=== PATIENT | female | born 1955 | race Caucasian/White ===

== ENCOUNTER 2019-06-15 04:40 | Inpatient (IN) | payer MEDICAID ==
[~2019-06-15] VITALS: Ht 157.5 cm; Wt 67.8 kg
--- NOTE | 2019-06-15 04:49 | PHYS DOC ---
Adult General Chief Complaint Chief Complaint: cough and shortness of breath HPI HPI Patient is a 63-year-old female who arrives via EMS with report of cough and shortness of breath for the last couple of weeks. Patient states that she believes that she she states that symptoms are progressively worsening since onset. She states that she has shortness of breath especially with exertion. She indicates that cough is really not been productive but she feels like she has to get mucus up. She states that she has soreness in her chest that she leaves is due to the coughing. She states that it is worsened with the coughing. She rates that pain as moderate. She is not sure whether or not she has been running a fever. She does admit some chills.[] Review of Systems Review of Systems Constitutional: Positive chills [] Respiratory: Positive cough and shortness of breath [] Cardiovascular: No additional information not addressed in HPI [] GI: Denies abdominal pain, nausea, vomiting or diarrhea [] Integument: Denies rash or skin lesions [] Neurologic: Denies headache, focal weakness or sensory changes [] All other systems were reviewed and found to be within normal limits, except as documented in this note. Current Medications Current Medications Current Medications Medications (Trade) Dose Ordered Sig/Candis Start Time Stop Time Status Last Admin Dose Admin Albuterol Sulfate (Ventolin Neb Soln) 5 mg 1X ONCE 06/15/19 05:30 06/15/19 05:31 DC 06/15/19 05:17 5 MG Azithromycin (Zithromax) 500 mg 1X ONCE 06/15/19 05:30 06/15/19 05:31 UNV Ceftriaxone Sodium (Rocephin) 1 gm 1X ONCE 06/15/19 05:30 06/15/19 05:31 UNV Ipratropium [place] (Atrovent) 0.5 mg 1X ONCE 06/15/19 05:30 06/15/19 05:31 DC 06/15/19 05:17 0.5 MG Sodium Chloride 1,000 ml @ 1,000 mls/hr 1X ONCE 06/15/19 05:30 06/15/19 06:29 UNV Allergies Allergies Allergies Coded Allergies Type Severity Reaction Last Updated Verified No Known Drug Allergies 06/15/19 No Physical Exam Physical Exam Constitutional: Well developed, well nourished, in mild respiratory distress. [] HENT: Normocephalic, atraumatic, bilateral external ears normal, oropharynx moist, no oral exudates, nose normal. [] Eyes: PERRLA, EOMI, conjunctiva normal, no discharge. [] Neck: Normal range of motion, no tenderness, supple, no stridor. [] Cardiovascular: Regular rate and rhythm[] Lungs & Thorax: Fairly good air movement is noted throughout with coarse insp iratory and expiratory wheezes and rhonchi to auscultation [] Abdomen: Bowel sounds normal, soft, no tenderness. [] Skin: Warm, dry, no erythema, no rash. [] Extremities: No tenderness, no cyanosis, no clubbing, ROM intact. [] Neurologic: Alert and oriented X 3, no focal deficits noted. [] Current Patient Data Vital Signs Vital Signs Date Time Temp Pulse Resp B/P (MAP) Pulse Ox O2 Delivery O2 Flow Rate FiO2 06/15/19 05:17 95 Room Air Lab Values Laboratory Tests Test 06/15/19 04:50 06/15/19 05:05 Influenza Type A Antigen Negative (NEGATIVE) Influenza Type B Antigen Negative (NEGATIVE) White Blood Count 17.0 x10^3/uL (4.0-11.0) H Red Blood Count 3.85 x10^6/uL (3.50-5.40) Hemoglobin 13.0 g/dL (12.0-15.5) Hematocrit 37.8 % (36.0-47.0) Mean Corpuscular Volume 98 fL (79-100) Mean Corpuscular Hemoglobin 34 pg (25-35) Mean Corpuscular Hemoglobin Concent 35 g/dL (31-37) Red Cell Distribution Width 14.4 % (11.5-14.5) Platelet Count 73 x10^3/uL (140-400) L Neutrophils (%) (Auto) 85 % (31-73) H Lymphocytes (%) (Auto) 3 % (24-48) L Monocytes (%) (Auto) 11 % (0-9) H Eosinophils (%) (Auto) 0 % (0-3) Basophils (%) (Auto) 0 % (0-3) Neutrophils # (Auto) 14.5 x10^3/uL (1.8-7.7) H Lymphocytes # (Auto) 0.6 x10^3/uL (1.0-4.8) L Monocytes # (Auto) 1.8 x10^3/uL (0.0-1.1) H Eosinophils # (Auto) 0.1 x10^3/uL (0.0-0.7) Basophils # (Auto) 0.0 x10^3/uL (0.0-0.2) Platelet Estimate Pending Sodium Level 136 mmol/L (136-145) Potassium Level 3.6 mmol/L (3.5-5.1) Chloride Level 101 mmol/L (98-107) Carbon Dioxide Level 25 mmol/L (21-32) Anion Gap 10 (6-14) Blood Urea Nitrogen 9 mg/dL (7-20) Creatinine 0.7 mg/dL (0.6-1.0) Estimated GFR (Cockcroft-Gault) 85.1 BUN/Creatinine Ratio 13 (6-20) Glucose Level 133 mg/dL (70-99) H Calcium Level 8.5 mg/dL (8.5-10.1) Total Bilirubin 2.0 mg/dL (0.2-1.0) H Aspartate Amino Transferase (AST) 79 U/L (15-37) H Alanine Aminotransferase (ALT) 63 U/L (14-59) H Alkaline Phosphatase 184 U/L (46-116) H Total Protein 8.1 g/dL (6.4-8.2) Albumin 2.6 g/dL (3.4-5.0) L Albumin/Globulin Ratio 0.5 (1.0-1.7) L Laboratory Tests 06/15/19 05:05 Laboratory Tests 06/15/19 05:05 EKG EKG [] Radiology/Procedures Radiology/Procedures [] Course & Med Decision Making Course & Med Decision Making Pertinent Labs and Imaging studies reviewed. (See chart for details) [] Dragon Disclaimer Dragon Disclaimer This electronic medical record was generated, in whole or in part, using a voice recognition dictation system. Departure Departure Impression: Primary Impression: CAP (community acquired pneumonia) Disposition: ADMITTED INPATIENT Admitting Physician: [facility] (Dr. Vences) Condition: IMPROVED Problem Qualifiers Primary Impression: CAP (community acquired pneumonia) Laterality: unspecified laterality Qualified Codes: J18.9 - Pneumonia, unspecified organism FERNANDO PERRY Jr. DO Jun 15, 2019 04:49
--- NOTE | 2019-06-15 05:04 | RAD ---
PORTABLE CHEST 1V History: Cough Comparison: None. Findings: Patchy left basilar opacity. No pneumothorax. Normal heart size. No pleural effusion. Calcified left lateral basilar nodule. Rounded density projecting over the right upper quadrant. Impression: 1. Patchy left basilar opacity, may represent atelectasis or consolidation. PA and lateral view the chest can better assess if clinically indicated. 2. Rounded density projecting over the right upper quadrant, may represent cholelithiasis. Electronically signed by: Ritchie Aguirre DO (06/15/2019 5:01 AM) [facility]
[2019-06-15 05:25] LABS: CALCIUM 8.5 mg/dL (8.5-10.1); CREATININE 0.7 mg/dL (0.6-1.0); GFR 85.1; POTASSIUM 3.6 mmol/L (3.5-5.1)
[2019-06-15 05:28] LABS: BASO % 0 % (0-3); EOS # 0.1 x10^3/uL (0.0-0.7); EOS % 0 % (0-3); HEMATOCRIT 37.8 % (36.0-47.0); LYMPH # 0.6 x10^3/uL (1.0-4.8); LYMPH % 3 % (24-48); MEAN CORPUSCULAR HEMOGLOBIN 34 pg (25-35); MEAN CORPUSCULAR HGB CONC 35 g/dL (31-37); MEAN CORPUSCULAR VOLUME 98 fL (79-100); MONO # 1.8 x10^3/uL (0.0-1.1); MONO % 11 % (0-9); NEUT # 14.5 x10^3/uL (1.8-7.7); NEUT % 85 % (31-73); RED BLOOD COUNT 3.85 x10^6/uL (3.50-5.40); RED CELL DISTRIBUTION WIDTH 14.4 % (11.5-14.5)
[2019-06-15 05:29] LABS: PLATELET COUNT 73 x10^3/uL (140-400)
[2019-06-15] MEDS ORDERED: ALBUTEROL SULFATE 2.5 MG/3 ML NEBU. NEB ONE (05:30)
[2019-06-15] MEDS ORDERED: IPRATROPIUM BROMIDE 0.5 MG/2.5 ML NEBU. NEB ONE (05:30)
[2019-06-15 05:31] LABS: ALBUMIN 2.6 g/dL (3.4-5.0); ALBUMIN/GLOBULIN RATIO 0.5 (1.0-1.7); TOTAL PROTEIN 8.1 g/dL (6.4-8.2)
[2019-06-15 05:33] LABS: INFLUENZA A PATIENT NEGATIVE (NEGATIVE); INFLUENZA B PATIENT NEGATIVE (NEGATIVE)
[2019-06-15] MEDS ORDERED: ACETAMINOPHEN 325 MG TABLET. PO PRN ×2 (05:45→13:00)
[2019-06-15] MEDS ORDERED: MORPHINE SULFATE 2 MG/ML VIAL. IV PRN (05:45)
[2019-06-15] MEDS ORDERED: ONDANSETRON PF 4 MG/2 ML VIAL. IV PRN ×2 (05:45→13:00)
[2019-06-15] MEDS ORDERED: AZITHROMYCIN 250 MG TABLET. PO ONE (06:00)
[2019-06-15] MEDS ORDERED: IV NORMAL SALINE 1000ML BAG 1,000 ML IV ONE (06:00)
[2019-06-15] MEDS ORDERED: cefTRIAXone IV Push 1 GM VIAL. IVP ONE (06:00)
[2019-06-15 06:10] LABS: % BANDS 15 % (0-9); % EOS 2 % (0-5); % LYMPHS 6 % (24-48); % MONOS 10 % (0-10); % MYELOS 1 % (0-0); % SEGS 66 % (35-66)
[2019-06-15 06:12] LABS: PLT ESTIMATE DECREASED (ADEQUATE)
--- NOTE | 2019-06-15 06:50 | EKG ---
[facility] [address] [place] [address] Test Date: 2019-06-15 Test Time: 04:50:14 Pat Name: JOHN NEGRO Department: Room: Gender: F Beauty Sales Consultant: : 1955 Requested By: FERNANDO PERRY Order Number: [id number] Reading MD: Measurements Intervals [place] Rate: 93 P: 104 MS: 130 QRS: -1 QRSD: 94 T: 90 QT: 340 QTc: 425 Interpretive Statements SINUS RHYTHM LEFTWARD AXIS RVH WITH REPOLARIZATION ABNORMALITY ABNORMAL ECG RI6.01 No previous ECG available for comparison
[2019-06-15] MEDS: IPRATRPIUM/ALBUTEROL 0.5/2.5MG 3 ML NEBU. NEB SCH ×7 (07:01→23:58)
[2019-06-15 07:08] LABS: BILIRUBIN,URINE NEGATIVE (NEG); CLARITY,URINE CLEAR; NITRITE,URINE NEGATIVE (NEG); PH,URINE 6.5; PROTEIN,URINE NEGATIVE (NEG-TRACE)
[2019-06-15 07:15] LABS: COLOR,URINE YELLOW
[2019-06-15 07:16] LABS: SQUAMOUS EPITHELIAL CELL,UR FEW /LPF
[2019-06-15 07:18] LABS: BACTERIA,URINE MODERATE /HPF (0-FEW); RBC,URINE OCC /HPF (0-2)
--- NOTE | 2019-06-15 10:09 | PDOC1 ---
History and Physical Date of Admission Date of Admission DATE: 06/15/19 TIME: 10:09 Identification/Chief Complaint Chief Complaint seen in ER 63-year-old female who arrives via EMS with report of cough and shortness of breath for the last couple of weeks cough is really not been productive but she feels like she has to get mucus up. SMOKED 1 PPD UNTIL 2 WEEKS AGO has soreness in her chest that she feels is due to the coughing. She states that it is worsened with the coughing. She rates that pain as moderate. WAS TOLD SHE HAD HEPATIC CANCER IN 2015 AT [facility], BUT NEVER FOLLOWED UP WITH THEM, dejah petty pending Past Medical History Cardiovascular: Hyperlipidemia Pulmonary: COPD GI: GERD Heme/Onc: Cancer ENT: No pertinent hx Family History Family History: Hypertension Social History Smoke: <1 pack per day ALCOHOL: none Drugs: None Current Problem List Problem List Problems Medical Problems: (1) CAP (community acquired pneumonia) Status: Acute Current Medications Current Medications Current Medications Albuterol Sulfate (Ventolin Neb Soln) 5 mg 1X ONCE NEB Last administered on 06/15/19at 05:17; Start 06/15/19 at 05:30; Stop 06/15/19 at 05:31; Status DC Ipratropium [place] (Atrovent) 0.5 mg 1X ONCE NEB Last administered on 06/15/19at 05:17; Start 06/15/19 at 05:30; Stop 06/15/19 at 05:31; Status DC Sodium Chloride 1,000 ml @ 1,000 mls/hr 1X ONCE IV Last administered on 06/15/19at 06:10; Start 06/15/19 at 06:00; Stop 06/15/19 at 06:59; Status DC Ceftriaxone Sodium (Rocephin) 1 gm 1X ONCE IVP Last administered on 06/15/19at 06:14; Start 06/15/19 at 06:00; Stop 06/15/19 at 06:01; Status DC Azithromycin (Zithromax) 500 mg 1X ONCE PO Last administered on 06/15/19at 06:14; Start 06/15/19 at 06:00; Stop 06/15/19 at 06:01; Status DC Ondansetron HCl (Zofran) 4 mg PRN Q8HRS PRN IV NAUSEA/VOMITING 1ST CHOICE; Start 06/15/19 at 05:45; Stop 06/16/19 at 05:44 Morphine Sulfate (Morphine Sulfate) 2 mg PRN Q2HR PRN IV SEVERE PAIN 7-10; Start 06/15/19 at 05:45; Stop 06/16/19 at 05:44 Acetaminophen (Tylenol) 650 mg PRN Q4HRS PRN PO FEVER; Start 06/15/19 at 05:45; Stop 06/16/19 at 05:44 Albuterol/ Ipratropium (Duoneb) 3 ml RTQID NEB Last administered on 06/15/19at 07:01; Start 06/15/19 at 08:00; Stop 06/16/19 at 07:59 Allergies Allergies: Coded Allergies: tetracycline (Verified Allergy, Intermediate, Hives, 06/15/19) ROS Review of System Review of Systems Review of Systems Constitutional: Positive chills [] Respiratory: Positive cough and shortness of breath [] Cardiovascular: No additional information not addressed in HPI [] GI: Denies abdominal pain, nausea, vomiting or diarrhea [] Integument: Denies rash or skin lesions [] Neurologic: Denies headache, focal weakness or sensory changes [] All other systems were reviewed and found to be within normal limits, except as documented in this note. General: YES: Fatigue PSYCHOLOGICAL ROS: YES: Depression Respiratory: YES: Cough, Pleuritic Pain, Shortness of breath, SOB with e xcertion, Sputum Changes Cardiovascular: yes Chest Pain Gastrointestinal: Yes Nausea, Yes Other (distension) Physical Exam Physical Exam Physical Exam Physical Exam Constitutional: Well developed, well nourished, in mild respiratory distress. [] HENT: Normocephalic, atraumatic, bilateral external ears normal, oropharynx moist, no oral exudates, nose normal. [] Eyes: PERRLA, EOMI, conjunctiva normal, no discharge. [] Neck: Normal range of motion, no tenderness, supple, no stridor. [] Cardiovascular: Regular rate and rhythm[] Lungs & Thorax: Fairly good air movement is noted throughout with coarse inspiratory and expiratory wheezes and rhonchi to auscultation [] Abdomen: Bowel sounds normal, soft, MILD tenderness. ASCITES, HEPATOMEGALY[] Skin: Warm, dry, no erythema, no rash. [] Extremities: No tenderness, no cyanosis, no clubbing, ROM intact. [] Neurologic: Alert and oriented X 3, no focal deficits noted. [] General: Alert, Oriented X3, Cooperative, mild distress HEENT: EOMI Lungs: Normal air movement Breasts: Not examined Abdomen: Normal bowel sounds, Soft, No tenderness, Other (ASTITES, DISTENDED, HEPATOMEGALY) Rectal Exam: not examined PELVIC: Examination not indicated Extremities: No cyanosis Neuro: Normal speech, Cranial nerves 3-12 NL Psych/Mental Status: Mental status NL, Mood NL Vitals Vitals Vital Signs Date Time Temp Pulse Resp B/P (MAP) Pulse Ox O2 Delivery O2 Flow Rate FiO2 06/15/19 07:37 92 18 91/52 (65) 92 Room Air 06/15/19 07:02 2.0 06/15/19 04:45 98.3 98.3 Labs Labs Laboratory Tests Test 06/15/19 04:50 06/15/19 05:05 06/15/19 07:01 06/15/19 08:53 Influenza Type A Antigen Negative (NEGATIVE) Influenza Type B Antigen Negative (NEGATIVE) White Blood Count 17.0 x10^3/uL (4.0-11.0) Red Blood Count 3.85 x10^6/uL (3.50-5.40) Hemoglobin 13.0 g/dL (12.0-15.5) Hematocrit 37.8 % (36.0-47.0) Mean Corpuscular Volume 98 fL (79-100) Mean Corpuscular Hemoglobin 34 pg (25-35) Mean Corpuscular Hemoglobin Concent 35 g/dL (31-37) Red Cell Distribution Width 14.4 % (11.5-14.5) Platelet Count 73 x10^3/uL (140-400) Neutrophils (%) (Auto) 85 % (31-73) Lymphocytes (%) (Auto) 3 % (24-48) Monocytes (%) (Auto) 11 % (0-9) Eosinophils (%) (Auto) 0 % (0-3) Basophils (%) (Auto) 0 % (0-3) Neutrophils # (Auto) 14.5 x10^3/uL (1.8-7.7) Lymphocytes # (Auto) 0.6 x10^3/uL (1.0-4.8) Monocytes # (Auto) 1.8 x10^3/uL (0.0-1.1) Eosinophils # (Auto) 0.1 x10^3/uL (0.0-0.7) Basophils # (Auto) 0.0 x10^3/uL (0.0-0.2) Segmented Neutrophils % 66 % (35-66) Band Neutrophils % 15 % (0-9) Lymphocytes % 6 % (24-48) Monocytes % 10 % (0-10) Eosinophils % 2 % (0-5) Myelocytes % 1 % (0-0) Platelet Estimate Decreased (ADEQUATE) Sodium Level 136 mmol/L (136-145) Potassium Level 3.6 mmol/L (3.5-5.1) Chloride Level 101 mmol/L (98-107) Carbon Dioxide Level 25 mmol/L (21-32) Anion Gap 10 (6-14) Blood Urea Nitrogen 9 mg/dL (7-20) Creatinine 0.7 mg/dL (0.6-1.0) Estimated GFR (Cockcroft-Gault) 85.1 BUN/Creatinine Ratio 13 (6-20) Glucose Level 133 mg/dL (70-99) Lactic Acid Level 2.5 mmol/L (0.4-2.0) 2.0 mmol/L (0.4-2.0) Calcium Level 8.5 mg/dL (8.5-10.1) Total Bilirubin 2.0 mg/dL (0.2-1.0) Aspartate Amino Transf (AST/SGOT) 79 U/L (15-37) Alanine Aminotransferase (ALT/SGPT) 63 U/L (14-59) Alkaline Phosphatase 184 U/L (46-116) Troponin I Quantitative < 0.017 ng/mL (0.000-0.055) UK-Owe-T-Type Natriuretic Peptide 174 pg/mL (0-124) Total Protein 8.1 g/dL (6.4-8.2) Albumin 2.6 g/dL (3.4-5.0) Albumin/Globulin Ratio 0.5 (1.0-1.7) Urine Collection Type Void Urine Color Yellow Urine Clarity Clear Urine pH 6.5 Urine Specific Denhoff 1.010 Urine Protein Negative mg/dL (NEG-TRACE) Urine Glucose (UA) Negative mg/dL (NEG) Urine Ketones (Stick) Negative mg/dL (NEG) Urine Blood Negative (NEG) Urine Nitrite Negative (NEG) Urine Bilirubin Negative (NEG) Urine Urobilinogen Dipstick 2.0 mg/dL (0.2 mg/dL) Urine Leukocyte Esterase Negative (NEG) Urine RBC Occ /HPF (0-2) Urine WBC 1-4 /HPF (0-4) Urine Squamous Epithelial Cells Few /LPF Urine Renal Epithelial Cells Few /LPF Urine Bacteria Moderate /HPF (0-FEW) Urine Mucus Mod /LPF Laboratory Tests Test 06/15/19 04:50 06/15/19 05:05 06/15/19 07:01 06/15/19 08:53 Influenza Type A Antigen Negative (NEGATIVE) Influenza Type B Antigen Negative (NEGATIVE) White Blood Count 17.0 x10^3/uL (4.0-11.0) Red Blood Count 3.85 x10^6/uL (3.50-5.40) Hemoglobin 13.0 g/dL (12.0-15.5) Hematocrit 37.8 % (36.0-47.0) Mean Corpuscular Volume 98 fL (79-100) Mean Corpuscular Hemoglobin 34 pg (25-35) Mean Corpuscular Hemoglobin Concent 35 g/dL (31-37) Red Cell Distribution Width 14.4 % (11.5-14.5) Platelet Count 73 x10^3/uL (140-400) Neutrophils (%) (Auto) 85 % (31-73) Lymphocytes (%) (Auto) 3 % (24-48) Monocytes (%) (Auto) 11 % (0-9) Eosinophils (%) (Auto) 0 % (0-3) Basophils (%) (Auto) 0 % (0-3) Neutrophils # (Auto) 14.5 x10^3/uL (1.8-7.7) Lymphocytes # (Auto) 0.6 x10^3/uL (1.0-4.8) Monocytes # (Auto) 1.8 x10^3/uL (0.0-1.1) Eosinophils # (Auto) 0.1 x10^3/uL (0.0-0.7) Basophils # (Auto) 0.0 x10^3/uL (0.0-0.2) Segmented Neutrophils % 66 % (35-66) Band Neutrophils % 15 % (0-9) Lymphocytes % 6 % (24-48) Monocytes % 10 % (0-10) Eosinophils % 2 % (0-5) Myelocytes % 1 % (0-0) Platelet Estimate Decreased (ADEQUATE) Sodium Level 136 mmol/L (136-145) Potassium Level 3.6 mmol/L (3.5-5.1) Chloride Level 101 mmol/L (98-107) Carbon Dioxide Level 25 mmol/L (21-32) Anion Gap 10 (6-14) Blood Urea Nitrogen 9 mg/dL (7-20) Creatinine 0.7 mg/dL (0.6-1.0) Estimated GFR (Cockcroft-Gault) 85.1 BUN/Creatinine Ratio 13 (6-20) Glucose Level 133 mg/dL (70-99) Lactic Acid Level 2.5 mmol/L (0.4-2.0) 2.0 mmol/L (0.4-2.0) Calcium Level 8.5 mg/dL (8.5-10.1) Total Bilirubin 2.0 mg/dL (0.2-1.0) Aspartate Amino Transf (AST/SGOT) 79 U/L (15-37) Alanine Aminotransferase (ALT/SGPT) 63 U/L (14-59) Alkaline Phosphatase 184 U/L (46-116) Troponin I Quantitative < 0.017 ng/mL (0.000-0.055) GQ-Ity-X-Type Natriuretic Peptide 174 pg/mL (0-124) Total Protein 8.1 g/dL (6.4-8.2) Albumin 2.6 g/dL (3.4-5.0) Albumin/Globulin Ratio 0.5 (1.0-1.7) Urine Collection Type Void Urine Color Yellow Urine Clarity Clear Urine pH 6.5 Urine Specific Denhoff 1.010 Urine Protein Negative mg/dL (NEG-TRACE) Urine Glucose (UA) Negative mg/dL (NEG) Urine Ketones (Stick) Negative mg/dL (NEG) Urine Blood Negative (NEG) Urine Nitrite Negative (NEG) Urine Bilirubin Negative (NEG) Urine Urobilinogen Dipstick 2.0 mg/dL (0.2 mg/dL) Urine Leukocyte Esterase Negative (NEG) Urine RBC Occ /HPF (0-2) Urine WBC 1-4 /HPF (0-4) Urine Squamous Epithelial Cells Few /LPF Urine Renal Epithelial Cells Few /LPF Urine Bacteria Moderate /HPF (0-FEW) Urine Mucus Mod /LPF Images Images PORTABLE CHEST 1V History: Cough Comparison: None. Findings: Patchy left basilar opacity. No pneumothorax. Normal heart size. No pleural effusion. Calcified left lateral basilar nodule. Rounded density projecting over the right upper quadrant. Impression: 1. Patchy left basilar opacity, may represent atelectasis or consolidation. PA and lateral view the chest can better assess if clinically indicated. 2. Rounded density projecting over the right upper quadrant, may represent cholelithiasis. Electronically signed by: Chely Givens DO (06/15/2019 5:01 AM) [facility] DICTATED and SIGNED BY: CHELY GIVENS DO DATE: 06/15/19 0501 VTE Prophylaxis Ordered VTE Prophylaxis Devices: Yes VTE Pharmacological Prophylaxi: Yes Assessment/Plan Assessment/Plan Impression: 1. Patchy left basilar opacity, may represent atelectasis or consolidation. CAP (community acquired pneumonia) 2. Rounded density projecting over the right upper quadrant, may represent cholelithiasis. 3. severe protein-caloric malnutrition 4. ACUTE HYPOXIC RESPIRATORY FAILURE 5, TRANSAMINITIS, POSSIBLE HEPATIC TUMOR, ascites PLAN ADMIT O2 SUPPORT ABG pulm consult cvc bed serial troponin i echo emperic iv antibiotics dvt prophylaxis GI PROPHYLAXIS GI CONSULT ABDOMINAL SONO IV ZITHROMAX, ZOSYN ct abdomen 74 MIN PT EXAM, CHART REVIEW, > 50% OF TIME SPENT WITH EXAM, CHART REVIEW, PT CARE COORDINATION ZAIDA KHALIL MD Jun 15, 2019 10:09
[2019-06-15 10:30] VITALS: BP 108/57
[2019-06-15] MEDS ORDERED: FLU VAX QS 2019-20 (36MOS+)/PF 0.5 ML SYRINGE. VAX IM ONE (11:45)
[2019-06-15 11:57] LABS: BASE EXCESS ABG 0 mmol/L (-3-3); HCO3 ABG 23 mmol/L (21-28); PCO2 ABG 30 mmHg (35-46); PO2 ABG 60 mmHg (65-108); SAT O2 ABG 92 % (92-99)
[2019-06-15 12:03] LABS: FIO2 ABG 21
[2019-06-15] MEDS: PIPERACILLIN/TAZOBACTAM 3.375 GM in IV NORMAL SALINE 50ML 50 ML IV SCH ×2 (12:50→17:49)
[2019-06-15] MEDS ORDERED: 0.9 % SODIUM CHLORIDE 10 ML DISP.SYRIN. IV PRN (13:00)
[2019-06-15] MEDS ORDERED: LORazepam 0.5 MG TABLET PO PRN (13:00)
[2019-06-15] MEDS ORDERED: MAG HYDROX/ALUMINUM HYD/SIMETH 30 ML ORAL.SUSP PO PRN (13:00)
[2019-06-15] MEDS ORDERED: cloNIDine HCL 0.1 MG TABLET PO PRN (13:00)
[2019-06-15] MEDS ORDERED: guaiFENesin ORAL 200 MG/10 ML LIQUID. PO PRN (13:00)
[2019-06-15] MEDS ORDERED: DOCUSATE SODIUM 100 MG CAPSULE. PO PRN (13:00)
--- NOTE | 2019-06-15 13:08 | PDOC2 ---
CARDIAC CONSULT DATE OF CONSULT Date of Consult DATE: 06/15/19 TIME: 13:04 REASON FOR CONSULT Reason for Consult: Chest discomfort REFERRING PHYSICIAN Referring Physician: Dr. Lowe SOURCE Source: Chart review, Patient HISTORY OF PRESENT ILLNESS HISTORY OF PRESENT ILLNESS This is a 63 yo female who presented secondary to shortness of breath and cough. Patient reports persistent congestion, cough for the last 2 weeks. Cough eventually cause raw feeling in her chest, which prompted her to come to the ED for further evaluation and treatment. Pain only present with coughing. No dizziness, diaphoresis, or nausea/vomiting. No prior h/o CAD. Does have a history of liver CA, but details unknown. PAST MEDICAL HISTORY Heme/Onc: Cancer (liver ) Endocrine: Diabetes PAST SURGICAL HISTORY Past Surgical History: No pertinent history FAMILY HISTORY Family History: Diabetes SOCIAL HISTORY Smoke: <1 pack per day ALCOHOL: none Drugs: None Lives: Alone CURRENT MEDICATIONS CURRENT MEDICATIONS Current Medications Medications (Trade) Dose Ordered Sig/Candis Route PRN Reason Start Time Stop Time Status Last Admin Dose Admin Albuterol Sulfate (Ventolin Neb Soln) 5 mg 1X ONCE NEB 06/15/19 05:30 06/15/19 05:31 DC 06/15/19 05:17 Ipratropium [place] (Atrovent) 0.5 mg 1X ONCE NEB 06/15/19 05:30 06/15/19 05:31 DC 06/15/19 05:17 Sodium Chloride 1,000 ml @ 1,000 mls/hr 1X ONCE IV 06/15/19 06:00 06/15/19 06:59 DC 06/15/19 06:10 Ceftriaxone Sodium (Rocephin) 1 gm 1X ONCE IVP 06/15/19 06:00 06/15/19 06:01 DC 06/15/19 06:14 Azithromycin (Zithromax) 500 mg 1X ONCE PO 06/15/19 06:00 06/15/19 06:01 DC 06/15/19 06:14 Albuterol/ Ipratropium (Duoneb) 3 ml RTQID NEB 06/15/19 08:00 06/16/19 07:59 06/15/19 11:24 Piperacillin Sod/ Tazobactam Sod 3.375 gm/Sodium Chloride 50 ml @ 100 mls/hr Q6HRS IV 06/15/19 12:00 06/15/19 12:50 ALLERGIES ALLERGIES: Coded Allergies: tetracycline (Verified Allergy, Intermediate, Hives, 06/15/19) ROS Review of System 14 point ROS conducted with pertinent positives noted above in HPI. PHYSICAL EXAM General: Alert, Oriented X3, Cooperative, No acute distress HEENT: Atraumatic, Mucous membr. moist/pink Lungs: Other (coarse throughout with fine expiratory wheezing) Heart: Regular rate, Normal S1, Normal S2 Abdomen: Soft, Other (mild ascites ) Extremities: No edema, Normal pulses Skin: No significant lesion Neuro: Normal speech, Sensation intact Psych/Mental Status: Mood NL MUSCULOSKELETAL: Osteoarthritic changes both hands VITALS/I&O VITALS/I&O: Vital Signs Date Time Temp Pulse Resp B/P (MAP) Pulse Ox O2 Delivery O2 Flow Rate FiO2 06/15/19 11:54 Room Air 06/15/19 11:24 92 06/15/19 10:30 99.1 81 20 108/57 (74) 99.1 06/15/19 07:02 2.0 LABS Lab: Laboratory Tests Test 06/15/19 04:50 06/15/19 05:05 06/15/19 07:01 06/15/19 08:53 Influenza Type A Antigen Negative (NEGATIVE) Influenza Type B Antigen Negative (NEGATIVE) White Blood Count 17.0 x10^3/uL (4.0-11.0) H Red Blood Count 3.85 x10^6/uL (3.50-5.40) Hemoglobin 13.0 g/dL (12.0-15.5) Hematocrit 37.8 % (36.0-47.0) Mean Corpuscular Volume 98 fL (79-100) Mean Corpuscular Hemoglobin 34 pg (25-35) Mean Corpuscular Hemoglobin Concent 35 g/dL (31-37) Red Cell Distribution Width 14.4 % (11.5-14.5) Platelet Count 73 x10^3/uL (140-400) L Neutrophils (%) (Auto) 85 % (31-73) H Lymphocytes (%) (Auto) 3 % (24-48) L Monocytes (%) (Auto) 11 % (0-9) H Eosinophils (%) (Auto) 0 % (0-3) Basophils (%) (Auto) 0 % (0-3) Neutrophils # (Auto) 14.5 x10^3/uL (1.8-7.7) H Lymphocytes # (Auto) 0.6 x10^3/uL (1.0-4.8) L Monocytes # (Auto) 1.8 x10^3/uL (0.0-1.1) H Eosinophils # (Auto) 0.1 x10^3/uL (0.0-0.7) Basophils # (Auto) 0.0 x10^3/uL (0.0-0.2) Segmented Neutrophils % 66 % (35-66) Band Neutrophils % 15 % (0-9) H Lymphocytes % 6 % (24-48) L Monocytes % 10 % (0-10) Eosinophils % 2 % (0-5) Myelocytes % 1 % (0-0) H Platelet Estimate Decreased (ADEQUATE) Sodium Level 136 mmol/L (136-145) Potassium Level 3.6 mmol/L (3.5-5.1) Chloride Level 101 mmol/L (98-107) Carbon Dioxide Level 25 mmol/L (21-32) Anion Gap 10 (6-14) Blood Urea Nitrogen 9 mg/dL (7-20) Creatinine 0.7 mg/dL (0.6-1.0) Estimated GFR (Cockcroft-Gault) 85.1 BUN/Creatinine Ratio 13 (6-20) Glucose Level 133 mg/dL (70-99) H Lactic Acid Level 2.5 mmol/L (0.4-2.0) H 2.0 mmol/L (0.4-2.0) Calcium Level 8.5 mg/dL (8.5-10.1) Total Bilirubin 2.0 mg/dL (0.2-1.0) H Aspartate Amino Transferase (AST) 79 U/L (15-37) H Alanine Aminotransferase (ALT) 63 U/L (14-59) H Alkaline Phosphatase 184 U/L (46-116) H Troponin I Quantitative < 0.017 ng/mL (0.000-0.055) DR-Mnb-[id number]-Type Natriuretic Peptide 174 pg/mL (0-124) H Total Protein 8.1 g/dL (6.4-8.2) Albumin 2.6 g/dL (3.4-5.0) L Albumin/Globulin Ratio 0.5 (1.0-1.7) L Urine Collection Type Void Urine Color Yellow Urine Clarity Clear Urine pH 6.5 Urine Specific Means 1.010 Urine Protein Negative mg/dL (NEG-TRACE) Urine Glucose (UA) Negative mg/dL (NEG) Urine Ketones (Stick) Negative mg/dL (NEG) Urine Blood Negative (NEG) Urine Nitrite Negative (NEG) Urine Bilirubin Negative (NEG) Urine Urobilinogen Dipstick 2.0 mg/dL (0.2 mg/dL) Urine Leukocyte Esterase Negative (NEG) Urine RBC Occ /HPF (0-2) Urine WBC 1-4 /HPF (0-4) Urine Squamous Epithelial Cells Few /LPF Urine Renal Epithelial Cells Few /LPF Urine Bacteria Moderate /HPF (0-FEW) Urine Mucus Mod /LPF Test 06/15/19 11:54 O2 Saturation 92 % (92-99) Arterial Blood pH 7.50 (7.35-7.45) H Arterial Blood pCO2 at Patient Temp 30 mmHg (35-46) L Arterial Blood pO2 at Patient Temp 60 mmHg (65-108) L Arterial Blood HCO3 23 mmol/L (21-28) Arterial Blood Base Excess 0 mmol/L (-3-3) FiO2 21 Laboratory Tests 06/15/19 05:05 Laboratory Tests 06/15/19 05:05 ASSESSMENT/PLAN ASSESSMENT/PLAN 1. Acute respiratory failure with AECOPD and PNA 2. Leukocytosis, lactic acidosis 3. Chest pain, atypical. Most probably secondary to persistent cough 4. Transaminitis, Hepatitic C, cirrohosis, liver CA, ascites. Was diagnosed at , but has not followed up well. GI consulted. 5. Cholelithiasis Recommendations Echo to assess LV systolic function Lipids Ongoing antibiotic therapy. If echo WNL, no further cardiac workup warranted at this time. COSME HORAN APRN Jun 15, 2019 13:08
--- NOTE | 2019-06-15 13:21 | RAD ---
Examination: ABDOMEN COMPLETE History: Transaminitis Comparison/Correlation: 06/15/2019 CT abdomen and pelvis without contrast Findings: Hepatic echotexture is within normal limits. Portal venous flow is normal. Common bile duct measures 0.54 cm diameter. No biliary dilatation. Spleen is enlarged measuring 17.21 cm longitudinal but has a normal echotexture. Large amount of ascites is noted involving the 4 quadrants. Cholelithiasis is present without findings of biliary dilatation. Slight gallbladder wall thickening likely relates to presence of ascites. Proximal pancreas is normal. Distal pancreas is obscured by bowel gas. Right kidney measures 10.6 cm x 4.6 cm x 4.2 cm. Left kidney measures 11.9 cm x 3.9 cm x 4.4 cm. No hydronephrosis. Renal echotexture and contours are unremarkable. Impression: Cholelithiasis. No biliary dilatation. Ascites. Splenomegaly. Electronically signed by: Kevin Aly MD (06/15/2019 1:18 PM) [facility]
[2019-06-15] MEDS ORDERED: IOHEXOL 300 MG/ML 100ML VIAL. IV ONE (13:30)
[2019-06-15] MEDS ORDERED: CONTRAST GIVEN. MC PRN (13:30)
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
[2019-06-15 15:00] VITALS: BP 113/59
[2019-06-15] MEDS: IV NORMAL SALINE 1000ML BAG 1,000 ML IV SCH ×2 (15:23→23:00)
[2019-06-15] MEDS: AZITHROMYCIN 500 MG in IV NORMAL SALINE 250ML 250 ML IV SCH (15:24)
--- NOTE | 2019-06-15 15:35 | CARD ---
MR#: [id number] Date of Study: 06/15/2019 Ordering Physician: ZAIDA KHALIL, Referring Physician: Donnell VERDUGO: Liz Gamino APPROVED REPORT EXAM: Two-dimensional and M-mode echocardiogram with Doppler and color Doppler. Other Information Quality : AverageHR: 78bpm INDICATION Chest Pain 2D DIMENSIONS RVDd2.9 (2.9-3.5cm)Left Atrium(2D)3.8 (1.6-4.0cm) IVSd1.4 (0.7-1.1cm)Aortic Root(2D)1.7 (2.0-3.7cm) LVDd3.0 (3.9-5.9cm)LVOT Diameter1.8 (1.8-2.4cm) PWd0.9 (0.7-1.1cm)LVDs1.8 (2.5-4.0cm) FS (%) 40.1 %SV25.3 ml LVEF(%)72.3 (>50%) Aortic Valve AoV Peak Nikos.190.5cm/sAoV VTI35.5cm AO Peak GR.14.5mmHgLVOT Peak Nikos.140.6cm/s AO Mean GR.8mmHgAVA (VMAX)1.91cm2 Mitral Valve MV E Nvyfugiq511.6cm/sMV E Peak Gr.4mmHg MV DECEL [id number] A Gopnspvf24.9cm/s MV E Mean Gr.2mmHgE/A Ratio1.2 Pulmonary Valve PV Peak Vzytutgb590.5cm/s Tricuspid Valve TR P. Zfnadfbt550uz/sRAP [id number] TR Peak Gr.48ytByDSWJ86jhCe Pulmonary Vein S1 Yhphficv51.2cm/sD2 Kbaimofz275.2cm/s LEFT VENTRICLE The left ventricle is normal size. There is normal left ventricular wall thickness. The left ventricu lar systolic function is normal and the ejection fraction is within normal range. The Ejection Fracti on is 65-70%. There is normal LV segmental wall motion. Transmitral Doppler flow pattern is Grade II- pseudonormal filling dynamics. RIGHT VENTRICLE The right ventricle is normal size. The right ventricular systolic function is normal. ATRIA The left atrium size is normal. The right atrium size is normal. The interatrial septum is intact wit h no evidence for an atrial septal defect or patent foramen ovale as noted on 2-D or Doppler imaging. AORTIC VALVE The aortic valve is thickened but opens well. Doppler and Color Flow revealed no significant aortic r egurgitation. There is no significant aortic valvular stenosis. MITRAL VALVE The mitral valve is thickened but opens well. There is no evidence of mitral valve prolapse. There is no mitral valve stenosis. Doppler and Color-flow revealed trace mitral regurgitation. TRICUSPID VALVE The tricuspid valve is normal in structure and function. Doppler and Color Flow revealed mild tricusp id regurgitation with an estimated PAP of 35 mmHg. There is no tricuspid valve stenosis. PULMONIC VALVE The pulmonic valve is not well visualized. Doppler and Color Flow revealed no pulmonic valvular regur gitation. There is no pulmonic valvular stenosis. GREAT VESSELS The aortic root is normal in size. The ascending aorta is normal in size. The IVC is normal in size a nd collapses >50% with inspiration. PERICARDIAL EFFUSION There is no evidence of significant pericardial effusion. Critical Notification Critical Value: No <Conclusion> The left ventricular systolic function is normal and the ejection fraction is within normal range. Th e Ejection Fraction is 65-70%. There is normal LV segmental wall motion. Doppler and Color Flow revealed mild tricuspid regurgitation with an estimated PAP of 35 mmHg. Signed by : Manuel Lynn, Electronically Approved : 06/15/2019 15:34:25
--- NOTE | 2019-06-15 15:39 | PDOC2 ---
PALLIATIVE CARE Palliative Care Note Palliative Care Consult requested by Dr. Lowe to address Advanced Directive. Medical Assessment per medical record; 1. Patchy left basilar opacity, may represent atelectasis or consolidation. CAP (community acquired pneumonia) 2. Rounded density projecting over the right upper quadrant, may represent chol elithiasis. 3. severe protein-caloric malnutrition 4. ACUTE HYPOXIC RESPIRATORY FAILURE 5, TRANSAMINITIS, POSSIBLE HEPATIC TUMOR, ascites Patient in Radiology. LACI KUMAR Jun 15, 2019 15:39
--- NOTE | 2019-06-15 15:48 | RAD ---
Examination: CT ABDOMEN PELVIS WO/W History: Splenomegaly, liver mass Comparison/Correlation: abdominal ultrasound exam performed earlier on same day Findings: Axial images of the abdomen and pelvis were obtained following IV contrast in the arterial phase, portal venous and delayed nephrographic phases. Precontrast axial images through the abdomen were also obtained. Bibasilar costophrenic sulcus atelectasis greater on the left noted. Interstitial thickening of the left lung base. Calcified granuloma involving the lateral left lung base. There is a 1.8 cm calculus present within the gallbladder. Nodular contour of the liver is evident. No suspicious enhancement to suggest MS lesion. No biliary dilatation. Spleen is enlarged measuring 17 cm longitudinal. It is homogeneous in appearance. Varices are notable about the splenic hilum extending into the gastrohepatic ligament region. Esophageal varices also noted. Incomplete opacification of the main portal vein and left portal vein noted. Filling defect of concern for thrombus is evident. Nonenlarged retroperitoneal aortocaval lymph nodes are present. Diverticulosis of the colon is identified. Appendix is not definitely delineated. No definite inflammatory change about the cecum although evaluation is limited due to presence of ascites. No bowel obstruction. Moderate quantity of ascites is noted within the abdomen and pelvis. Urinary bladder is unremarkable. Levo convexity of the low thoracic and lumbar spine. No acute bony process. Impression: Nodular contour of the liver likely representing cirrhosis with associated portal hypertension and splenomegaly. Esophageal varices and splenic arteries. No suspicious hepatic mass. Main portal and left portal venous filling defects of concern for thrombus noted. Moderate to large amount of ascites. ascites. Cholelithiasis. Minimal bibasilar atelectasis greater on the left. PQRS Compliance Statement: One or more of the following individualized dose reduction techniques were utilized for this examination: 1. Automated exposure control 2. Adjustment of the mA and/or kV according to patient size 3. Use of iterative reconstruction technique Electronically signed by: Kevin Aly MD (06/15/2019 3:45 PM) [facility]
[2019-06-15 16:04] LABS: PROTHROMBIN TIME PATIENT 16.2 SEC (11.7-14.0)
--- NOTE | 2019-06-15 17:13 | PDOC ---
PULMONARY PROGRESS NOTES Vitals Vital Signs Date Time Temp Pulse Resp B/P (MAP) Pulse Ox O2 Delivery O2 Flow Rate FiO2 06/15/19 15:56 92 Room Air 06/15/19 15:00 97.8 83 20 113/59 (77) 97.8 06/15/19 07:02 2.0 Labs Laboratory Tests Test 06/15/19 04:50 06/15/19 05:05 06/15/19 07:01 06/15/19 08:53 Influenza Type A Antigen Negative (NEGATIVE) Influenza Type B Antigen Negative (NEGATIVE) White Blood Count 17.0 x10^3/uL (4.0-11.0) Red Blood Count 3.85 x10^6/uL (3.50-5.40) Hemoglobin 13.0 g/dL (12.0-15.5) Hematocrit 37.8 % (36.0-47.0) Mean Corpuscular Volume 98 fL (79-100) Mean Corpuscular Hemoglobin 34 pg (25-35) Mean Corpuscular Hemoglobin Concent 35 g/dL (31-37) Red Cell Distribution Width 14.4 % (11.5-14.5) Platelet Count 73 x10^3/uL (140-400) Neutrophils (%) (Auto) 85 % (31-73) Lymphocytes (%) (Auto) 3 % (24-48) Monocytes (%) (Auto) 11 % (0-9) Eosinophils (%) (Auto) 0 % (0-3) Basophils (%) (Auto) 0 % (0-3) Neutrophils # (Auto) 14.5 x10^3/uL (1.8-7.7) Lymphocytes # (Auto) 0.6 x10^3/uL (1.0-4.8) Monocytes # (Auto) 1.8 x10^3/uL (0.0-1.1) Eosinophils # (Auto) 0.1 x10^3/uL (0.0-0.7) Basophils # (Auto) 0.0 x10^3/uL (0.0-0.2) Segmented Neutrophils % 66 % (35-66) Band Neutrophils % 15 % (0-9) Lymphocytes % 6 % (24-48) Monocytes % 10 % (0-10) Eosinophils % 2 % (0-5) Myelocytes % 1 % (0-0) Platelet Estimate Decreased (ADEQUATE) Prothrombin Time 16.2 SEC (11.7-14.0) Prothromb Time International Ratio 1.3 (0.8-1.1) Sodium Level 136 mmol/L (136-145) Potassium Level 3.6 mmol/L (3.5-5.1) Chloride Level 101 mmol/L (98-107) Carbon Dioxide Level 25 mmol/L (21-32) Anion Gap 10 (6-14) Blood Urea Nitrogen 9 mg/dL (7-20) Creatinine 0.7 mg/dL (0.6-1.0) Estimated GFR (Cockcroft-Gault) 85.1 BUN/Creatinine Ratio 13 (6-20) Glucose Level 133 mg/dL (70-99) Lactic Acid Level 2.5 mmol/L (0.4-2.0) 2.0 mmol/L (0.4-2.0) Calcium Level 8.5 mg/dL (8.5-10.1) Total Bilirubin 2.0 mg/dL (0.2-1.0) Aspartate Amino Transf (AST/SGOT) 79 U/L (15-37) Alanine Aminotransferase (ALT/SGPT) 63 U/L (14-59) Alkaline Phosphatase 184 U/L (46-116) Troponin I Quantitative < 0.017 ng/mL (0.000-0.055) MI-Dyo-E-Type Natriuretic Peptide 174 pg/mL (0-124) Total Protein 8.1 g/dL (6.4-8.2) Albumin 2.6 g/dL (3.4-5.0) Albumin/Globulin Ratio 0.5 (1.0-1.7) Urine Collection Type Void Urine Color Yellow Urine Clarity Clear Urine pH 6.5 Urine Specific [place] 1.010 Urine Protein Negative mg/dL (NEG-TRACE) Urine Glucose (UA) Negative mg/dL (NEG) Urine Ketones (Stick) Negative mg/dL (NEG) Urine Blood Negative (NEG) Urine Nitrite Negative (NEG) Urine Bilirubin Negative (NEG) Urine Urobilinogen Dipstick 2.0 mg/dL (0.2 mg/dL) Urine Leukocyte Esterase Negative (NEG) Urine RBC Occ /HPF (0-2) Urine WBC 1-4 /HPF (0-4) Urine Squamous Epithelial Cells Few /LPF Urine Renal Epithelial Cells Few /LPF Urine Bacteria Moderate /HPF (0-FEW) Urine Mucus Mod /LPF Test 06/15/19 11:54 O2 Saturation 92 % (92-99) Arterial Blood pH 7.50 (7.35-7.45) Arterial Blood pCO2 at Patient Temp 30 mmHg (35-46) Arterial Blood pO2 at Patient Temp 60 mmHg (65-108) Arterial Blood HCO3 23 mmol/L (21-28) Arterial Blood Base Excess 0 mmol/L (-3-3) FiO2 21 Laboratory Tests Test 06/15/19 04:50 06/15/19 05:05 06/15/19 07:01 06/15/19 08:53 Influenza Type A Antigen Negative (NEGATIVE) Influenza Type B Antigen Negative (NEGATIVE) White Blood Count 17.0 x10^3/uL (4.0-11.0) Red Blood Count 3.85 x10^6/uL (3.50-5.40) Hemoglobin 13.0 g/dL (12.0-15.5) Hematocrit 37.8 % (36.0-47.0) Mean Corpuscular Volume 98 fL (79-100) Mean Corpuscular Hemoglobin 34 pg (25-35) Mean Corpuscular Hemoglobin Concent 35 g/dL (31-37) Red Cell Distribution Width 14.4 % (11.5-14.5) Platelet Count 73 x10^3/uL (140-400) Neutrophils (%) (Auto) 85 % (31-73) Lymphocytes (%) (Auto) 3 % (24-48) Monocytes (%) (Auto) 11 % (0-9) Eosinophils (%) (Auto) 0 % (0-3) Basophils (%) (Auto) 0 % (0-3) Neutrophils # (Auto) 14.5 x10^3/uL (1.8-7.7) Lymphocytes # (Auto) 0.6 x10^3/uL (1.0-4.8) Monocytes # (Auto) 1.8 x10^3/uL (0.0-1.1) Eosinophils # (Auto) 0.1 x10^3/uL (0.0-0.7) Basophils # (Auto) 0.0 x10^3/uL (0.0-0.2) Segmented Neutrophils % 66 % (35-66) Band Neutrophils % 15 % (0-9) Lymphocytes % 6 % (24-48) Monocytes % 10 % (0-10) Eosinophils % 2 % (0-5) Myelocytes % 1 % (0-0) Platelet Estimate Decreased (ADEQUATE) Prothrombin Time 16.2 SEC (11.7-14.0) Prothromb Time International Ratio 1.3 (0.8-1.1) Sodium Level 136 mmol/L (136-145) Potassium Level 3.6 mmol/L (3.5-5.1) Chloride Level 101 mmol/L (98-107) Carbon Dioxide Level 25 mmol/L (21-32) Anion Gap 10 (6-14) Blood Urea Nitrogen 9 mg/dL (7-20) Creatinine 0.7 mg/dL (0.6-1.0) Estimated GFR (Cockcroft-Gault) 85.1 BUN/Creatinine Ratio 13 (6-20) Glucose Level 133 mg/dL (70-99) Lactic Acid Level 2.5 mmol/L (0.4-2.0) 2.0 mmol/L (0.4-2.0) Calcium Level 8.5 mg/dL (8.5-10.1) Total Bilirubin 2.0 mg/dL (0.2-1.0) Aspartate Amino Transf (AST/SGOT) 79 U/L (15-37) Alanine Aminotransferase (ALT/SGPT) 63 U/L (14-59) Alkaline Phosphatase 184 U/L (46-116) Troponin I Quantitative < 0.017 ng/mL (0.000-0.055) HR-Cvl-I-Type Natriuretic Peptide 174 pg/mL (0-124) Total Protein 8.1 g/dL (6.4-8.2) Albumin 2.6 g/dL (3.4-5.0) Albumin/Globulin Ratio 0.5 (1.0-1.7) Urine Collection Type Void Urine Color Yellow Urine Clarity Clear Urine pH 6.5 Urine Specific [place] 1.010 Urine Protein Negative mg/dL (NEG-TRACE) Urine Glucose (UA) Negative mg/dL (NEG) Urine Ketones (Stick) Negative mg/dL (NEG) Urine Blood Negative (NEG) Urine Nitrite Negative (NEG) Urine Bilirubin Negative (NEG) Urine Urobilinogen Dipstick 2.0 mg/dL (0.2 mg/dL) Urine Leukocyte Esterase Negative (NEG) Urine RBC Occ /HPF (0-2) Urine WBC 1-4 /HPF (0-4) Urine Squamous Epithelial Cells Few /LPF Urine Renal Epithelial Cells Few /LPF Urine Bacteria Moderate /HPF (0-FEW) Urine Mucus Mod /LPF Test 06/15/19 11:54 O2 Saturation 92 % (92-99) Arterial Blood pH 7.50 (7.35-7.45) Arterial Blood pCO2 at Patient Temp 30 mmHg (35-46) Arterial Blood pO2 at Patient Temp 60 mmHg (65-108) Arterial Blood HCO3 23 mmol/L (21-28) Arterial Blood Base Excess 0 mmol/L (-3-3) FiO2 21 Impression . FULL NOTE DICTATED THANKS LISSA REGAN MD Jun 15, 2019 17:13
[2019-06-15 19:10] VITALS: BP 94/50
--- NOTE | 2019-06-15 20:27 | CONS ---
DATE OF CONSULTATION: 06/15/2019 ATTENDING PHYSICIAN: Dr. Lowe. CONSULTING PHYSICIAN: Dr. Regan. REASON FOR CONSULTATION: The patient is seen in pulmonary consultation at the request of Dr. Lowe for increasing shortness of breath, wheezing. HISTORY OF PRESENT ILLNESS: The patient is a 63-year-old that has been smoking most of her adult life, has underlying COPD. She has been seen in [facility] in the past. She was prescribed Combivent. She is currently out of her medication. She wears no oxygen at home. She smokes. She is coughing up some mucus. She presented with the above complaints. She was also having some abdominal discomfort, GI evaluated the patient. She underwent CT abdomen and pelvis, which showed some ascites. There was left lower lobe opacity. She is currently on antibiotics for leukocytosis, thrombocytopenia and lactic acidosis. She also has evidence of cholelithiasis. Her labs revealed influenza screen, which was negative. Her albumin was low. Arterial blood gas; pH of 7.50, PaCO2 of 30, pO2 of 60 on room air. White count was 17,000. PAST MEDICAL HISTORY: Apparently, she was told she has a hepatic cancer in 2015 at , never followed up. There is also a history of hyperlipidemia, COPD, tobacco dependent, gastroesophageal reflux. PAST SURGICAL HISTORY: None recent major surgeries. FAMILY HISTORY: Hypertension. SOCIAL HISTORY: She smokes less than 1 pack of cigarettes per day. ALLERGIES: TETRACYCLINE. REVIEW OF SYSTEMS: CONSTITUTIONAL: No fever or chills. EYES: No change in visual acuity. HENT: No nasal congestion or sore throat. PULMONARY: As indicated above. CARDIOVASCULAR: As indicated above. GASTROINTESTINAL: As indicated above. GENITOURINARY: No dysuria or frequency. MUSCULOSKELETAL: No localized muscle aches or joint pains. SKIN: No new skin rashes. PHYSICAL EXAMINATION: GENERAL: The patient appeared to be much older than stated age. Her BMI was 26. VITAL SIGNS: She is currently on 2 L of oxygen supplementation, saturation 97%. HEENT: Eyes, the sclerae were nonicteric. NECK: Jugular venous distention was not elevated. No lymphadenopathy. CHEST: Full expansion. LUNGS: Scattered rhonchi and scattered wheezes. CARDIOVASCULAR: Regular rate and rhythm with S1, S2, no S3. ABDOMEN: Soft, nontender, slightly distended. EXTREMITIES: No clubbing, cyanosis, no pitting edema. NEUROLOGIC: The patient was awake, alert, following commands. A detailed neuro exam was not performed. LABORATORY DATA: Reviewed as indicated above. White count was elevated. Electrolytes were noted. AST and ALT were elevated. Alkaline phosphatase was elevated. BNP was elevated. Albumin was low. Arterial blood gases indicated above. UA was noted. IMPRESSION: 1. Acute exacerbation of chronic obstructive pulmonary disease. 2. Acute hypoxemic respiratory failure secondary to above. 3. Leukocytosis. 4. Ascites and splenomegaly. The patient reports hepatitis C and cirrhosis. Apparently, she was also told that she had liver cancer, had previous paracentesis. 5. Cholelithiasis. 6. ____ revealed left lower lobe interstitial thickening. 7. Ascites. PLAN: 1. Recommend to continue current IV antibiotics. 2. CT. 3. Follow GI input. 4. We will obtain CT chest to review and make further recommendations. 5. The patient instructed on the importance of discontinuing tobacco use. I do appreciate the privilege in sharing in the patient's care. LISSA REGAN MD DR: DAVY/brian JOB#: [id number] / [id number]
[2019-06-15 22:28] VITALS: BP_SYST 89; BP_SYST 94; BP_DIAS 50; BP_DIAS 53
[2019-06-16] VITALS (18 sets, daily range): BP systolic 87–140; BP diastolic 48–71
[2019-06-16] MEDS: PIPERACILLIN/TAZOBACTAM 3.375 GM in IV NORMAL SALINE 50ML 50 ML IV SCH ×5 (00:16→23:42)
--- NOTE | 2019-06-16 00:16 | RAD ---
CT CHEST WO CONTRAST History: Left lower lobe infiltrate Technique: Noncontrast CT of the chest was performed. Coronal and sagittal reconstructions were performed. Exposure: One or more of the following individualized dose reduction techniques were utilized for this examination: 1. Automated exposure control 2. Adjustment of the mA and/or kV according to patient size 3. Use of iterative reconstruction technique. Comparison: Chest x-ray June 15, 2019 Findings: Chest: No pathologic axillar, mediastinal or hilar adenopathy. Calcified left hilar lymph nodes along with calcified nodules, likely prior granulous disease. Coronary artery calcification. Left lower lobe reticular and patchy opacities. Bilateral upper lobe groundglass opacities. Right lower lobe ground glass opacities. 2 mm left upper lobe pulmonary nodule (series 2 image #21). Recommend attention on follow-up. Upper abdomen: Upper abdominal ascites. Cholelithiasis. Contrast noted within the right renal collecting system. Splenomegaly. Nodular morphology of the liver. Upper abdominal varices. Bones: No pathologic osseous lesions. Impression: 1. Left lower lobe reticular and patchy opacities with scattered bilateral groundglass opacities, may represent infectious or inflammatory process. Recommend follow-up to ensure resolution. 2. Upper abdominal ascites with nodular morphology of the liver, splenomegaly and varices. 3. Cholelithiasis. Electronically signed by: Ritchie Aguirre DO (06/16/2019 12:14 AM) [facility]
[2019-06-16 04:04] LABS: BASO % 1 % (0-3); EOS # 0.1 x10^3/uL (0.0-0.7); EOS % 1 % (0-3); HEMATOCRIT 30.1 % (36.0-47.0); HEMOGLOBIN 10.4 g/dL (12.0-15.5); LYMPH # 0.7 x10^3/uL (1.0-4.8); LYMPH % 11 % (24-48); MEAN CORPUSCULAR HEMOGLOBIN 34 pg (25-35); MEAN CORPUSCULAR HGB CONC 35 g/dL (31-37); MEAN CORPUSCULAR VOLUME 99 fL (79-100); MONO # 0.9 x10^3/uL (0.0-1.1); MONO % 14 % (0-9); NEUT # 4.8 x10^3/uL (1.8-7.7); NEUT % 74 % (31-73); PLATELET COUNT 49 x10^3/uL (140-400); RED BLOOD COUNT 3.04 x10^6/uL (3.50-5.40); RED CELL DISTRIBUTION WIDTH 14.2 % (11.5-14.5); WHITE BLOOD COUNT 6.6 x10^3/uL (4.0-11.0)
[2019-06-16] MEDS: IPRATRPIUM/ALBUTEROL 0.5/2.5MG 3 ML NEBU. NEB SCH ×5 (04:06→19:40)
[2019-06-16 04:27] LABS: ALBUMIN 1.9 g/dL (3.4-5.0); ALBUMIN/GLOBULIN RATIO 0.4 (1.0-1.7); CALCIUM 7.4 mg/dL (8.5-10.1); CREATININE 0.8 mg/dL (0.6-1.0); GFR 72.9; POTASSIUM 3.4 mmol/L (3.5-5.1); TOTAL PROTEIN 6.5 g/dL (6.4-8.2)
[2019-06-16 04:38] LABS: PLT ESTIMATE DECREASED (ADEQUATE)
[2019-06-16 04:39] LABS: ANISOCYTOSIS SLIGHT
[2019-06-16] MEDS: IV NORMAL SALINE 1000ML BAG 1,000 ML IV SCH ×2 (08:58→21:22)
[2019-06-16] MEDS ORDERED: ENOXAPARIN 40 MG/0.4 ML SYRINGE. SQ SCH (09:00)
--- NOTE | 2019-06-16 09:34 | PDOC ---
Subjective: Subjective: Wants something to eat, wants to know if her cough will get better, thinks "belly is pretty full." Objective: Objective: BP lowish. Vital Signs: Vital Signs Date Time Temp Pulse Resp B/P (MAP) Pulse Ox O2 Delivery O2 Flow Rate FiO2 06/16/19 07:40 94 Room Air 06/16/19 07:00 97.8 66 18 90/51 (64) 97.8 06/15/19 07:02 2.0 Labs: Laboratory Tests Test 06/15/19 11:54 06/15/19 16:10 06/16/19 03:10 O2 Saturation 92 % Arterial Blood pH 7.50 Arterial Blood pCO2 at Patient Temp 30 mmHg Arterial Blood pO2 at Patient Temp 60 mmHg Arterial Blood HCO3 23 mmol/L Arterial Blood Base Excess 0 mmol/L FiO2 21 Tumor Marker Alpha Fetoprotein 5.5 ng/mL White Blood Count 6.6 x10^3/uL Red Blood Count 3.04 x10^6/uL Hemoglobin 10.4 g/dL Hematocrit 30.1 % Mean Corpuscular Volume 99 fL Mean Corpuscular Hemoglobin 34 pg Mean Corpuscular Hemoglobin Concent 35 g/dL Red Cell Distribution Width 14.2 % Platelet Count 49 x10^3/uL Neutrophils (%) (Auto) 74 % Lymphocytes (%) (Auto) 11 % Monocytes (%) (Auto) 14 % Eosinophils (%) (Auto) 1 % Basophils (%) (Auto) 1 % Neutrophils # (Auto) 4.8 x10^3/uL Lymphocytes # (Auto) 0.7 x10^3/uL Monocytes # (Auto) 0.9 x10^3/uL Eosinophils # (Auto) 0.1 x10^3/uL Basophils # (Auto) 0.0 x10^3/uL Platelet Estimate Decreased Anisocytosis Slight Sodium Level 141 mmol/L Potassium Level 3.4 mmol/L Chloride Level 109 mmol/L Carbon Dioxide Level 25 mmol/L Anion Gap 7 Blood Urea Nitrogen 9 mg/dL Creatinine 0.8 mg/dL Estimated GFR (Cockcroft-Gault) 72.9 BUN/Creatinine Ratio 11 Glucose Level 86 mg/dL Calcium Level 7.4 mg/dL Total Bilirubin 1.0 mg/dL Aspartate Amino Transf (AST/SGOT) 47 U/L Alanine Aminotransferase (ALT/SGPT) 38 U/L Alkaline Phosphatase 149 U/L Total Protein 6.5 g/dL Albumin 1.9 g/dL Albumin/Globulin Ratio 0.4 Imaging: CT A/P 06/15 Impression: Nodular contour of the liver likely representing cirrhosis with associated portal hypertension and splenomegaly. Esophageal varices and splenic arteries. No suspicious hepatic mass. Main portal and left portal venous filling defects of concern for thrombus noted. Moderate to large amount of ascites. ascites. Cholelithiasis. Minimal bibasilar atelectasis greater on the left. Chest CT Impression: 1. Left lower lobe reticular and patchy opacities with scattered bilateral groundglass opacities, may represent infectious or inflammatory process. Recommend follow-up to ensure resolution. 2. Upper abdominal ascites with nodular morphology of the liver, splenomegaly and varices. 3. Cholelithiasis. Echocardiogram <Conclusion> The left ventricular systolic function is normal and the ejection fraction is within normal range. The Ejection Fraction is 65-70%. There is normal LV segmental wall motion. Doppler and Color Flow revealed mild tricuspid regurgitation with an estimated PAP of 35 mmHg. PE: GEN: NAD LUNGS: coughing HEART: RRR ABD: distended/ascites NEURO/PSYCH: A & O 3 A/P: COPD exacerbation Cirrhosis w/ ascites - reports h/o Hep C (confirmation pending) and liver cancer (AFP normal) Thrombocytopenia, anemia -- Await paracentesis, fluid studies, and hepatitis panel. ?borderline plt count for paracentesis Check iron profile. SARA ESPINOZA Jun 16, 2019 09:34
[2019-06-16] MEDS: PANTOPRAZOLE 40 MG TABLET.DR. PO SCH (10:17)
[2019-06-16 11:23] LABS: BF CLARITY HAZY; BF COLOR YELLOW; BF MON % 53 %; BF OTHER % 5 %; BF PMN % 42 %; BF RBC COUNT 1754 /cmm (Not Established); BF SOURCE ASCITES; BF WBC COUNT 240 /cmm (Not Established)
--- NOTE | 2019-06-16 11:36 | PDOC ---
[employer] PROGRESS NOTE Chief Complaint Chief Complaint Cough and shortness of breath for the last couple of weeks History of Present Illness History of Present Illness 06/16/19 Pt seen and examined while laying in bed. Patient care discussed with RN. Vitals/I&O Vitals/I&O: Vital Signs Date Time Temp Pulse Resp B/P (MAP) Pulse Ox O2 Delivery O2 Flow Rate FiO2 06/16/19 10:02 95/71 (79) 95 2.0 06/16/19 09:55 64 Room Air 06/16/19 07:00 97.8 18 97.8 I & O 06/15/19 06/15/19 06/16/19 15:00 23:00 07:00 Intake Total 1000 ml 500 ml 1450 ml Balance 1000 ml 500 ml 1450 ml Physical Exam General: Alert, Cooperative, No acute distress Abdomen: Soft, Other (mild ascites ) Skin: No significant lesion Labs Labs: Laboratory Tests Test 06/15/19 11:54 06/15/19 16:10 06/16/19 03:10 06/16/19 09:48 O2 Saturation 92 % (92-99) Arterial Blood pH 7.50 (7.35-7.45) Arterial Blood pCO2 at Patient Temp 30 mmHg (35-46) Arterial Blood pO2 at Patient Temp 60 mmHg (65-108) Arterial Blood HCO3 23 mmol/L (21-28) Arterial Blood Base Excess 0 mmol/L (-3-3) FiO2 21 Tumor Marker Alpha Fetoprotein 5.5 ng/mL (0.0-8.3) White Blood Count 6.6 x10^3/uL (4.0-11.0) Red Blood Count 3.04 x10^6/uL (3.50-5.40) Hemoglobin 10.4 g/dL (12.0-15.5) Hematocrit 30.1 % (36.0-47.0) Mean Corpuscular Volume 99 fL (79-100) Mean Corpuscular Hemoglobin 34 pg (25-35) Mean Corpuscular Hemoglobin Concent 35 g/dL (31-37) Red Cell Distribution Width 14.2 % (11.5-14.5) Platelet Count 49 x10^3/uL (140-400) Neutrophils (%) (Auto) 74 % (31-73) Lymphocytes (%) (Auto) 11 % (24-48) Monocytes (%) (Auto) 14 % (0-9) Eosinophils (%) (Auto) 1 % (0-3) Basophils (%) (Auto) 1 % (0-3) Neutrophils # (Auto) 4.8 x10^3/uL (1.8-7.7) Lymphocytes # (Auto) 0.7 x10^3/uL (1.0-4.8) Monocytes # (Auto) 0.9 x10^3/uL (0.0-1.1) Eosinophils # (Auto) 0.1 x10^3/uL (0.0-0.7) Basophils # (Auto) 0.0 x10^3/uL (0.0-0.2) Platelet Estimate Decreased (ADEQUATE) Anisocytosis Slight Sodium Level 141 mmol/L (136-145) Potassium Level 3.4 mmol/L (3.5-5.1) Chloride Level 109 mmol/L (98-107) Carbon Dioxide Level 25 mmol/L (21-32) Anion Gap 7 (6-14) Blood Urea Nitrogen 9 mg/dL (7-20) Creatinine 0.8 mg/dL (0.6-1.0) Estimated GFR (Cockcroft-Gault) 72.9 BUN/Creatinine Ratio 11 (6-20) Glucose Level 86 mg/dL (70-99) Calcium Level 7.4 mg/dL (8.5-10.1) Iron Level 34 ug/dL (50-170) Total Iron Binding Capacity 175 ug/dL (250-450) Iron Saturation 19 % (15-34) Total Bilirubin 1.0 mg/dL (0.2-1.0) Aspartate Amino Transf (AST/SGOT) 47 U/L (15-37) Alanine Aminotransferase (ALT/SGPT) 38 U/L (14-59) Alkaline Phosphatase 149 U/L (46-116) Total Protein 6.5 g/dL (6.4-8.2) Albumin 1.9 g/dL (3.4-5.0) Albumin/Globulin Ratio 0.4 (1.0-1.7) Body Fluid Source Ascites Body Fluid Color Yellow Body Fluid Clarity Hazy Body Fluid Nucleated Cells 240 /cmm (Not Established) Body Fluid Mononuclear WBCs (%) 53 % Body Fluid Polymorphonuclear Cells 42 % Body Fluid Total RBCs Counted 1754 /cmm (Not Established) Body Fluid Other Cells (%) 5 % Assessment and Plan Assessmemt and Plan Problems Medical Problems: (1) CAP (community acquired pneumonia) Status: Acute Plan 1. Cardiac monitoring 2. IV antibiotics 3. Duonebs 4. DVT prophylaxis 5. To have paracentesis 6. PTOT Full code Comment Review of Relevant I have reviewed the following items ginger (where applicable) has been applied. Medications: Current Medications Medications (Trade) Dose Ordered Sig/Candis Route PRN Reason Start Time Stop Time Status Last Admin Dose Admin Azithromycin 500 mg/Sodium Chloride 250 ml @ 250 mls/hr Q24H IV 06/15/19 12:00 06/15/19 15:24 Piperacillin Sod/ Tazobactam Sod 3.375 gm/Sodium Chloride 50 ml @ 100 mls/hr Q6HRS IV 06/15/19 12:00 06/16/19 06:35 Influenza Virus Vaccine Quadrival (Afluria Quad 2019-20 (3yr Up) Syringe) 0.5 ml ONCE ONCE VAX IM 06/15/19 11:45 06/15/19 11:46 DC 06/15/19 15:27 Sodium Chloride 1,000 ml @ 100 mls/hr Q10H IV 06/15/19 12:57 06/16/19 08:58 Albuterol/ Ipratropium (Duoneb) 3 ml Q4H NEB 06/15/19 13:00 06/16/19 07:40 Pantoprazole Sodium (Protonix) 40 mg DAILYAC PO 06/16/19 07:30 06/16/19 10:17 Iohexol (Omnipaque 300 Mg/ml) 75 ml 1X ONCE IV 06/15/19 13:30 06/15/19 13:31 DC 06/15/19 13:58 MERVAT CHRISTIANSON III DO Jun 16, 2019 11:36
[2019-06-16] MEDS: AZITHROMYCIN 500 MG in IV NORMAL SALINE 250ML 250 ML IV SCH (12:48)
--- NOTE | 2019-06-16 13:32 | PDOC ---
PULMONARY PROGRESS NOTES Subjective feels better after paracentesis Vitals Vital Signs Date Time Temp Pulse Resp B/P (MAP) Pulse Ox O2 Delivery O2 Flow Rate FiO2 06/16/19 11:35 95 Room Air 06/16/19 10:02 95/71 (79) 2.0 06/16/19 09:55 64 06/16/19 07:00 97.8 18 97.8 ROS: No Chest Pain General: Alert, No acute distress Lungs: Clear Cardiovascular: S1 Abdomen: Soft, Non-tender Neuro Exam: Alert Extremities: No Edema Skin: Warm Labs Laboratory Tests Test 06/15/19 04:50 06/15/19 05:05 06/15/19 07:01 06/15/19 08:53 Influenza Type A Antigen Negative (NEGATIVE) Influenza Type B Antigen Negative (NEGATIVE) White Blood Count 17.0 x10^3/uL (4.0-11.0) Red Blood Count 3.85 x10^6/uL (3.50-5.40) Hemoglobin 13.0 g/dL (12.0-15.5) Hematocrit 37.8 % (36.0-47.0) Mean Corpuscular Volume 98 fL (79-100) Mean Corpuscular Hemoglobin 34 pg (25-35) Mean Corpuscular Hemoglobin Concent 35 g/dL (31-37) Red Cell Distribution Width 14.4 % (11.5-14.5) Platelet Count 73 x10^3/uL (140-400) Neutrophils (%) (Auto) 85 % (31-73) Lymphocytes (%) (Auto) 3 % (24-48) Monocytes (%) (Auto) 11 % (0-9) Eosinophils (%) (Auto) 0 % (0-3) Basophils (%) (Auto) 0 % (0-3) Neutrophils # (Auto) 14.5 x10^3/uL (1.8-7.7) Lymphocytes # (Auto) 0.6 x10^3/uL (1.0-4.8) Monocytes # (Auto) 1.8 x10^3/uL (0.0-1.1) Eosinophils # (Auto) 0.1 x10^3/uL (0.0-0.7) Basophils # (Auto) 0.0 x10^3/uL (0.0-0.2) Segmented Neutrophils % 66 % (35-66) Band Neutrophils % 15 % (0-9) Lymphocytes % 6 % (24-48) Monocytes % 10 % (0-10) Eosinophils % 2 % (0-5) Myelocytes % 1 % (0-0) Platelet Estimate Decreased (ADEQUATE) Prothrombin Time 16.2 SEC (11.7-14.0) Prothromb Time International Ratio 1.3 (0.8-1.1) Sodium Level 136 mmol/L (136-145) Potassium Level 3.6 mmol/L (3.5-5.1) Chloride Level 101 mmol/L (98-107) Carbon Dioxide Level 25 mmol/L (21-32) Anion Gap 10 (6-14) Blood Urea Nitrogen 9 mg/dL (7-20) Creatinine 0.7 mg/dL (0.6-1.0) Estimated GFR (Cockcroft-Gault) 85.1 BUN/Creatinine Ratio 13 (6-20) Glucose Level 133 mg/dL (70-99) Lactic Acid Level 2.5 mmol/L (0.4-2.0) 2.0 mmol/L (0.4-2.0) Calcium Level 8.5 mg/dL (8.5-10.1) Total Bilirubin 2.0 mg/dL (0.2-1.0) Aspartate Amino Transf (AST/SGOT) 79 U/L (15-37) Alanine Aminotransferase (ALT/SGPT) 63 U/L (14-59) Alkaline Phosphatase 184 U/L (46-116) Troponin I Quantitative < 0.017 ng/mL (0.000-0.055) AW-Fgk-P-Type Natriuretic Peptide 174 pg/mL (0-124) Total Protein 8.1 g/dL (6.4-8.2) Albumin 2.6 g/dL (3.4-5.0) Albumin/Globulin Ratio 0.5 (1.0-1.7) Urine Collection Type Void Urine Color Yellow Urine Clarity Clear Urine pH 6.5 Urine Specific [place] 1.010 Urine Protein Negative mg/dL (NEG-TRACE) Urine Glucose (UA) Negative mg/dL (NEG) Urine Ketones (Stick) Negative mg/dL (NEG) Urine Blood Negative (NEG) Urine Nitrite Negative (NEG) Urine Bilirubin Negative (NEG) Urine Urobilinogen Dipstick 2.0 mg/dL (0.2 mg/dL) Urine Leukocyte Esterase Negative (NEG) Urine RBC Occ /HPF (0-2) Urine WBC 1-4 /HPF (0-4) Urine Squamous Epithelial Cells Few /LPF Urine Renal Epithelial Cells Few /LPF Urine Bacteria Moderate /HPF (0-FEW) Urine Mucus Mod /LPF Test 06/15/19 11:54 06/15/19 16:10 06/16/19 03:10 06/16/19 09:48 O2 Saturation 92 % (92-99) Arterial Blood pH 7.50 (7.35-7.45) Arterial Blood pCO2 at Patient Temp 30 mmHg (35-46) Arterial Blood pO2 at Patient Temp 60 mmHg (65-108) Arterial Blood HCO3 23 mmol/L (21-28) Arterial Blood Base Excess 0 mmol/L (-3-3) FiO2 21 Tumor Marker Alpha Fetoprotein 5.5 ng/mL (0.0-8.3) White Blood Count 6.6 x10^3/uL (4.0-11.0) Red Blood Count 3.04 x10^6/uL (3.50-5.40) Hemoglobin 10.4 g/dL (12.0-15.5) Hematocrit 30.1 % (36.0-47.0) Mean Corpuscular Volume 99 fL (79-100) Mean Corpuscular Hemoglobin 34 pg (25-35) Mean Corpuscular Hemoglobin Concent 35 g/dL (31-37) Red Cell Distribution Width 14.2 % (11.5-14.5) Platelet Count 49 x10^3/uL (140-400) Neutrophils (%) (Auto) 74 % (31-73) Lymphocytes (%) (Auto) 11 % (24-48) Monocytes (%) (Auto) 14 % (0-9) Eosinophils (%) (Auto) 1 % (0-3) Basophils (%) (Auto) 1 % (0-3) Neutrophils # (Auto) 4.8 x10^3/uL (1.8-7.7) Lymphocytes # (Auto) 0.7 x10^3/uL (1.0-4.8) Monocytes # (Auto) 0.9 x10^3/uL (0.0-1.1) Eosinophils # (Auto) 0.1 x10^3/uL (0.0-0.7) Basophils # (Auto) 0.0 x10^3/uL (0.0-0.2) Platelet Estimate Decreased (ADEQUATE) Anisocytosis Slight Sodium Level 141 mmol/L (136-145) Potassium Level 3.4 mmol/L (3.5-5.1) Chloride Level 109 mmol/L (98-107) Carbon Dioxide Level 25 mmol/L (21-32) Anion Gap 7 (6-14) Blood Urea Nitrogen 9 mg/dL (7-20) Creatinine 0.8 mg/dL (0.6-1.0) Estimated GFR (Cockcroft-Gault) 72.9 BUN/Creatinine Ratio 11 (6-20) Glucose Level 86 mg/dL (70-99) Calcium Level 7.4 mg/dL (8.5-10.1) Iron Level 34 ug/dL (50-170) Total Iron Binding Capacity 175 ug/dL (250-450) Iron Saturation 19 % (15-34) Total Bilirubin 1.0 mg/dL (0.2-1.0) Aspartate Amino Transf (AST/SGOT) 47 U/L (15-37) Alanine Aminotransferase (ALT/SGPT) 38 U/L (14-59) Alkaline Phosphatase 149 U/L (46-116) Total Protein 6.5 g/dL (6.4-8.2) Albumin 1.9 g/dL (3.4-5.0) Albumin/Globulin Ratio 0.4 (1.0-1.7) Body Fluid Source Ascites Body Fluid Color Yellow Body Fluid Clarity Hazy Body Fluid Nucleated Cells 240 /cmm (Not Established) Body Fluid Mononuclear WBCs (%) 53 % Body Fluid Polymorphonuclear Cells 42 % Body Fluid Total RBCs Counted 1754 /cmm (Not Established) Body Fluid Other Cells (%) 5 % Laboratory Tests Test 06/15/19 16:10 06/16/19 03:10 06/16/19 09:48 Tumor Marker Alpha Fetoprotein 5.5 ng/mL (0.0-8.3) White Blood Count 6.6 x10^3/uL (4.0-11.0) Red Blood Count 3.04 x10^6/uL (3.50-5.40) Hemoglobin 10.4 g/dL (12.0-15.5) Hematocrit 30.1 % (36.0-47.0) Mean Corpuscular Volume 99 fL (79-100) Mean Corpuscular Hemoglobin 34 pg (25-35) Mean Corpuscular Hemoglobin Concent 35 g/dL (31-37) Red Cell Distribution Width 14.2 % (11.5-14.5) Platelet Count 49 x10^3/uL (140-400) Neutrophils (%) (Auto) 74 % (31-73) Lymphocytes (%) (Auto) 11 % (24-48) Monocytes (%) (Auto) 14 % (0-9) Eosinophils (%) (Auto) 1 % (0-3) Basophils (%) (Auto) 1 % (0-3) Neutrophils # (Auto) 4.8 x10^3/uL (1.8-7.7) Lymphocytes # (Auto) 0.7 x10^3/uL (1.0-4.8) Monocytes # (Auto) 0.9 x10^3/uL (0.0-1.1) Eosinophils # (Auto) 0.1 x10^3/uL (0.0-0.7) Basophils # (Auto) 0.0 x10^3/uL (0.0-0.2) Platelet Estimate Decreased (ADEQUATE) Anisocytosis Slight Sodium Level 141 mmol/L (136-145) Potassium Level 3.4 mmol/L (3.5-5.1) Chloride Level 109 mmol/L (98-107) Carbon Dioxide Level 25 mmol/L (21-32) Anion Gap 7 (6-14) Blood Urea Nitrogen 9 mg/dL (7-20) Creatinine 0.8 mg/dL (0.6-1.0) Estimated GFR (Cockcroft-Gault) 72.9 BUN/Creatinine Ratio 11 (6-20) Glucose Level 86 mg/dL (70-99) Calcium Level 7.4 mg/dL (8.5-10.1) Iron Level 34 ug/dL (50-170) Total Iron Binding Capacity 175 ug/dL (250-450) Iron Saturation 19 % (15-34) Total Bilirubin 1.0 mg/dL (0.2-1.0) Aspartate Amino Transf (AST/SGOT) 47 U/L (15-37) Alanine Aminotransferase (ALT/SGPT) 38 U/L (14-59) Alkaline Phosphatase 149 U/L (46-116) Total Protein 6.5 g/dL (6.4-8.2) Albumin 1.9 g/dL (3.4-5.0) Albumin/Globulin Ratio 0.4 (1.0-1.7) Body Fluid Source Ascites Body Fluid Color Yellow Body Fluid Clarity Hazy Body Fluid Nucleated Cells 240 /cmm (Not Established) Body Fluid Mononuclear WBCs (%) 53 % Body Fluid Polymorphonuclear Cells 42 % Body Fluid Total RBCs Counted 1754 /cmm (Not Established) Body Fluid Other Cells (%) 5 % Impression . 1. Acute exacerbation of chronic obstructive pulmonary disease. 2. Acute hypoxemic respiratory failure secondary to above and ascites 3. Leukocytosis. 4. Ascites and splenomegaly. The patient reports hepatitis C and cirrhosis. Apparently, she was also told that she had liver cancer, had previous paracentesis. 5. Cholelithiasis. 6. Abnormal ct chest with patchy GG pneumonitis and LLL pneumonia 7. Ascites. Plan . 1. Recommend to continue current IV antibiotics. 2. CT chest reviewed 3. Follow GI input. 4. clinically better 5. The patient instructed on the importance of discontinuing tobacco use. I do appreciate the privilege in sharing in the patient's care. JONN RAM MD Jun 16, 2019 13:32
--- NOTE | 2019-06-16 13:55 | RAD ---
Ultrasound-guided paracentesis 06/16/2019 11:51 AM Procedure: The risks and benefits of the procedure were discussed the patient. Informed consent was obtained. A timeout procedure was performed. Sonographic evaluation of the abdomen was performed demonstrating ascites . The right lower quadrant was prepped and draped using maximum sterile barrier technique. 1% lidocaine without epinephrine was administered for local anesthesia. Real-time ultrasonographic guidance was used in passing a 5 [place] catheter into the fluid collection. 1.9 L of serous ascites was removed. Samples were sent to pathology for further evaluation per ordering physician request. The catheter was removed and pressure held to achieve hemostasis. A sterile dressing was applied. Impression: Successful ultrasound-guided paracentesis
[2019-06-17] MEDS: IPRATRPIUM/ALBUTEROL 0.5/2.5MG 3 ML NEBU. NEB SCH ×7 (00:09→23:20)
[2019-06-17 03:00] VITALS: BP 110/53
[2019-06-17] MEDS: IV NORMAL SALINE 1000ML BAG 1,000 ML IV SCH ×2 (04:57→14:57)
[2019-06-17] MEDS: PIPERACILLIN/TAZOBACTAM 3.375 GM in IV NORMAL SALINE 50ML 50 ML IV SCH ×4 (05:40→23:30)
[2019-06-17 06:10] LABS: CALCIUM 7.5 mg/dL (8.5-10.1); CREATININE 0.9 mg/dL (0.6-1.0); GFR 63.7; POTASSIUM 3.9 mmol/L (3.5-5.1)
[2019-06-17 07:00] VITALS: BP 101/58
[2019-06-17] MEDS: PANTOPRAZOLE 40 MG TABLET.DR. PO SCH (08:37)
[2019-06-17] MEDS: SPIRONOLACTONE 25 MG TABLET PO SCH (08:37)
--- NOTE | 2019-06-17 10:45 | PDOC ---
Subjective: Subjective: Tells me her breathing is not any better but thinks it's related to her abdomen. Objective: Objective: Nurse says plans to DC per primary. Vital Signs: Vital Signs Date Time Temp Pulse Resp B/P (MAP) Pulse Ox O2 Delivery O2 Flow Rate FiO2 06/17/19 08:17 100 Room Air 06/17/19 07:00 97.6 66 18 101/58 (72) 97.6 06/16/19 15:00 2.0 Labs: Laboratory Tests Test 06/17/19 05:00 Sodium Level 140 mmol/L Potassium Level 3.9 mmol/L Chloride Level 107 mmol/L Carbon Dioxide Level 23 mmol/L Anion Gap 10 Blood Urea Nitrogen 8 mg/dL Creatinine 0.9 mg/dL Estimated GFR (Cockcroft-Gault) 63.7 Glucose Level 83 mg/dL Calcium Level 7.5 mg/dL PE: GEN: NAD LUNGS: coughing HEART: RRR ABD: round - stable NEURO/PSYCH: A & O 3 A/P: COPD exacerbation Cirrhosis ---> +Hep C (PCR pending), normal AFP, s/p paracentesis ACD -- Started diuretic yesterday. Previous recs to consider EGD to screen for varices. DC planned - will d/w Dr. Phan - outpt follow-up will be challenging - she didn't go back to for 5 years. Continue salt-restriction. SARA ESPINOZA Jun 17, 2019 10:45
[2019-06-17 11:00] VITALS: BP 93/54
[2019-06-17] MEDS: AZITHROMYCIN 500 MG in IV NORMAL SALINE 250ML 250 ML IV SCH (11:17)
--- NOTE | 2019-06-17 11:34 | PDOC ---
[employer] PROGRESS NOTE Chief Complaint Chief Complaint Cough and shortness of breath for the last couple of weeks History of Present Illness History of Present Illness 06/17/19 Pt seen and examined. Patient walking around room and sitting up. Patient care discussed with RN. Vitals/I&O Vitals/I&O: Vital Signs Date Time Temp Pulse Resp B/P (MAP) Pulse Ox O2 Delivery O2 Flow Rate FiO2 06/17/19 08:17 100 Room Air 06/17/19 07:00 97.6 66 18 101/58 (72) 97.6 06/16/19 15:00 2.0 I & O 06/16/19 06/16/19 06/17/19 15:00 23:00 07:00 Intake Total 3475 ml Balance 3475 ml Physical Exam Physical Exam: HEENT: Eyes- no scleral icterus appreciated General: Alert, Cooperative, No acute distress Heart: Regular rate, No murmurs Lungs: Wheezing, Other (Visibling coughing. No respiratory distress.) Abdomen: Soft, Other (Distended) Extremities: No clubbing, No cyanosis Labs Labs: Laboratory Tests Test 06/17/19 05:00 Sodium Level 140 mmol/L (136-145) Potassium Level 3.9 mmol/L (3.5-5.1) Chloride Level 107 mmol/L (98-107) Carbon Dioxide Level 23 mmol/L (21-32) Anion Gap 10 (6-14) Blood Urea Nitrogen 8 mg/dL (7-20) Creatinine 0.9 mg/dL (0.6-1.0) Estimated GFR (Cockcroft-Gault) 63.7 Glucose Level 83 mg/dL (70-99) Calcium Level 7.5 mg/dL (8.5-10.1) Review of Systems Review of Systems: Cardiovascular: Denies chest pain GI: Denies abdominal pain, admits abdominal bloating/distension Assessment and Plan Assessmemt and Plan Problems Medical Problems: (1) CAP (community acquired pneumonia) Status: Acute PLAN - Breathing treatment of Combivent. - Prescribed Aldactone for abdominal distension. - Patient to stay, hold off on discharge. Full code Comment Review of Relevant I have reviewed the following items ginger (where applicable) has been applied. Medications: Current Medications Medications (Trade) Dose Ordered Sig/Candis Route PRN Reason Start Time Stop Time Status Last Admin Dose Admin Spironolactone (Aldactone) 25 mg DAILY PO 06/17/19 09:00 06/17/19 08:37 MERVAT CHRISTIANSON III DO Jun 17, 2019 11:34
--- NOTE | 2019-06-17 12:27 | PDOC ---
PULMONARY PROGRESS NOTES Subjective mild dry cough with white sputum s/p paracentesis Vitals Vital Signs Date Time Temp Pulse Resp B/P (MAP) Pulse Ox O2 Delivery O2 Flow Rate FiO2 06/17/19 11:39 98 Room Air 06/17/19 11:00 98.4 65 18 93/54 (67) 98.4 06/16/19 15:00 2.0 ROS: No Chest Pain General: Alert, No acute distress Lungs: Other (decrease bs) Cardiovascular: S1 Abdomen: Soft, Non-tender Neuro Exam: Alert Extremities: No Edema Skin: Warm Labs Laboratory Tests Test 06/15/19 16:10 06/16/19 03:10 06/16/19 09:48 06/17/19 05:00 Tumor Marker Alpha Fetoprotein 5.5 ng/mL (0.0-8.3) White Blood Count 6.6 x10^3/uL (4.0-11.0) Red Blood Count 3.04 x10^6/uL (3.50-5.40) Hemoglobin 10.4 g/dL (12.0-15.5) Hematocrit 30.1 % (36.0-47.0) Mean Corpuscular Volume 99 fL (79-100) Mean Corpuscular Hemoglobin 34 pg (25-35) Mean Corpuscular Hemoglobin Concent 35 g/dL (31-37) Red Cell Distribution Width 14.2 % (11.5-14.5) Platelet Count 49 x10^3/uL (140-400) Neutrophils (%) (Auto) 74 % (31-73) Lymphocytes (%) (Auto) 11 % (24-48) Monocytes (%) (Auto) 14 % (0-9) Eosinophils (%) (Auto) 1 % (0-3) Basophils (%) (Auto) 1 % (0-3) Neutrophils # (Auto) 4.8 x10^3/uL (1.8-7.7) Lymphocytes # (Auto) 0.7 x10^3/uL (1.0-4.8) Monocytes # (Auto) 0.9 x10^3/uL (0.0-1.1) Eosinophils # (Auto) 0.1 x10^3/uL (0.0-0.7) Basophils # (Auto) 0.0 x10^3/uL (0.0-0.2) Platelet Estimate Decreased (ADEQUATE) Anisocytosis Slight Sodium Level 141 mmol/L (136-145) 140 mmol/L (136-145) Potassium Level 3.4 mmol/L (3.5-5.1) 3.9 mmol/L (3.5-5.1) Chloride Level 109 mmol/L (98-107) 107 mmol/L (98-107) Carbon Dioxide Level 25 mmol/L (21-32) 23 mmol/L (21-32) Anion Gap 7 (6-14) 10 (6-14) Blood Urea Nitrogen 9 mg/dL (7-20) 8 mg/dL (7-20) Creatinine 0.8 mg/dL (0.6-1.0) 0.9 mg/dL (0.6-1.0) Estimated GFR (Cockcroft-Gault) 72.9 63.7 BUN/Creatinine Ratio 11 (6-20) Glucose Level 86 mg/dL (70-99) 83 mg/dL (70-99) Calcium Level 7.4 mg/dL (8.5-10.1) 7.5 mg/dL (8.5-10.1) Iron Level 34 ug/dL (50-170) Total Iron Binding Capacity 175 ug/dL (250-450) Iron Saturation 19 % (15-34) Total Bilirubin 1.0 mg/dL (0.2-1.0) Aspartate Amino Transf (AST/SGOT) 47 U/L (15-37) Alanine Aminotransferase (ALT/SGPT) 38 U/L (14-59) Alkaline Phosphatase 149 U/L (46-116) Total Protein 6.5 g/dL (6.4-8.2) Albumin 1.9 g/dL (3.4-5.0) Albumin/Globulin Ratio 0.4 (1.0-1.7) Body Fluid Source Ascites Body Fluid Color Yellow Body Fluid Clarity Hazy Body Fluid Nucleated Cells 240 /cmm (Not Established) Body Fluid Mononuclear WBCs (%) 53 % Body Fluid Polymorphonuclear Cells 42 % Body Fluid Total RBCs Counted 1754 /cmm (Not Established) Body Fluid Other Cells (%) 5 % Laboratory Tests Test 06/17/19 05:00 Sodium Level 140 mmol/L (136-145) Potassium Level 3.9 mmol/L (3.5-5.1) Chloride Level 107 mmol/L (98-107) Carbon Dioxide Level 23 mmol/L (21-32) Anion Gap 10 (6-14) Blood Urea Nitrogen 8 mg/dL (7-20) Creatinine 0.9 mg/dL (0.6-1.0) Estimated GFR (Cockcroft-Gault) 63.7 Glucose Level 83 mg/dL (70-99) Calcium Level 7.5 mg/dL (8.5-10.1) Impression . 1. Acute exacerbation of chronic obstructive pulmonary disease. 2. Acute hypoxemic respiratory failure secondary to above and ascites 3. Leukocytosis. 4. Ascites and splenomegaly. The patient reports hepatitis C and cirrhosis. Apparently, she was also told that she had liver cancer, had previous paracentesis. 5. Cholelithiasis. 6. Abnormal ct chest with patchy GG pneumonitis and LLL pneumonia 7. Ascites. Plan . 1. Recommend to continue current IV antibiotics. 2. CT chest reviewed 3. Follow GI input. 4. clinically better 5. The patient instructed on the importance of discontinuing tobacco use. 6. dc plans per PCP JONN RAM MD Jun 17, 2019 12:27
--- NOTE | 2019-06-17 15:07 | PATHOLOGY ---
Note [facility] Accession Number: [id number] TESTS RESULT FLAG UNITS REF RANGE LAB Clinician Provided Cytology Information No. of containers..01 Other (Miscellaneous) Source: 01 ASCITES DIAGNOSIS: 02 ASCITES NEGATIVE FOR MALIGNANT CELLS. FOALLY REACTIVE MESOTHELIAL CELLS, ACUTE INFLAMMATORY CELLS, AND INFLAMMATORY CELLS PRESENT. THIS INTERPRETATION INCLUDES EVALUATION OF A CELL BLOCK. Signed out by: 02 Telly Lopes MD, Pathologist NPI- [id number] Performed by: Laurie Martinez, Senior Product Engineer ([facility]) Gross description: 01 30ML, YELLOW, CLOUDY /LCS 08/04/1840 0000 Local FLAG LEGEND: L-Low Normal,H-High Normal,LL-Alert Low,HH-Alert High <-Panic Low,>-Panic High,A-Abnormal,AA-Critical Abnormal Performed at: 01 [facility] [address] [place] [address] Bebeto Dillon MD, 02 [facility] [address] [place] [address] Telly Lopes MD, Specimen Comment: A courtesy copy of this report has been sent to [phone], [phone] Specimen Comment: [id number] Specimen Comment: [id number] Specimen Comment: Report sent to / DR CHRISTIANSON Specimen Comment: A duplicate report has been generated due to demographic updates. Performed at: 01 [facility] [address], [place], [place] [id number] MD Bebeto Dillon MD Phone: [phone]
[2019-06-17 15:10] VITALS: BP 112/56
[2019-06-17 19:03] VITALS: BP 105/63
[2019-06-17 23:00] VITALS: BP 83/50
[2019-06-18] MEDS: IV NORMAL SALINE 1000ML BAG 1,000 ML IV SCH (00:57)
[2019-06-18 03:00] VITALS: BP 81/41
[2019-06-18] MEDS: IPRATRPIUM/ALBUTEROL 0.5/2.5MG 3 ML NEBU. NEB SCH ×4 (05:00→16:00)
[2019-06-18 05:17] LABS: CALCIUM 7.4 mg/dL (8.5-10.1); CREATININE 0.8 mg/dL (0.6-1.0); GFR 72.9; POTASSIUM 4.4 mmol/L (3.5-5.1)
[2019-06-18] MEDS: PIPERACILLIN/TAZOBACTAM 3.375 GM in IV NORMAL SALINE 50ML 50 ML IV SCH (06:14)
[2019-06-18 07:00] VITALS: BP 93/47
--- NOTE | 2019-06-18 08:50 | PDOC ---
PROGRESS NOTES Chief Complaint Chief Complaint Cough and shortness of breath for the last couple of weeks Acute exacerbation of chronic obstructive pulmonary disease Acute hypoxemic respiratory failure secondary to above and ascites Leukocytosis. Ascites and splenomegaly. The patient reports hepatitis C and cirrhosis. Cholelithiasis. Abnormal ct chest with patchy GG pneumonitis and LLL pneumonia Ascites. History of Present Illness History of Present Illness Ms Penny is a 63 y/o female w/ PMHx Hep C cirrhosis of the liver admitted for SOB, pneumonia. Had been feeling sick for 2 weeks since returning home from [place] where she stayed in a women's [facility]. Has had abdominal bloating/distention since then as well. H/o similar symptoms 5-6 years ago and was seen at - diagnosed w/ Hep C, cirrhosis, and liver cancer. Says she had paracentesis, was told she had 6 months to live, was given two water pills, and was put on the transplant list. Never followed up. Notes ankle swelling but has been out for 5-6 months. Thinks she got Hep C when she donated plasma in the 1970s. Seen by cardiology, GI, and pulmonology in consultation. S/p 1.9L paracentesis 06/17/19. Denies reflux/heartburn, dysphagia, n/v, abd pain, change in appetite, diarrhea, constipation, hematochezia, or melena. Weight fluctuates. Asking for d/c home today Vitals Vitals Vital Signs Date Time Temp Pulse Resp B/P (MAP) Pulse Ox O2 Delivery O2 Flow Rate FiO2 06/18/19 07:58 98 Room Air 06/18/19 07:00 98.1 76 18 93/47 (62) 98.1 Physical Exam Physical Exam HEENT: Eyes- no scleral icterus appreciated General: Alert, Cooperative, No acute distress Heart: Regular rate, No murmurs Lungs: Other (decrease bs) Abdomen: Soft, Other (Distended) Extremities: No clubbing, No cyanosis Labs LABS Laboratory Tests Test 06/18/19 04:00 Sodium Level 140 mmol/L (136-145) Potassium Level 4.4 mmol/L (3.5-5.1) Chloride Level 109 mmol/L (98-107) Carbon Dioxide Level 24 mmol/L (21-32) Anion Gap 7 (6-14) Blood Urea Nitrogen 8 mg/dL (7-20) Creatinine 0.8 mg/dL (0.6-1.0) Estimated GFR (Cockcroft-Gault) 72.9 Glucose Level 81 mg/dL (70-99) Calcium Level 7.4 mg/dL (8.5-10.1) Assessment and Plan Assessmemt and Plan Problems Medical Problems: (1) CAP (community acquired pneumonia) Status: Acute Comment Review of Relevant I have reviewed the following items ginger (where applicable) has been applied. Labs Laboratory Tests Test 06/16/19 09:48 06/17/19 05:00 06/18/19 04:00 Body Fluid Source Ascites Body Fluid Color Yellow Body Fluid Clarity Hazy Body Fluid Nucleated Cells 240 /cmm (Not Established) Body Fluid Mononuclear WBCs (%) 53 % Body Fluid Polymorphonuclear Cells 42 % Body Fluid Total RBCs Counted 1754 /cmm (Not Established) Body Fluid Other Cells (%) 5 % Sodium Level 140 mmol/L (136-145) 140 mmol/L (136-145) Potassium Level 3.9 mmol/L (3.5-5.1) 4.4 mmol/L (3.5-5.1) Chloride Level 107 mmol/L (98-107) 109 mmol/L (98-107) Carbon Dioxide Level 23 mmol/L (21-32) 24 mmol/L (21-32) Anion Gap 10 (6-14) 7 (6-14) Blood Urea Nitrogen 8 mg/dL (7-20) 8 mg/dL (7-20) Creatinine 0.9 mg/dL (0.6-1.0) 0.8 mg/dL (0.6-1.0) Estimated GFR (Cockcroft-Gault) 63.7 72.9 Glucose Level 83 mg/dL (70-99) 81 mg/dL (70-99) Calcium Level 7.5 mg/dL (8.5-10.1) 7.4 mg/dL (8.5-10.1) Laboratory Tests Test 06/18/19 04:00 Sodium Level 140 mmol/L (136-145) Potassium Level 4.4 mmol/L (3.5-5.1) Chloride Level 109 mmol/L (98-107) Carbon Dioxide Level 24 mmol/L (21-32) Anion Gap 7 (6-14) Blood Urea Nitrogen 8 mg/dL (7-20) Creatinine 0.8 mg/dL (0.6-1.0) Estimated GFR (Cockcroft-Gault) 72.9 Glucose Level 81 mg/dL (70-99) Calcium Level 7.4 mg/dL (8.5-10.1) Microbiology 06/16/19 Anaerobic/Aerobic Culture, Resulted Pending 06/16/19 Anaerobic Culture Result 1 (JUDD), Resulted Pending 06/16/19 Aerobic Culture, Resulted Pending 06/16/19 Aerobic Culture Result 1 (JUDD), Resulted Pending 06/16/19 Gram Stain - Final, Resulted 06/16/19 Gram Stain Result 1 (JUDD) - Final, Resulted 06/16/19 Gram Stain Result 2 (JUDD) - Final, Resulted 06/15/19 Blood Culture - Preliminary, Resulted NO GROWTH AFTER 2 DAYS 06/15/19 Urine Culture - Final, Complete 06/15/19 Urine Culture Result 1 (JUDD) - Final, Complete Medications Current Medications Albuterol Sulfate (Ventolin Neb Soln) 5 mg 1X ONCE NEB Last administered on 06/15/19at 05:17; Start 06/15/19 at 05:30; Stop 06/15/19 at 05:31; Status DC Ipratropium [place] (Atrovent) 0.5 mg 1X ONCE NEB Last administered on 06/15/19at 05:17; Start 06/15/19 at 05:30; Stop 06/15/19 at 05:31; Status DC Sodium Chloride 1,000 ml @ 1,000 mls/hr 1X ONCE IV Last administered on 06/15/19at 06:10; Start 06/15/19 at 06:00; Stop 06/15/19 at 06:59; Status DC Ceftriaxone Sodium (Rocephin) 1 gm 1X ONCE IVP Last administered on 06/15/19at 06:14; Start 06/15/19 at 06:00; Stop 06/15/19 at 06:01; Status DC Azithromycin (Zithromax) 500 mg 1X ONCE PO Last administered on 06/15/19at 06:14; Start 06/15/19 at 06:00; Stop 06/15/19 at 06:01; Status DC Ondansetron HCl (Zofran) 4 mg PRN Q8HRS PRN IV NAUSEA/VOMITING 1ST CHOICE; Start 06/15/19 at 05:45; Stop 06/16/19 at 05:44; Status DC Morphine Sulfate (Morphine Sulfate) 2 mg PRN Q2HR PRN IV SEVERE PAIN 7-10; Start 06/15/19 at 05:45; Stop 06/16/19 at 05:44; Status DC Acetaminophen (Tylenol) 650 mg PRN Q4HRS PRN PO FEVER; Start 06/15/19 at 05:45; Stop 06/16/19 at 05:44; Status DC Albuterol/ Ipratropium (Duoneb) 3 ml RTQID NEB Last administered on 06/15/19at 11:24; Start 06/15/19 at 08:00; Stop 06/16/19 at 07:59; Status DC Azithromycin 500 mg/Sodium Chloride 250 ml @ 250 mls/hr Q24H IV Last administered on 06/17/19at 11:17; Start 06/15/19 at 12:00 Piperacillin Sod/ Tazobactam Sod 3.375 gm/Sodium Chloride 50 ml @ 100 mls/hr Q6HRS IV Last administered on 06/18/19at 06:14; Start 06/15/19 at 12:00 Influenza Virus Vaccine Quadrival (Afluria Quad 2019-20 (3yr Up) Syringe) 0.5 ml ONCE ONCE VAX IM Last administered on 06/15/19at 15:27; Start 06/15/19 at 11:45; Stop 06/15/19 at 11:46; Status DC Sodium Chloride (Normal Saline Flush) 3 ml QSHIFT PRN IV AFTER MEDS AND BLOOD DRAWS; Start 06/15/19 at 13:00 Sodium Chloride 1,000 ml @ 100 mls/hr Q10H IV Last administered on 06/16/19at 21:22; Start 06/15/19 at 12:57 Ondansetron HCl (Zofran) 4 mg PRN Q4HRS PRN IV NAUSEA/VOMITING; Start 06/15/19 at 13:00 Acetaminophen (Tylenol) 650 mg PRN Q4HRS PRN PO TEMP OVER 100.4F OR MILD PAIN; Start 06/15/19 at 13:00 Al Hydroxide/Mg Hydroxide (Mylanta Plus Xs) 30 ml PRN DAILY PRN PO HEARTBURN / GAS; Start 06/15/19 at 13:00 Clonidine HCl (Catapres) 0.1 mg PRN Q6HRS PRN PO SBP>160 OR DBP>90; Start 06/15/19 at 13:00 Docusate Sodium (Colace) 100 mg PRN BID PRN PO CONSTIPATION; Start 06/15/19 at 13:00 Albuterol/ Ipratropium (Duoneb) 3 ml Q4H NEB Last administered on 06/18/19at 07:57; Start 06/15/19 at 13:00 Guaifenesin (Robitussin) 200 mg PRN Q4HRS PRN PO COUGH; Start 06/15/19 at 13:00 Lorazepam (Ativan) 0.5 mg PRN Q4HRS PRN PO ANXIETY / AGITATION; Start 06/15/19 at 13:00 Enoxaparin Sodium (Lovenox 40mg Syringe) 40 mg DAILY SQ ; Start 06/16/19 at 09:00; Stop 06/16/19 at 12:45; Status DC Pantoprazole Sodium (Protonix) 40 mg DAILYAC PO Last administered on 06/17/19at 08:37; Start 06/16/19 at 07:30 Iohexol (Omnipaque 300 Mg/ml) 75 ml 1X ONCE IV Last administered on 06/15/19at 13:58; Start 06/15/19 at 13:30; Stop 06/15/19 at 13:31; Status DC Info (CONTRAST GIVEN -- Rx MONITORING) 1 each PRN DAILY PRN MC SEE COMMENTS; Start 06/15/19 at 13:30; Stop 06/17/19 at 13:29; Status DC Spironolactone (Aldactone) 25 mg DAILY PO Last administered on 06/17/19at 08:37; Start 06/17/19 at 09:00 Vitals/I & O Vital Sign - Last 24 Hours 06/17/19 06/17/19 06/17/19 06/17/19 11:00 11:39 15:10 15:45 Temp 98.4 97.8 98.4 97.8 Pulse 65 69 Resp 18 20 B/P (MAP) 93/54 (67) 112/56 (74) Pulse Ox 96 98 93 97 O2 Delivery Room Air Room Air Room Air Room Air 06/17/19 06/17/19 06/17/19 06/17/19 19:03 20:00 20:28 23:00 Temp 97.8 98.5 97.8 98.5 Pulse 75 72 Resp 19 23 B/P (MAP) 105/63 (77) 83/50 (61) Pulse Ox 97 97 95 O2 Delivery Room Air Room Air Room Air Room Air 06/17/19 06/18/19 06/18/19 06/18/19 23:20 03:00 07:00 07:58 Temp 98.1 98.1 98.1 98.1 Pulse 105 76 Resp 20 18 B/P (MAP) 81/41 (54) 93/47 (62) Pulse Ox 94 97 98 O2 Delivery Room Air Room Air Room Air Room Air Intake and Output 06/17/19 06/17/19 06/18/19 15:00 23:00 07:00 Intake Total 240 ml Balance 240 ml BLANCA CASTILLO MD Jun 18, 2019 08:50
[2019-06-18] MEDS: PANTOPRAZOLE 40 MG TABLET.DR. PO SCH (09:16)
[2019-06-18] MEDS: SPIRONOLACTONE 25 MG TABLET PO SCH ×2 (10:14→12:40)
--- NOTE | 2019-06-18 10:48 | PDOC ---
Subjective: Subjective: Wants to go home, feels abdomen is bloated but thinks breathing better. Objective: Objective: D/w nurse - spironolactone held w/ low BP (gave okay to hold until d/w Dr. Phan) - had coughing and wheezing this morning, breathing treatment helped. Vital Signs: Vital Signs Date Time Temp Pulse Resp B/P (MAP) Pulse Ox O2 Delivery O2 Flow Rate FiO2 06/18/19 07:58 98 Room Air 06/18/19 07:00 98.1 76 18 93/47 (62) 98.1 Labs: Laboratory Tests Test 06/18/19 04:00 Sodium Level 140 mmol/L Potassium Level 4.4 mmol/L Chloride Level 109 mmol/L Carbon Dioxide Level 24 mmol/L Anion Gap 7 Blood Urea Nitrogen 8 mg/dL Creatinine 0.8 mg/dL Estimated GFR (Cockcroft-Gault) 72.9 Glucose Level 81 mg/dL Calcium Level 7.4 mg/dL Current Medicatio PE: GEN: NAD LUNGS: less coughing HEART: RRR ABD: round, some distention NEURO/PSYCH: A & O 3 A/P: COPD exacerbation Hep C cirrhosis - ascites s/p paracentesis - varices on CT ACD -- Reviewed w/ Dr. Phan - okay to DC per GI on spironolactone and no added salt diet (no salt substitute, no processed meats, no canned soups, no canned veggies). Follow-up in 2-3 weeks in the office - needs EGD to screen for varices, also consider screening colonoscopy. Since I saw her, nurse says plans to repeat CXR per pulm. SARA ESPINOZA Jun 18, 2019 10:48
--- NOTE | 2019-06-18 10:52 | PDOC ---
PULMONARY PROGRESS NOTES Subjective mild dry cough with white sputum s/p paracentesis RN said she was wheezing earlier Vitals Vital Signs Date Time Temp Pulse Resp B/P (MAP) Pulse Ox O2 Delivery O2 Flow Rate FiO2 06/18/19 07:58 98 Room Air 06/18/19 07:00 98.1 76 18 93/47 (62) 98.1 ROS: No Chest Pain General: Alert, No acute distress Lungs: Other (decrease bs) Cardiovascular: S1 Abdomen: Soft, Non-tender Neuro Exam: Alert Extremities: No Edema Skin: Warm Labs Laboratory Tests Test 06/17/19 05:00 06/18/19 04:00 Sodium Level 140 mmol/L (136-145) 140 mmol/L (136-145) Potassium Level 3.9 mmol/L (3.5-5.1) 4.4 mmol/L (3.5-5.1) Chloride Level 107 mmol/L (98-107) 109 mmol/L (98-107) Carbon Dioxide Level 23 mmol/L (21-32) 24 mmol/L (21-32) Anion Gap 10 (6-14) 7 (6-14) Blood Urea Nitrogen 8 mg/dL (7-20) 8 mg/dL (7-20) Creatinine 0.9 mg/dL (0.6-1.0) 0.8 mg/dL (0.6-1.0) Estimated GFR (Cockcroft-Gault) 63.7 72.9 Glucose Level 83 mg/dL (70-99) 81 mg/dL (70-99) Calcium Level 7.5 mg/dL (8.5-10.1) 7.4 mg/dL (8.5-10.1) Laboratory Tests Test 06/18/19 04:00 Sodium Level 140 mmol/L (136-145) Potassium Level 4.4 mmol/L (3.5-5.1) Chloride Level 109 mmol/L (98-107) Carbon Dioxide Level 24 mmol/L (21-32) Anion Gap 7 (6-14) Blood Urea Nitrogen 8 mg/dL (7-20) Creatinine 0.8 mg/dL (0.6-1.0) Estimated GFR (Cockcroft-Gault) 72.9 Glucose Level 81 mg/dL (70-99) Calcium Level 7.4 mg/dL (8.5-10.1) Comments CXR 06/18 mild interstitial infiltrates, better right side Impression . 1. Acute exacerbation of chronic obstructive pulmonary disease. 2. Acute hypoxemic respiratory failure secondary to above and ascites 3. Leukocytosis. 4. Ascites and splenomegaly. The patient reports hepatitis C and cirrhosis. ? liver cancer, had previous paracentesis. 5. Cholelithiasis. 6. Abnormal ct chest with patchy GG pneumonitis and LLL pneumonia 7. Ascites. Plan . 1. can change to PO antibiotics. 2. CT chest reviewed/ CXR 06/18 reviewed. will try mild diuresis 3. Follow GI input. 4. clinically stable 5. The patient instructed on the importance of discontinuing tobacco use. 6. dc plans per PCP JONN RAM MD Jun 18, 2019 10:52
[2019-06-18 11:00] VITALS: BP 104/40
--- NOTE | 2019-06-18 11:08 | RAD ---
Single view of the chest. 06/18/2019 10:13 AM Indication: Pneumonia follow-up. Comparison: Chest CT June 15, 2019 portable chest radiograph June 15, 2019 Findings: Diffuse interstitial coarsening is seen. No pneumothorax or significant effusion is identified. Left basilar calcified granulomas noted. Heart size appears to be within normal limits. No acute osseous changes are seen. IMPRESSION: Mild diffuse interstitial coarsening, similar to prior radiographs.. Appearance is nonspecific and could represent chronic change, mild edema, or an atypical/viral infiltrate. Electronically signed by: Juventino Gonzalez MD (06/18/2019 11:05 AM) [id number]
[2019-06-18] MEDS ORDERED: AMOXICILLIN/K CLAV 500/125MG TABLET. PO SCH (11:30)
[2019-06-18] MEDS ORDERED: PANT40TA77 PO (13:09)
[2019-06-18] MEDS ORDERED: FURO20TA3 PO (13:09)
[2019-06-18] MEDS ORDERED: SPIR25TA PO (13:09)
[2019-06-18] MEDS ORDERED: AMOX1TAB10 PO (13:09)
[2019-06-18 15:00] VITALS: BP 98/45
--- NOTE | 2019-06-18 16:47 | PDOC3 ---
Discharge Summary Visit Information Date of Admission: Jun 15, 2019 Date of Discharge: Jun 18, 2019 Admitting Diagnosis: CAP Final Diagnosis Problems Medical Problems: (1) CAP (community acquired pneumonia) Status: Acute Brief Hospital Course Allergies Allergies Coded Allergies Type Severity Reaction Last Updated Verified tetracycline Allergy Intermediate Hives 06/15/19 Yes Vital Signs Vital Signs Date Time Temp Pulse Resp B/P (MAP) Pulse Ox O2 Delivery O2 Flow Rate FiO2 06/18/19 15:00 98.1 68 20 98/45 (62) 97 Room Air 98.1 Lab Results Laboratory Tests Test 06/17/19 05:00 06/18/19 04:00 Sodium Level 140 mmol/L (136-145) 140 mmol/L (136-145) Potassium Level 3.9 mmol/L (3.5-5.1) 4.4 mmol/L (3.5-5.1) Chloride Level 107 mmol/L (98-107) 109 mmol/L (98-107) Carbon Dioxide Level 23 mmol/L (21-32) 24 mmol/L (21-32) Anion Gap 10 (6-14) 7 (6-14) Blood Urea Nitrogen 8 mg/dL (7-20) 8 mg/dL (7-20) Creatinine 0.9 mg/dL (0.6-1.0) 0.8 mg/dL (0.6-1.0) Estimated GFR (Cockcroft-Gault) 63.7 72.9 Glucose Level 83 mg/dL (70-99) 81 mg/dL (70-99) Calcium Level 7.5 mg/dL (8.5-10.1) 7.4 mg/dL (8.5-10.1) Laboratory Tests Test 06/18/19 04:00 Sodium Level 140 mmol/L (136-145) Potassium Level 4.4 mmol/L (3.5-5.1) Chloride Level 109 mmol/L (98-107) Carbon Dioxide Level 24 mmol/L (21-32) Anion Gap 7 (6-14) Blood Urea Nitrogen 8 mg/dL (7-20) Creatinine 0.8 mg/dL (0.6-1.0) Estimated GFR (Cockcroft-Gault) 72.9 Glucose Level 81 mg/dL (70-99) Calcium Level 7.4 mg/dL (8.5-10.1) Brief Hospital Course Ms Penny is a 63 y/o female w/ PMHx Hep C cirrhosis of the liver admitted for SOB, pneumonia. Had been feeling sick for 2 weeks since returning home from [place] where she [facility]. Has had abdominal bloating/distention since then as well. H/o similar symptoms 5-6 years ago and was seen at - diagnosed w/ Hep C, cirrhosis, and liver cancer. Says she had paracentesis, was told she had 6 months to live, was given two water pills, and was put on the transplant list. Never followed up. Notes ankle swelling but has been out for 5-6 months. Thinks she got Hep C when she donated plasma in the 1970s. Seen by cardiology, GI, and pulmonology in consultation. S/p 1.9L paracentesis 06/17/19. Denies reflux/heartburn, dysphagia, n/v, abd pain, change in appetite, diarrhea, constipation, hematochezia, or melena. Weight fluctuates. Asking for d/c home today Cough and shortness of breath for the last couple of weeks Acute exacerbation of chronic obstructive pulmonary disease - antibiotics on d/c Acute hypoxemic respiratory failure secondary to above and ascites Leukocytosis. Ascites and splenomegaly. The patient reports hepatitis C and cirrhosis. Cholelithiasis. Abnormal ct chest with patchy GG pneumonitis and LLL pneumonia Ascites - furosemide and aldactone on d/c Greater than 30 minutes spent on d/c Discharge Information Condition at Discharge: Improved Follow Up: Weeks (1) Disposition/Orders: D/C to Home Scheduled Amoxicillin/Potassium Clav (Amox Tr-K Clv 500-125 Mg Tab) 1 Each Tablet, 1 TAB PO BID for Pneumonia for 5 Days, #10 Prescribed by: BLANCA CASTILLO MD on 06/18/19 1309 Furosemide (Furosemide) 20 Mg Tablet, 1 TAB PO DAILY for Cirrhosis for 30 Days, #30 Ref 0 Prescribed by: BLANCA CASTILLO MD on 06/18/19 1309 Pantoprazole Sodium (Pantoprazole Sodium ) 40 Mg Tablet.dr, 40 MG PO DAILYAC for GERD for 30 Days, #30 Prescribed by: BLANCA CASTILLO MD on 06/18/19 1309 Spironolactone (Aldactone) 25 Mg Tablet, 50 MG PO DAILY for Cirrhosis for 30 Days, #60 Prescribed by: BLANCA CASTILLO MD on 06/18/19 1309 BLANCA CASTILLO MD Jun 18, 2019 16:47
[2019-06-19 13:11] LABS: HCV ULTRA QUANT PCR 14300 IU/mL (.)
== END 2019-06-18 16:41 | disposition home or self-care (01) | DRG 177 ==
LOC: ER 04:40 → ED HOLD 06:32 → 2 SOUTH 11:00 → 5 SOUTH 06-17 18:37
PROVIDERS: ADMIT Internal Medicine; ATTEND Internal Medicine
PROC: 0W9G3ZZ Drainage of Peritoneal Cavity, Percutaneous Approach (ICD-10-PCS; principal; 2019-06-16)
DX: J69.0 Pneumonitis due to inhalation of food and vomit (principal); J96.01 Acute respiratory failure with hypoxia; E43 Unspecified severe protein-calorie malnutrition; C22.9 Malignant neoplasm of liver, not specified as primary or secondary; J44.0 Chronic obstructive pulmonary disease with (acute) lower respiratory infection; J44.1 Chronic obstructive pulmonary disease with (acute) exacerbation; R18.8 Other ascites; D69.6 Thrombocytopenia, unspecified; E11.9 Type 2 diabetes mellitus without complications; E78.5 Hyperlipidemia, unspecified; F17.210 Nicotine dependence, cigarettes, uncomplicated; K57.30 Diverticulosis of large intestine without perforation or abscess without bleeding; K74.60 Unspecified cirrhosis of liver; K80.20 Calculus of gallbladder without cholecystitis without obstruction; Z82.49 Family history of ischemic heart disease and other diseases of the circulatory system; Z85.05 Personal history of malignant neoplasm of liver; Z83.3 Family history of diabetes mellitus; Z88.8 Allergy status to other drugs, medicaments and biological substances
CPT/HCPCS: 36415; 36600; 49083; 71045; 71250; 74178; 76700; 80048; 80053; 81001; 82105; 82805; 83540; 83550; 83605; 83880; 84484; 85007; 85025; 85610; 86705; 86709; 86803; 87040; 87071; 87075; 87086; 87340; 87521; 87804; 88112; 88305; 89050; 90471; 90686; 93005; 93306; 94640; 96361; 96374; J0456; J0696; J2543; J7030; J7050; J7613; J7620; J7644; Q0144; Q9967; 97116; 97530; 97535; 99285-25; G0378

== ENCOUNTER 2019-08-09 11:42 | Emergency (ER) | payer MEDICAID ==
[~2019-08-09] VITALS: Ht 157.5 cm; Wt 67.6 kg
[2019-08-09 11:42] VITALS: BP 120/60
[~2019-08-09 11:42] MED LIST: AMOX1TAB10 PO; FURO20TA3 PO; PANT40TA77 PO; SPIR25TA PO
--- NOTE | 2019-08-09 12:17 | PHYS DOC ---
Past Medical History Past Medical History: Bronchitis, Cancer, Other Additional Past Medical Histor: LIVER CA Past Surgical History: No Surgical History Alcohol Use: None Drug Use: None Adult General Chief Complaint Chief Complaint: WRIST PAIN HPI HPI Patient is a 64 year old female who presents with L hand pain and swelling after she fell last night. Patient states that she tripped over a concrete curb and fell on the ground. States her pain is controlled and moderate in nature 5 out of 10. Review of Systems Review of Systems Constitutional: Denies fever or chills [] Eyes: Denies change in visual acuity, redness, or eye pain [] HENT: Denies nasal congestion or sore throat [] Respiratory: Denies cough or shortness of breath [] Cardiovascular: No additional information not addressed in HPI [] GI: Denies abdominal pain, nausea, vomiting, bloody stools or diarrhea [] : Denies dysuria or hematuria [] Musculoskeletal: Reports L hand pain and swelling. Integument: Denies rash or skin lesions [] Neurologic: Denies headache, focal weakness or sensory changes [] Endocrine: Denies polyuria or polydipsia [] Complete systems were reviewed and found to be within normal limits, except as documented in this note. Allergies Allergies Allergies Coded Allergies Type Severity Reaction Last Updated Verified tetracycline Allergy Intermediate Hives 06/15/19 Yes Physical Exam Physical Exam Constitutional: Well developed, well nourished, no acute distress, non-toxic appearance. [] HENT: Normocephalic, atraumatic, bilateral external ears normal, oropharynx mois t, no oral exudates, nose normal. [] Eyes: PERRLA, EOMI, conjunctiva normal, no discharge. [] Neck: Normal range of motion, no tenderness, supple, no stridor. [] Skin: Warm, dry, no erythema, no rash. [] Back: No tenderness, no CVA tenderness. [] Extremities: L hand tenderness and edema. Neurovascularly intact. Neurologic: Alert and oriented X 3, normal motor function, normal sensory function, no focal deficits noted. [] Psychologic: Affect normal, judgement normal, mood normal. [] Current Patient Data Vital Signs Vital Signs Date Time Temp Pulse Resp B/P (MAP) Pulse Ox O2 Delivery O2 Flow Rate FiO2 08/09/19 11:42 98.5 62 16 120/60 (80) 100 Room Air 98.5 EKG EKG [] Radiology/Procedures Radiology/Procedures [][facility] [address] [place] [address] IMAGING REPORT Signed PATIENT: JOHN NEGRO ACCOUNT: [id number] : 1955 LOCATION: ER AGE: 64 SEX: F EXAM STATUS: REG ER ORD. PHYSICIAN: LYNN SANTANA APRN REASON: fall. left hand, wrist pain and swelling PROCEDURE: WRIST 3V LEFT Left hand 3 views, left wrist 3 views. HISTORY: Fall, hand and wrist pain Left hand 3 views were taken of the left hand. There is no acute fracture at the hand. There is diffuse soft tissue swelling. Left wrist 3 views were taken of the left wrist. There is a comminuted fracture of the distal radius. There is mild impaction at the dorsal cortex. There is minimal angulation. There is a cortex width of dorsal displacement. The distal ulna appears intact. IMPRESSION: 1. Comminuted fracture distal left radius.. 2. No fracture noted in the left hand. Electronically signed by: Jarred Kat MD (08/09/2019 12:43 PM) [id number] DICTATED and SIGNED BY: JARRED KAT MD DATE: 08/09/19 1243 Course & Med Decision Making Course & Med Decision Making Pertinent Labs and Imaging studies reviewed. (See chart for details) Will get imaging. IMPRESSION: 1. Comminuted fracture distal left radius.. 2. No fracture noted in the left hand. Will place in splint and have follow up with ortho. Lanette Disclaimer Dragon Disclaimer This electronic medical record was generated, in whole or in part, using a voice recognition dictation system. Departure Departure Impression: Primary Impression: Distal radius fracture, left Disposition: HOME, SELF-CARE Condition: STABLE Referrals: NO PCP (PCP) MARCELL DAILEY MD Patient Instructions: Radial Fracture Additional Instructions: Thank you for visiting [facility]. We appreciate you trusting us with your care. If any additional problems come up don't hesitate to return to visit us. Please follow up with your primary care provider so they can plan additional care if needed and know about the problem that you had. If symptoms worsen come back to the Emergency Department. Any concerning symptoms that start such as chest pain, shortness of air, weakness or numbness on one side of the body, running high fevers or any other concerning symptoms return to the ER. Please follow up with orthopedics. Problem Qualifiers Primary Impression: Distal radius fracture, left Encounter type: initial encounter Fracture type: closed Fracture morphology: unspecified fracture morphology Qualified Codes: S52.502A - Unspecified fracture of the lower end of left radius, initial encounter for closed fracture LYNN SANTANA APRN Aug 09, 2019 12:17
--- NOTE | 2019-08-09 12:45 | RAD ---
Left hand 3 views, left wrist 3 views. HISTORY: Fall, hand and wrist pain Left hand 3 views were taken of the left hand. There is no acute fracture at the hand. There is diffuse soft tissue swelling. Left wrist 3 views were taken of the left wrist. There is a comminuted fracture of the distal radius. There is mild impaction at the dorsal cortex. There is minimal angulation. There is a cortex width of dorsal displacement. The distal ulna appears intact. IMPRESSION: 1. Comminuted fracture distal left radius.. 2. No fracture noted in the left hand. Electronically signed by: Jarred Kat MD (08/09/2019 12:43 PM) [facility]
== END 2019-08-09 13:30 | disposition home or self-care (01) ==
LOC: ER 11:42
DX: S52.502A Unspecified fracture of the lower end of left radius, initial encounter for closed fracture (principal); Z88.1 Allergy status to other antibiotic agents; W10.1XXA Fall (on)(from) sidewalk curb, initial encounter; Y93.89 Activity, other specified; Y92.89 Other specified places as the place of occurrence of the external cause; Y99.8 Other external cause status
CPT/HCPCS: 29125; 73110; 73130; 99284

== ENCOUNTER 2020-02-19 08:57 | Emergency (ER) | payer MEDICAID ==
[~2020-02-19] VITALS: Ht 157.5 cm; Wt 63.0 kg
--- NOTE | 2020-02-19 09:21 | PHYS DOC ---
Past Medical History Past Medical History: Bronchitis, Cancer, Other Additional Past Medical Histor: LIVER CA Past Surgical History: Appendectomy Smoking Status: Current Every Day Smoker Alcohol Use: None Drug Use: None General Adult EDM: Chief Complaint: desires paracentesis HPI: HPI: 64-year-old female presenting the emergency department today desiring to have a paracentesis performed because her abdomen is getting full. She has a history of chronic liver disease and follows with [facility]. Her next point with GI is non- till April and it is not clear that she has a regular paracentesis schedule currently. She denies having abdominal pain vomiting fevers chills dysuria polyuria. She is trying to have her paracentesis performed before it is too late. Onset weeks. Duration constant. Alleviated by paracentesis. Review of systems negative for chest pain shortness of breath vomiting fevers chills. All other review of systems negative. ED course: 64-year-old female presented emergency department today with abdominal distention with a history of chronic liver disease desiring to have a paracentesis performed. Patient is well-appearing with out any distress. She has no symptoms. I spoke with our interventional radiologist who recommended the patient arrange an appointment for outpatient paracentesis. We will have the patient follow-up with her GI doctor and or we will establish for her to see 1 of our GI doctors and or we will have her see her primary doctor and or we will have to set up a PCP for her and they will have to order a paracentesis for her outpatient. She is to return for any acute symptoms or any concerns. Heart Score: Risk Factors: Risk Factors: DM, Current or recent (<one month) smoker, HTN, HLP, family history of CAD, obesity. Risk Scores: Score 0 - 3: 2.5% MACE over next 6 weeks - Discharge Home Score 4 - 6: 20.3% MACE over next 6 weeks - Admit for Clinical Observation Score 7 - 10: 72.7% MACE over next 6 weeks - Early Invasive Strategies Allergies: Allergies: Allergies Coded Allergies Type Severity Reaction Last Updated Verified tetracycline Allergy Intermediate Hives 06/15/19 Yes Physical Exam: PE: Constitutional: Well developed, well nourished, no acute distress, non-toxic appearance. HENT: Normocephalic, atraumatic, bilateral external ears normal, oropharynx moist, no oral exudates, nose normal. [] Eyes: PERRLA, EOMI, conjunctiva normal, no discharge. Neck: Normal range of motion, no tenderness, supple, no stridor. [] Cardiovascular:Heart rate regular rhythm, no murmur Lungs & Thorax: Bilateral breath sounds clear to auscultation [] Abdomen: Bowel sounds normal, soft, no tenderness, no masses, no pulsatile masses. Patient's abdomen is distended. ascites present. Skin: Warm, dry, no erythema, no rash. Back: No tenderness, no CVA tenderness. [] Extremities: No tenderness, no cyanosis, no clubbing, ROM intact, no edema. Neurologic: Alert and oriented X 3, normal motor function, normal sensory function, no focal deficits noted. Psychologic: Affect normal, judgement normal, mood normal. [] EKG: EKG: [] Radiology/Procedures: Radiology/Procedures: [] Course & Med Decision Making: Course & Med Decision Making Pertinent Labs and Imaging studies reviewed. (See chart for details) [] Dragon Disclaimer: [employer] Disclaimer: This electronic medical record was generated, in whole or in part, using a voice recognition dictation system. Departure Departure Impression: Primary Impression: Cirrhosis Additional Impression: Ascites Disposition: 01 HOME, SELF-CARE Condition: STABLE Referrals: NO PCP (PCP) Patient Instructions: Ascites Additional Instructions: Follow-up with your primary physician in 1 to 2 days. You will need to arrange an outpatient paracentesis through your primary physician or your GI doctor. If you would like to get a PCP or GI doctor through our system we have provided y ou with a number to arrange that. Return to the emergency department if you have any new or concerning findings. Justicifation of Admission Dx: Justifications for Admission: Justification of Admission Dx: N/A RHINA RODRIGUEZ MD Feb 19, 2020 09:21
[2020-02-19 09:24] LABS: BILIRUBIN,URINE NEGATIVE (NEG); CLARITY,URINE CLEAR; COLOR,URINE AMBER; NITRITE,URINE NEGATIVE (NEG); PH,URINE 5.5 (<5.0-8.0); PROTEIN,URINE NEGATIVE (NEG-TRACE)
[2020-02-19 09:42] LABS: BACTERIA,URINE FEW /HPF (0-FEW); RBC,URINE OCC /HPF (0-2)
[2020-02-19 09:43] LABS: SQUAMOUS EPITHELIAL CELL,UR MOD /LPF
[2020-02-19 09:48] LABS: BASO % 1 % (0-3); EOS # 0.1 x10^3/uL (0.0-0.7); EOS % 3 % (0-3); HEMATOCRIT 30.5 % (36.0-47.0); HEMOGLOBIN 10.7 g/dL (12.0-15.5); LYMPH # 0.5 x10^3/uL (1.0-4.8); LYMPH % 15 % (24-48); MEAN CORPUSCULAR HEMOGLOBIN 34 pg (25-35); MEAN CORPUSCULAR HGB CONC 35 g/dL (31-37); MEAN CORPUSCULAR VOLUME 96 fL (79-100); MONO # 0.5 x10^3/uL (0.0-1.1); MONO % 14 % (0-9); NEUT # 2.3 x10^3/uL (1.8-7.7); NEUT % 66 % (31-73); PLATELET COUNT 51 x10^3/uL (140-400); RED BLOOD COUNT 3.18 x10^6/uL (3.50-5.40); RED CELL DISTRIBUTION WIDTH 15.3 % (11.5-14.5); WHITE BLOOD COUNT 3.5 x10^3/uL (4.0-11.0)
[2020-02-19 09:58] LABS: CALCIUM 7.7 mg/dL (8.5-10.1); CREATININE 0.7 mg/dL (0.6-1.0); GFR 84.8; POTASSIUM 3.8 mmol/L (3.5-5.1)
[2020-02-19 10:01] LABS: PROTHROMBIN TIME PATIENT 16.6 SEC (11.7-14.0)
[2020-02-19 10:04] LABS: ALBUMIN 2.3 g/dL (3.4-5.0); DIRECT BILIRUBIN 0.4 mg/dL (0.0-0.2); TOTAL PROTEIN 7.7 g/dL (6.4-8.2)
[2020-02-19 10:38] VITALS: BP 113/63
== END 2020-02-19 11:01 | disposition home or self-care (01) ==
LOC: ER 08:57
DX: K74.60 Unspecified cirrhosis of liver (principal); R18.8 Other ascites; F17.200 Nicotine dependence, unspecified, uncomplicated; Z90.89 Acquired absence of other organs; Z85.05 Personal history of malignant neoplasm of liver; Z88.1 Allergy status to other antibiotic agents
CPT/HCPCS: 36415; 80048; 80076; 81001; 83690; 84484; 85025; 85610; 85730; 99283

== ENCOUNTER 2020-08-17 16:06 | Inpatient (IN) | payer MEDICAID ==
[~2020-08-17] VITALS: Ht 157.5 cm; Wt 61.8 kg
[2020-08-17 16:35] LABS: BASO % 1 % (0-3); EOS # 0.1 x10^3/uL (0.0-0.7); EOS % 3 % (0-3); HEMATOCRIT 32.3 % (36.0-47.0); HEMOGLOBIN 11.1 g/dL (12.0-15.5); LYMPH # 0.5 x10^3/uL (1.0-4.8); LYMPH % 13 % (24-48); MEAN CORPUSCULAR HEMOGLOBIN 34 pg (25-35); MEAN CORPUSCULAR HGB CONC 34 g/dL (31-37); MEAN CORPUSCULAR VOLUME 100 fL (79-100); MONO # 0.6 x10^3/uL (0.0-1.1); MONO % 15 % (0-9); NEUT # 2.8 x10^3/uL (1.8-7.7); NEUT % 69 % (31-73); PLATELET COUNT 61 x10^3/uL (140-400); RED BLOOD COUNT 3.23 x10^6/uL (3.50-5.40); RED CELL DISTRIBUTION WIDTH 15.5 % (11.5-14.5); WHITE BLOOD COUNT 4.1 x10^3/uL (4.0-11.0)
[2020-08-17 16:45] LABS: PROTHROMBIN TIME PATIENT 17.7 SEC (11.7-14.0)
--- NOTE | 2020-08-17 16:52 | RAD ---
XR CHEST 1V History: Reason: SOA / Spl. Instructions: / History: Comparison: June 18, 2019 Findings: Small to moderate right pleural effusion with adjacent opacities. Calcified left lateral pulmonary no dule, likely prior granulomatous disease. Patchy bibasilar opacity, likely atelectasis. No pneumothor ax. Normal heart size. Moderate gaseous distention of the stomach. Impression: 1. Small to moderate right pleural effusion with adjacent opacities, may represent atelectasis or co nsolidation. 2. Moderate distention of the stomach. Electronically signed by: Ritchie Aguirre DO (08/17/2020 4:50 PM) [facility]
[2020-08-17] MEDS ORDERED: DEXAMETHASONE SOD PHOS 20 MG/5 ML VIAL. IV ONE (17:15)
[2020-08-17 17:28] LABS: INFLUENZA A PATIENT NEGATIVE (NEGATIVE); INFLUENZA B PATIENT NEGATIVE (NEGATIVE)
[2020-08-17 17:32] LABS: CALCIUM 7.9 mg/dL (8.5-10.1); CREATININE 0.6 mg/dL (0.6-1.0); POTASSIUM 3.3 mmol/L (3.5-5.1)
[2020-08-17 17:38] LABS: ALBUMIN 2.1 g/dL (3.4-5.0); ALBUMIN/GLOBULIN RATIO 0.4 (1.0-1.7); TOTAL BILIRUBIN 1.6 mg/dL (0.2-1.0); TOTAL PROTEIN 8.1 g/dL (6.4-8.2)
[2020-08-17] MEDS ORDERED: IOHEXOL 300 MG/ML 100ML VIAL. IV ONE (18:00)
[2020-08-17] MEDS ORDERED: CONTRAST GIVEN. MC PRN (18:00)
--- NOTE | 2020-08-17 18:05 | PHYS DOC ---
Past Medical History Past Medical History: Bronchitis, Cancer, Liver Disease, Other Additional Past Medical Histor: LIVER CA, CIRRHOSIS (GAGE HOANG APRN) Past Surgical History: Appendectomy (GAGE HOANG APRN) Smoking Status: Current Every Day Smoker Alcohol Use: None Drug Use: None (GAGE HOANG APRN) General Adult EDM: Chief Complaint: SHORTNESS OF BREATH HPI: HPI: Patient is a 65 year old female with a history of liver cancer who presents to the ED today complaining of 3-day episode of shortness of breath as well as increased abdominal distention. Patient states she use to get paracentesis every 8 months, she states this time she has gone longer than 8 months and feels her abdomen is distended and she is having trouble breathing. Denies any fever. (GAGE HOANG APRN) Review of Systems: Review of Systems: Constitutional: Denies fever or chills. [] Eyes: Denies change in visual acuity. [] HENT: Denies nasal congestion or sore throat. [] Respiratory: Reports shortness of breath. Denies cough Cardiovascular: Denies chest pain or edema. [] GI: Reports abdominal distention. Nausea, vomiting, bloody stools or diarrhea. [] : Denies dysuria. [] Musculoskeletal: Denies back pain or joint pain. [] Integument: Denies rash. [] Neurologic: Denies headache, focal weakness or sensory changes. [] Psychiatric: Denies depression or anxiety. [] (GAGE HOANG APRN) Heart Score: Risk Factors: Risk Factors: DM, Current or recent (<one month) smoker, HTN, HLP, family history of CAD, obesity. Risk Scores: Score 0 - 3: 2.5% MACE over next 6 weeks - Discharge Home Score 4 - 6: 20.3% MACE over next 6 weeks - Admit for Clinical Observation Score 7 - 10: 72.7% MACE over next 6 weeks - Early Invasive Strategies (GAGE HOANG APRN) Current Medications: Current Medications Medications (Trade) Dose Ordered Sig/Candis Start Time Stop Time Status Last Admin Dose Admin Dexamethasone Sodium Phosphate (Decadron) 10 mg 1X ONCE 08/17/20 17:15 08/17/20 17:16 DC 08/17/20 17:16 10 MG Info (CONTRAST GIVEN -- Rx MONITORING) 1 each PRN DAILY PRN 08/17/20 18:00 08/19/20 17:59 Iohexol (Omnipaque 300 Mg/ml) 75 ml 1X ONCE 08/17/20 18:00 08/17/20 18:01 DC Lorazepam (Ativan Inj) 1 mg 1X ONCE 08/17/20 17:15 08/17/20 17:16 DC 08/17/20 17:22 1 MG (MUTUNGA,GAGE EARLY LEARNING TEACHER) Allergies: Allergies: Allergies Coded Allergies Type Severity Reaction Last Updated Verified tetracycline Allergy Intermediate Hives 06/15/19 Yes (MUTUNGA,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 [] HENT: Normocephalic, atraumatic, bilateral external ears normal, oropharynx moist, no oral exudates, nose normal. [] Eyes: PERRLA, EOMI, conjunctiva normal, no discharge. [] Neck: Normal range of motion, no tenderness, supple, no stridor. [] Cardiovascular:Heart rate regular rhythm, no murmur [] Lungs & Thorax: Patient is short of air on arrival to the ED. Sitting in tripod position. Abdomen: Distended abdomen. Bowel sounds normal, soft, no tenderness, no masses, no pulsatile masses. [] Skin: Warm, dry, no erythema, no rash. [] Back: No tenderness, no CVA tenderness. [] Extremities: No tenderness, no cyanosis, no clubbing, ROM intact, no edema. [] Neurologic: Alert and oriented X 3, normal motor function, normal sensory function, no focal deficits noted. [] Psychologic: Affect normal, judgement normal, mood normal. [] (MUTUNGA,GAGE EARLY LEARNING TEACHER) Current Patient Data: Labs: Laboratory Tests Test 08/17/20 16:15 08/17/20 16:45 08/17/20 17:05 White Blood Count 4.1 x10^3/uL (4.0-11.0) Red Blood Count 3.23 x10^6/uL (3.50-5.40) L Hemoglobin 11.1 g/dL (12.0-15.5) L Hematocrit 32.3 % (36.0-47.0) L Mean Corpuscular Volume 100 fL (79-100) Mean Corpuscular Hemoglobin 34 pg (25-35) Mean Corpuscular Hemoglobin Concent 34 g/dL (31-37) Red Cell Distribution Width 15.5 % (11.5-14.5) H Platelet Count 61 x10^3/uL (140-400) L Neutrophils (%) (Auto) 69 % (31-73) Lymphocytes (%) (Auto) 13 % (24-48) L Monocytes (%) (Auto) 15 % (0-9) H Eosinophils (%) (Auto) 3 % (0-3) Basophils (%) (Auto) 1 % (0-3) Neutrophils # (Auto) 2.8 x10^3/uL (1.8-7.7) Lymphocytes # (Auto) 0.5 x10^3/uL (1.0-4.8) L Monocytes # (Auto) 0.6 x10^3/uL (0.0-1.1) Eosinophils # (Auto) 0.1 x10^3/uL (0.0-0.7) Basophils # (Auto) 0.0 x10^3/uL (0.0-0.2) Prothrombin Time 17.7 SEC (11.7-14.0) H Prothrombin Time INR 1.5 (0.8-1.1) H Activated Partial Thromboplast Time 35 SEC (24-38) Lactic Acid Level 1.5 mmol/L (0.4-2.0) Ammonia 53 mcmol/L (11-34) H Influenza Type A Antigen Negative (NEGATIVE) Influenza Type B Antigen Negative (NEGATIVE) Sodium Level 137 mmol/L (136-145) Potassium Level 3.3 mmol/L (3.5-5.1) L Chloride Level 108 mmol/L (98-107) H Carbon Dioxide Level 23 mmol/L (21-32) Anion Gap 6 (6-14) Blood Urea Nitrogen 13 mg/dL (7-20) Creatinine 0.6 mg/dL (0.6-1.0) Estimated GFR (Cockcroft-Gault) 101.0 BUN/Creatinine Ratio 22 (6-20) H Glucose Level 118 mg/dL (70-99) H Calcium Level 7.9 mg/dL (8.5-10.1) L Total Bilirubin 1.6 mg/dL (0.2-1.0) H Aspartate Amino Transferase (AST) 205 U/L (15-37) H Alanine Aminotransferase (ALT) 161 U/L (14-59) H Alkaline Phosphatase 203 U/L (46-116) H Total Protein 8.1 g/dL (6.4-8.2) Albumin 2.1 g/dL (3.4-5.0) L Albumin/Globulin Ratio 0.4 (1.0-1.7) L Laboratory Tests 08/17/20 16:15 Laboratory Tests 08/17/20 17:05 Vital Signs: Vital Signs Date Time Temp Pulse Resp B/P (MAP) Pulse Ox O2 Delivery O2 Flow Rate FiO2 08/17/20 16:25 98.6 86 18 138/79 (98) 96 Room Air 98.6 (GAGE HOANG APRN) EKG: EK Interpreted by Dr. Pendleton SR HR 79 no STEMI[] (GAGE HOANG APRN) Radiology/Procedures: Radiology/Procedures: []PROCEDURE: PORTABLE CHEST 1V XR CHEST 1V History: Reason: SOA / Spl. Instructions: / History: Comparison: June 18, 2019 Findings: Small to moderate right pleural effusion with adjacent opacities. Calcified left lateral pulmonary nodule, likely prior granulomatous disease. Patchy bibasilar opacity, likely atelectasis. No pneumothorax. Normal heart size. Moderate gaseous distention of the stomach. Impression: 1. Small to moderate right pleural effusion with adjacent opacities, may represent atelectasis or consolidation. 2. Moderate distention of the stomach. Electronically signed by: Ritchie Aguirre DO (08/17/2020 4:50 PM) [facility] DICTATED and SIGNED BY: RITCHIE AGUIRRE DO DATE: 08/17/20 [id number] 0 (GAGE HOANG APRN) Course & Med Decision Making: Course & Med Decision Making Pertinent Labs and Imaging studies reviewed. (See chart for details) This is a 65-year-old female patient with history of liver cancer and ascites presenting today complaining of shortness of breath as well as increased swelling to her abdomen, symptoms for 3 days. Last time she had paracentesis she states was more than 8 months ago. She states she used to have paracentesis every 8 months. Denies any fever. Spoke to Dr. Aranda who accepted patient for admission. GI and interventional radiology routine consult placed (GAGE HOANG APRN) Course & Med Decision Making I oversaw on the above date of service of this patient and discussed the care with the [employer]. I agree with the findings, plan of care, and disposition as documented. (IDALMIS BLOAND DO) Dragon Disclaimer: Dragon Disclaimer: This electronic medical record was generated, in whole or in part, using a voice recognition dictation system. (GAGE HOANG APRN) Departure Departure Impression: Primary Impression: Shortness of breath Additional Impression: Ascites Qualified Codes: R18.8 - Other ascites Disposition: 09 ADMITTED INPT THIS HOSP Condition: STABLE Referrals: NO PCP (PCP) GAGE HOANG APRN Aug 17, 2020 18:05 IDALMIS BOLAND DO Aug 18, 2020 18:57
--- NOTE | 2020-08-17 18:30 | PDOC1 ---
History and Physical Date of Service: DOS: DATE: 08/17/20 TIME: 18:22 Chief Complaint: Chief Complain: SOB History of Present Illness: HPI: 65 year old female with a history of liver cancer who presents to the ED today complaining of 3-day episode of shortness of breath as well as increased abdominal distention. Patient states she use to get paracentesis every 8 months, she states this time she has gone longer than 8 months and feels her abdomen is distended and she is having trouble breathing. Denies any fever. Past Medical/Surgical History: PMH/PSH: Past Medical History: Bronchitis, Cancer, Liver Disease, LIVER CA, CIRRHOSIS Past Surgical History: Appendectomy Allergies: Allergies: Coded Allergies: tetracycline (Verified Allergy, Intermediate, Hives, 06/15/19) Family History: Family History: Reviewed with no relevant findings Social History: Social History: Smoking Status: Current Every Day Smoker Alcohol Use: None Drug Use: None Current Medications: Current Medications Current Medications Dexamethasone Sodium Phosphate (Decadron) 10 mg 1X ONCE IV Last administered on 08/17/20at 17:16; Start 08/17/20 at 17:15; Stop 08/17/20 at 17:16; Status DC Lorazepam (Ativan Inj) 1 mg 1X ONCE IVP Last administered on 08/17/20at 17:22; Start 08/17/20 at 17:15; Stop 08/17/20 at 17:16; Status DC Iohexol (Omnipaque 300 Mg/ml) 75 ml 1X ONCE IV Last administered on 08/17/20at 18:11; Start 08/17/20 at 18:00; Stop 08/17/20 at 18:01; Status DC Info (CONTRAST GIVEN -- Rx MONITORING) 1 each PRN DAILY PRN MC SEE COMMENTS; Start 08/17/20 at 18:00; Stop 08/19/20 at 17:59 Active Scripts Active Furosemide 20 Mg Tablet 1 Tab PO DAILY 30 Days Pantoprazole Sodium (Pantoprazole Sodium) 40 Mg Tablet.dr 40 Mg PO DAILYAC 30 Days Aldactone (Spironolactone) 25 Mg Tablet 50 Mg PO DAILY 30 Days Amox Tr-K Clv 500-125 Mg Tab (Amoxicillin/Potassium Clav) 1 Each Tablet 1 Tab PO BID 5 Days ROS: Review of Systems Review of System REVIEW OF SYSTEMS: GENERAL: Denies weakness SKIN: No bruising, hair changes or rashes. EYES: No blurred, double or loss of vision. NOSE AND THROAT: No history of nosebleeds, hoarseness or sore throat. HEART: No history of palpitations, chest pain or shortness of breath on exertion. LUNGS: Denies cough, hemoptysis, wheezing or shortness of breath. GASTROINTESTINAL: Denies changes in appetite, nausea, vomiting, diarrhea or constipation. GENITOURINARY: No history of frequency, urgency, hesitancy or nocturia. NEUROLOGIC: Denies history of numbness, tingling, or tremor. PSYCHIATRIC: No history of panic, anxiety or depression. ENDOCRINE: No history of heat or cold intolerance, polyuria or polydipsia. EXTREMITIES: Denies joint pain, pain on walking or stiffness. Physical Exam: Vital Signs: Vital Signs Date Time Temp Pulse Resp B/P (MAP) Pulse Ox O2 Delivery O2 Flow Rate FiO2 08/17/20 16:25 98.6 86 18 138/79 (98) 96 Room Air 98.6 Physcial Exam: GEN: No apparent distress. Alert and oriented HEENT: Normal cephalic, atraumatic, external auditory canals are patent EYES: Extraocular muscles are intact, pupil are equally round and reactive to light and accommodation MUSCULOSKELETAL: Well developed , well nourished, good range of motion ENDOCRINE: No thyromegaly was palpated LYMPHATICS: No cervical chain or axillary nodes were noted HEMATOPOIETIC: No bruising NECK: Supple, no JVD, no thyromegaly was noted LUNGS: Clear to auscultation in all lung almazan without rhonchi or wheezing HEART: RRR, S!, S2 present. Peripheral pulses intact, no obvious murmurs noted ABDOMEN: Soft, nontender. Positive bowel sounds, no organomegaly, normal bowel sounds EXTREMITIES: Without clubbing, cyanosis, or edema. Pedal pulses intact. Negative Homans sign NEUROLOGIC: Normal speech and tone. A&O x 3, moves all extremities, no obvious focal deficits PSYCHIATRIC: Normal affect, normal mood. Stable SKIN: No ulcerations or rashes, good skin turgor, no jaundice VASCULAR: Good capillary refill, neurovascular bundle appears to be intact Labs: Labs: Laboratory Tests Test 08/17/20 16:15 08/17/20 16:45 08/17/20 17:05 White Blood Count 4.1 x10^3/uL (4.0-11.0) Red Blood Count 3.23 x10^6/uL (3.50-5.40) Hemoglobin 11.1 g/dL (12.0-15.5) Hematocrit 32.3 % (36.0-47.0) Mean Corpuscular Volume 100 fL (79-100) Mean Corpuscular Hemoglobin 34 pg (25-35) Mean Corpuscular Hemoglobin Concent 34 g/dL (31-37) Red Cell Distribution Width 15.5 % (11.5-14.5) Platelet Count 61 x10^3/uL (140-400) Neutrophils (%) (Auto) 69 % (31-73) Lymphocytes (%) (Auto) 13 % (24-48) Monocytes (%) (Auto) 15 % (0-9) Eosinophils (%) (Auto) 3 % (0-3) Basophils (%) (Auto) 1 % (0-3) Neutrophils # (Auto) 2.8 x10^3/uL (1.8-7.7) Lymphocytes # (Auto) 0.5 x10^3/uL (1.0-4.8) Monocytes # (Auto) 0.6 x10^3/uL (0.0-1.1) Eosinophils # (Auto) 0.1 x10^3/uL (0.0-0.7) Basophils # (Auto) 0.0 x10^3/uL (0.0-0.2) Prothrombin Time 17.7 SEC (11.7-14.0) Prothromb Time International Ratio 1.5 (0.8-1.1) Activated Partial Thromboplast Time 35 SEC (24-38) Lactic Acid Level 1.5 mmol/L (0.4-2.0) Ammonia 53 mcmol/L (11-34) Influenza Type A Antigen Negative (NEGATIVE) Influenza Type B Antigen Negative (NEGATIVE) Sodium Level 137 mmol/L (136-145) Potassium Level 3.3 mmol/L (3.5-5.1) Chloride Level 108 mmol/L (98-107) Carbon Dioxide Level 23 mmol/L (21-32) Anion Gap 6 (6-14) Blood Urea Nitrogen 13 mg/dL (7-20) Creatinine 0.6 mg/dL (0.6-1.0) Estimated GFR (Cockcroft-Gault) 101.0 BUN/Creatinine Ratio 22 (6-20) Glucose Level 118 mg/dL (70-99) Calcium Level 7.9 mg/dL (8.5-10.1) Total Bilirubin 1.6 mg/dL (0.2-1.0) Aspartate Amino Transf (AST/SGOT) 205 U/L (15-37) Alanine Aminotransferase (ALT/SGPT) 161 U/L (14-59) Alkaline Phosphatase 203 U/L (46-116) Total Protein 8.1 g/dL (6.4-8.2) Albumin 2.1 g/dL (3.4-5.0) Albumin/Globulin Ratio 0.4 (1.0-1.7) Procalcitonin < 0.10 ng/mL (0.00-0.10) Laboratory Tests Test 08/17/20 16:15 08/17/20 16:45 08/17/20 17:05 White Blood Count 4.1 x10^3/uL (4.0-11.0) Red Blood Count 3.23 x10^6/uL (3.50-5.40) Hemoglobin 11.1 g/dL (12.0-15.5) Hematocrit 32.3 % (36.0-47.0) Mean Corpuscular Volume 100 fL (79-100) Mean Corpuscular Hemoglobin 34 pg (25-35) Mean Corpuscular Hemoglobin Concent 34 g/dL (31-37) Red Cell Distribution Width 15.5 % (11.5-14.5) Platelet Count 61 x10^3/uL (140-400) Neutrophils (%) (Auto) 69 % (31-73) Lymphocytes (%) (Auto) 13 % (24-48) Monocytes (%) (Auto) 15 % (0-9) Eosinophils (%) (Auto) 3 % (0-3) Basophils (%) (Auto) 1 % (0-3) Neutrophils # (Auto) 2.8 x10^3/uL (1.8-7.7) Lymphocytes # (Auto) 0.5 x10^3/uL (1.0-4.8) Monocytes # (Auto) 0.6 x10^3/uL (0.0-1.1) Eosinophils # (Auto) 0.1 x10^3/uL (0.0-0.7) Basophils # (Auto) 0.0 x10^3/uL (0.0-0.2) Prothrombin Time 17.7 SEC (11.7-14.0) Prothromb Time International Ratio 1.5 (0.8-1.1) Activated Partial Thromboplast Time 35 SEC (24-38) Lactic Acid Level 1.5 mmol/L (0.4-2.0) Ammonia 53 mcmol/L (11-34) Influenza Type A Antigen Negative (NEGATIVE) Influenza Type B Antigen Negative (NEGATIVE) Sodium Level 137 mmol/L (136-145) Potassium Level 3.3 mmol/L (3.5-5.1) Chloride Level 108 mmol/L (98-107) Carbon Dioxide Level 23 mmol/L (21-32) Anion Gap 6 (6-14) Blood Urea Nitrogen 13 mg/dL (7-20) Creatinine 0.6 mg/dL (0.6-1.0) Estimated GFR (Cockcroft-Gault) 101.0 BUN/Creatinine Ratio 22 (6-20) Glucose Level 118 mg/dL (70-99) Calcium Level 7.9 mg/dL (8.5-10.1) Total Bilirubin 1.6 mg/dL (0.2-1.0) Aspartate Amino Transf (AST/SGOT) 205 U/L (15-37) Alanine Aminotransferase (ALT/SGPT) 161 U/L (14-59) Alkaline Phosphatase 203 U/L (46-116) Total Protein 8.1 g/dL (6.4-8.2) Albumin 2.1 g/dL (3.4-5.0) Albumin/Globulin Ratio 0.4 (1.0-1.7) Procalcitonin < 0.10 ng/mL (0.00-0.10) Images: Images CXR Impression: 1. Small to moderate right pleural effusion with adjacent opacities, may represent atelectasis or consolidation. 2. Moderate distention of the stomach. 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
--- NOTE | 2020-08-17 18:32 | RAD ---
CT scan of the abdomen and pelvis with contrast 08/17/2020 CLINICAL HISTORY: Abdominal distention. History of liver cancer. TECHNIQUE: After the intravenous administration of 75 cc of Omnipaque 350 100, contiguous, 5 mm axial sections were obtained through the abdomen and pelvis. One or more of the following individualized dose reduction techniques were utilized for this study: 1. Automated exposure control. 2. Adjustment of the mA and/or kV according to patient size. 3. Use of iterative reconstruction technique. FINDINGS: Comparison studies dated 06/15/2019. Images through the lung bases demonstrate a large right pleural effusion. Right middle lobe and right lower lobe atelectasis and/or infiltrate is noted. The liver has a nodular contour consistent with cirrhosis. The spleen is mildly enlarged measuring 14 cm in length. Diminished enhancement on the posterior lateral aspect of the spleen is seen which may represent infarction. The pancreas, adrenal glands and left kidney are within normal limits. Rounded low-attenuation lesions are seen involving lower pole the right kidney which measure 1 cm in size. T hese likely represent cysts. No further imaging evaluation is recommended. Atherosclerotic calcification abdominal aorta is seen. The abdominal aorta tapers normally. A 1.8 cm calcified gallstone is seen within the gallbladder which is contracted. A moderate to large amount of ascites is seen throughout the abdomen. There is no evidence of bowel obstruction. A 4.6 cm umbilica l hernia is seen which contains ascites. Images through the pelvis demonstrate the urinary bladder distended with urine. No adnexal mass is se en. A large amount of ascites is noted. Mild S-shaped curvature of the thoracolumbar spine is seen. D egenerative changes are seen involving the lower thoracic and throughout the lumbar spine along with both hips. IMPRESSION: 1. Large right pleural effusion. 2. . Findings consistent with cirrhosis. There is mild splenomegaly. Diminished enhancement of the po sterior lateral aspect of the spleen is seen which may represent an area of infarction. 3. . Moderate to large amount of ascites. 4. Cholelithiasis. Electronically signed by: Kali Sun MD (08/17/2020 6:29 PM) [id number]
[2020-08-17 18:39] LABS: BILIRUBIN,URINE NEGATIVE (NEG); CLARITY,URINE CLEAR; COLOR,URINE AMBER; NITRITE,URINE NEGATIVE (NEG); PROTEIN,URINE NEGATIVE (NEG-TRACE)
[2020-08-17] MEDS ORDERED: ACETAMINOPHEN 325 MG TABLET. PO PRN ×2 (18:45→20:30)
[2020-08-17] MEDS ORDERED: ONDANSETRON PF 4 MG/2 ML VIAL. IV PRN (18:45)
[2020-08-17 19:04] LABS: BACTERIA,URINE MODERATE /HPF (0-FEW)
[2020-08-17] MEDS ORDERED: FUROSEMIDE 40 MG/4 ML VIAL. IVP ONE (20:30)
[2020-08-17] MEDS ORDERED: DOCUSATE SODIUM 100 MG CAPSULE. PO PRN (20:30)
[2020-08-17] MEDS ORDERED: SENNOSIDES 8.6 MG TABLET PO PRN (20:30)
[2020-08-17] MEDS ORDERED: ONDANSETRON PF 4 MG/2 ML VIAL. IVP PRN (20:30)
[2020-08-17] MEDS ORDERED: DEXTROSE 50% 25 GM / 50ML DISP.SYRIN. IV PRN (20:30)
[2020-08-17] MEDS ORDERED: ENOXAPARIN 40 MG/0.4 ML SYRINGE. SQ SCH (21:00)
[2020-08-17] MEDS ORDERED: POTASSIUM CHLORIDE 20 MEQ TABLET.ER. PO ONE (21:00)
[2020-08-17 23:06] VITALS: BP 134/73
[2020-08-18] MEDS: MORPHINE SULFATE 4 MG/ML VIAL. IV PRN ×2 (02:12→04:29)
[2020-08-18 03:17] VITALS: BP 127/79
[2020-08-18 07:00] VITALS: BP 118/78
[2020-08-18] MEDS ORDERED: IPRATROPIUM/ALBUTEROL 20/100mcg/INH INHALER. INH PRN (08:00)
--- NOTE | 2020-08-18 08:43 | PDOC ---
PROGRESS NOTES Date of Service: DATE: 08/18/20 TIME: 08:43 Chief Complaint Chief Complaint Images: Images CXR Impression: 1. Small to moderate right pleural effusion with adjacent opacities, may represent atelectasis or consolidation. 2. Moderate distention of the stomach. 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 d/c planning 27 min left AMA Justifications for Admission Justifications for Admission Other Justification History of Present Illness History of Present Illness Chief Complaint: Chief Complain: SOB History of Present Illness: HPI: 65 year old female with a history of liver cancer who presents to the ED today complaining of 3-day episode of shortness of breath as well as increased abdominal distention. Patient states she use to get paracentesis every 8 months, she states this time she has gone longer than 8 months and feels her abdomen is distended and she is having trouble breathing. Denies any fever. Past Medical/Surgical History: PMH/PSH: Past Medical History: Bronchitis, Cancer, Liver Disease, LIVER CA, CIRRHOSIS Past Surgical History: Appendectomy Allergies: Allergies: Coded Allergies: tetracycline (Verified Allergy, Intermediate, Hives, 06/15/19) Family History: Family History: Reviewed with no relevant findings Social History: Social History: Smoking Status: Current Every Day Smoker Alcohol Use: None Drug Use: None Vitals Vitals Vital Signs Date Time Temp Pulse Resp B/P (MAP) Pulse Ox O2 Delivery O2 Flow Rate FiO2 08/18/20 04:29 27 Room Air 08/18/20 03:17 97.6 95 127/79 (95) 95 97.6 Physical Exam Physical Exam Physcial Exam: GEN: No apparent distress. Alert and oriented, anxious HEENT: Normal cephalic, atraumatic, external auditory canals are patent EYES: Extraocular muscles are intact, pupil are equally round and reactive to light and accommodation MUSCULOSKELETAL: Well developed , well nourished, good range of motion ENDOCRINE: No thyromegaly was palpated LYMPHATICS: No cervical chain or axillary nodes were noted HEMATOPOIETIC: No bruising NECK: Supple, no JVD, no thyromegaly was noted LUNGS: Clear to auscultation in all lung almazan without rhonchi or wheezing HEART: RRR, S!, S2 present. Peripheral pulses intact, no obvious murmurs noted ABDOMEN: Soft, nontender. Positive bowel sounds, no organomegaly, normal bowel sounds, ascites EXTREMITIES: Without clubbing, cyanosis, or edema. Pedal pulses intact. Negative Homans sign NEUROLOGIC: Normal speech and tone. A&O x 3, moves all extremities, no obvious focal deficits PSYCHIATRIC: Normal affect, normal mood. Stable SKIN: No ulcerations or rashes, good skin turgor, no jaundice VASCULAR: Good capillary refill, neurovascular bundle appears to be intact General: Alert, Cooperative Heart: Regular rate Lungs: Other Labs LABS PATIENT: JOHN NEGRO ACCOUNT: [id number] : 1955 LOCATION: ER AGE: 65 SEX: F EXAM STATUS: REG ER ORD. PHYSICIAN: GAGE HOANG APRN REASON: abd distention hx of liver ca PROCEDURE: CT ABD PELV W/ IV CONTRST ONLY CT scan of the abdomen and pelvis with contrast 08/17/2020 CLINICAL HISTORY: Abdominal distention. History of liver cancer. TECHNIQUE: After the intravenous administration of 75 cc of Omnipaque 350 100, contiguous, 5 mm axial sections were obtained through the abdomen and pelvis. One or more of the following individualized dose reduction techniques were utilized for this study: 1. Automated exposure control. 2. Adjustment of the mA and/or kV according to patient size. 3. Use of iterative reconstruction technique. FINDINGS: Comparison studies dated 06/15/2019. Images through the lung bases demonstrate a large right pleural effusion. Right middle lobe and right lower lobe atelectasis and/or infiltrate is noted. The liver has a nodular contour consistent with cirrhosis. The spleen is mildly enlarged measuring 14 cm in length. Diminished enhancement on the posterior lateral aspect of the spleen is seen which may represent infarction. The pancreas, adrenal glands and left kidney are within normal limits. Rounded low- attenuation lesions are seen involving lower pole the right kidney which measure 1 cm in size. These likely represent cysts. No further imaging evaluation is recommended. Atherosclerotic calcification abdominal aorta is seen. The abdominal aorta tapers normally. A 1.8 cm calcified gallstone is seen within the gallbladder which is contracted. A moderate to large amount of ascites is seen throughout the abdomen. There is no evidence of bowel obstruction. A 4.6 cm umbilical hernia is seen which contains ascites. Images through the pelvis demonstrate the urinary bladder distended with urine. No adnexal mass is seen. A large amount of ascites is noted. Mild S-shaped curvature of the thoracolumbar spine is seen. Degenerative changes are seen involving the lower thoracic and throughout the lumbar spine along with both hips. IMPRESSION: 1. Large right pleural effusion. 2. . Findings consistent with cirrhosis. There is mild splenomegaly. Diminished enhancement of the posterior lateral aspect of the spleen is seen which may represent an area of infarction. 3. . Moderate to large amount of ascites. 4. Cholelithiasis. Electronically signed by: Kali Sun MD (08/17/2020 6:29 PM) [id number] DICTATED and SIGNED BY: KALI SUN MD Laboratory Tests Test 08/17/20 16:15 08/17/20 16:45 08/17/20 17:05 08/17/20 18:27 White Blood Count 4.1 x10^3/uL (4.0-11.0) Red Blood Count 3.23 x10^6/uL (3.50-5.40) Hemoglobin 11.1 g/dL (12.0-15.5) Hematocrit 32.3 % (36.0-47.0) Mean Corpuscular Volume 100 fL (79-100) Mean Corpuscular Hemoglobin 34 pg (25-35) Mean Corpuscular Hemoglobin Concent 34 g/dL (31-37) Red Cell Distribution Width 15.5 % (11.5-14.5) Platelet Count 61 x10^3/uL (140-400) Neutrophils (%) (Auto) 69 % (31-73) Lymphocytes (%) (Auto) 13 % (24-48) Monocytes (%) (Auto) 15 % (0-9) Eosinophils (%) (Auto) 3 % (0-3) Basophils (%) (Auto) 1 % (0-3) Neutrophils # (Auto) 2.8 x10^3/uL (1.8-7.7) Lymphocytes # (Auto) 0.5 x10^3/uL (1.0-4.8) Monocytes # (Auto) 0.6 x10^3/uL (0.0-1.1) Eosinophils # (Auto) 0.1 x10^3/uL (0.0-0.7) Basophils # (Auto) 0.0 x10^3/uL (0.0-0.2) Prothrombin Time 17.7 SEC (11.7-14.0) Prothromb Time International Ratio 1.5 (0.8-1.1) Activated Partial Thromboplast Time 35 SEC (24-38) Lactic Acid Level 1.5 mmol/L (0.4-2.0) Ammonia 53 mcmol/L (11-34) Influenza Type A Antigen Negative (NEGATIVE) Influenza Type B Antigen Negative (NEGATIVE) Sodium Level 137 mmol/L (136-145) Potassium Level 3.3 mmol/L (3.5-5.1) Chloride Level 108 mmol/L (98-107) Carbon Dioxide Level 23 mmol/L (21-32) Anion Gap 6 (6-14) Blood Urea Nitrogen 13 mg/dL (7-20) Creatinine 0.6 mg/dL (0.6-1.0) Estimated GFR (Cockcroft-Gault) 101.0 BUN/Creatinine Ratio 22 (6-20) Glucose Level 118 mg/dL (70-99) Calcium Level 7.9 mg/dL (8.5-10.1) Total Bilirubin 1.6 mg/dL (0.2-1.0) Aspartate Amino Transf (AST/SGOT) 205 U/L (15-37) Alanine Aminotransferase (ALT/SGPT) 161 U/L (14-59) Alkaline Phosphatase 203 U/L (46-116) Total Protein 8.1 g/dL (6.4-8.2) Albumin 2.1 g/dL (3.4-5.0) Albumin/Globulin Ratio 0.4 (1.0-1.7) Procalcitonin < 0.10 ng/mL (0.00-0.10) Urine Collection Type Unknown Urine Color Devi Urine Clarity Clear Urine pH 6.0 (<5.0-8.0) Urine Specific [place] 1.025 (1.000-1.030) Urine Protein Negative mg/dL (NEG-TRACE) Urine Glucose (UA) Negative mg/dL (NEG) Urine Ketones (Stick) Negative mg/dL (NEG) Urine Blood Moderate (NEG) Urine Nitrite Negative (NEG) Urine Bilirubin Negative (NEG) Urine Urobilinogen Dipstick 1.0 mg/dL (0.2 mg/dL) Urine Leukocyte Esterase Small (NEG) Urine RBC 6-10 /HPF (0-2) Urine WBC 5-10 /HPF (0-4) Urine Squamous Epithelial Cells Few /LPF Urine Bacteria Moderate /HPF (0-FEW) Urine Mucus Slight /LPF Assessment and Plan Assessmemt and Plan Problems Medical Problems: (1) Ascites Status: Acute (2) Shortness of breath Status: Acute Comment Review of Relevant I have reviewed the following items ginger (where applicable) has been applied. Labs Laboratory Tests Test 08/17/20 16:15 08/17/20 16:45 08/17/20 17:05 08/17/20 18:27 White Blood Count 4.1 x10^3/uL (4.0-11.0) Red Blood Count 3.23 x10^6/uL (3.50-5.40) Hemoglobin 11.1 g/dL (12.0-15.5) Hematocrit 32.3 % (36.0-47.0) Mean Corpuscular Volume 100 fL (79-100) Mean Corpuscular Hemoglobin 34 pg (25-35) Mean Corpuscular Hemoglobin Concent 34 g/dL (31-37) Red Cell Distribution Width 15.5 % (11.5-14.5) Platelet Count 61 x10^3/uL (140-400) Neutrophils (%) (Auto) 69 % (31-73) Lymphocytes (%) (Auto) 13 % (24-48) Monocytes (%) (Auto) 15 % (0-9) Eosinophils (%) (Auto) 3 % (0-3) Basophils (%) (Auto) 1 % (0-3) Neutrophils # (Auto) 2.8 x10^3/uL (1.8-7.7) Lymphocytes # (Auto) 0.5 x10^3/uL (1.0-4.8) Monocytes # (Auto) 0.6 x10^3/uL (0.0-1.1) Eosinophils # (Auto) 0.1 x10^3/uL (0.0-0.7) Basophils # (Auto) 0.0 x10^3/uL (0.0-0.2) Prothrombin Time 17.7 SEC (11.7-14.0) Prothromb Time International Ratio 1.5 (0.8-1.1) Activated Partial Thromboplast Time 35 SEC (24-38) Lactic Acid Level 1.5 mmol/L (0.4-2.0) Ammonia 53 mcmol/L (11-34) Influenza Type A Antigen Negative (NEGATIVE) Influenza Type B Antigen Negative (NEGATIVE) Sodium Level 137 mmol/L (136-145) Potassium Level 3.3 mmol/L (3.5-5.1) Chloride Level 108 mmol/L (98-107) Carbon Dioxide Level 23 mmol/L (21-32) Anion Gap 6 (6-14) Blood Urea Nitrogen 13 mg/dL (7-20) Creatinine 0.6 mg/dL (0.6-1.0) Estimated GFR (Cockcroft-Gault) 101.0 BUN/Creatinine Ratio 22 (6-20) Glucose Level 118 mg/dL (70-99) Calcium Level 7.9 mg/dL (8.5-10.1) Total Bilirubin 1.6 mg/dL (0.2-1.0) Aspartate Amino Transf (AST/SGOT) 205 U/L (15-37) Alanine Aminotransferase (ALT/SGPT) 161 U/L (14-59) Alkaline Phosphatase 203 U/L (46-116) Total Protein 8.1 g/dL (6.4-8.2) Albumin 2.1 g/dL (3.4-5.0) Albumin/Globulin Ratio 0.4 (1.0-1.7) Procalcitonin < 0.10 ng/mL (0.00-0.10) Urine Collection Type Unknown Urine Color Devi Urine Clarity Clear Urine pH 6.0 (<5.0-8.0) Urine Specific [place] 1.025 (1.000-1.030) Urine Protein Negative mg/dL (NEG-TRACE) Urine Glucose (UA) Negative mg/dL (NEG) Urine Ketones (Stick) Negative mg/dL (NEG) Urine Blood Moderate (NEG) Urine Nitrite Negative (NEG) Urine Bilirubin Negative (NEG) Urine Urobilinogen Dipstick 1.0 mg/dL (0.2 mg/dL) Urine Leukocyte Esterase Small (NEG) Urine RBC 6-10 /HPF (0-2) Urine WBC 5-10 /HPF (0-4) Urine Squamous Epithelial Cells Few /LPF Urine Bacteria Moderate /HPF (0-FEW) Urine Mucus Slight /LPF Laboratory Tests Test 08/17/20 16:15 08/17/20 16:45 08/17/20 17:05 08/17/20 18:27 White Blood Count 4.1 x10^3/uL (4.0-11.0) Red Blood Count 3.23 x10^6/uL (3.50-5.40) Hemoglobin 11.1 g/dL (12.0-15.5) Hematocrit 32.3 % (36.0-47.0) Mean Corpuscular Volume 100 fL (79-100) Mean Corpuscular Hemoglobin 34 pg (25-35) Mean Corpuscular Hemoglobin Concent 34 g/dL (31-37) Red Cell Distribution Width 15.5 % (11.5-14.5) Platelet Count 61 x10^3/uL (140-400) Neutrophils (%) (Auto) 69 % (31-73) Lymphocytes (%) (Auto) 13 % (24-48) Monocytes (%) (Auto) 15 % (0-9) Eosinophils (%) (Auto) 3 % (0-3) Basophils (%) (Auto) 1 % (0-3) Neutrophils # (Auto) 2.8 x10^3/uL (1.8-7.7) Lymphocytes # (Auto) 0.5 x10^3/uL (1.0-4.8) Monocytes # (Auto) 0.6 x10^3/uL (0.0-1.1) Eosinophils # (Auto) 0.1 x10^3/uL (0.0-0.7) Basophils # (Auto) 0.0 x10^3/uL (0.0-0.2) Prothrombin Time 17.7 SEC (11.7-14.0) Prothromb Time International Ratio 1.5 (0.8-1.1) Activated Partial Thromboplast Time 35 SEC (24-38) Lactic Acid Level 1.5 mmol/L (0.4-2.0) Ammonia 53 mcmol/L (11-34) Influenza Type A Antigen Negative (NEGATIVE) Influenza Type B Antigen Negative (NEGATIVE) Sodium Level 137 mmol/L (136-145) Potassium Level 3.3 mmol/L (3.5-5.1) Chloride Level 108 mmol/L (98-107) Carbon Dioxide Level 23 mmol/L (21-32) Anion Gap 6 (6-14) Blood Urea Nitrogen 13 mg/dL (7-20) Creatinine 0.6 mg/dL (0.6-1.0) Estimated GFR (Cockcroft-Gault) 101.0 BUN/Creatinine Ratio 22 (6-20) Glucose Level 118 mg/dL (70-99) Calcium Level 7.9 mg/dL (8.5-10.1) Total Bilirubin 1.6 mg/dL (0.2-1.0) Aspartate Amino Transf (AST/SGOT) 205 U/L (15-37) Alanine Aminotransferase (ALT/SGPT) 161 U/L (14-59) Alkaline Phosphatase 203 U/L (46-116) Total Protein 8.1 g/dL (6.4-8.2) Albumin 2.1 g/dL (3.4-5.0) Albumin/Globulin Ratio 0.4 (1.0-1.7) Procalcitonin < 0.10 ng/mL (0.00-0.10) Urine Collection Type Unknown Urine Color Devi Urine Clarity Clear Urine pH 6.0 (<5.0-8.0) Urine Specific [place] 1.025 (1.000-1.030) Urine Protein Negative mg/dL (NEG-TRACE) Urine Glucose (UA) Negative mg/dL (NEG) Urine Ketones (Stick) Negative mg/dL (NEG) Urine Blood Moderate (NEG) Urine Nitrite Negative (NEG) Urine Bilirubin Negative (NEG) Urine Urobilinogen Dipstick 1.0 mg/dL (0.2 mg/dL) Urine Leukocyte Esterase Small (NEG) Urine RBC 6-10 /HPF (0-2) Urine WBC 5-10 /HPF (0-4) Urine Squamous Epithelial Cells Few /LPF Urine Bacteria Moderate /HPF (0-FEW) Urine Mucus Slight /LPF Medications Current Medications Dexamethasone Sodium Phosphate (Decadron) 10 mg 1X ONCE IV Last administered on 08/17/20at 17:16; Start 08/17/20 at 17:15; Stop 08/17/20 at 17:16; Status DC Lorazepam (Ativan Inj) 1 mg 1X ONCE IVP Last administered on 08/17/20at 17:22; Start 08/17/20 at 17:15; Stop 08/17/20 at 17:16; Status DC Iohexol (Omnipaque 300 Mg/ml) 75 ml 1X ONCE IV Last administered on 08/17/20at 18:11; Start 08/17/20 at 18:00; Stop 08/17/20 at 18:01; Status DC Info (CONTRAST GIVEN -- Rx MONITORING) 1 each PRN DAILY PRN MC SEE COMMENTS; Start 08/17/20 at 18:00; Stop 08/19/20 at 17:59 Ondansetron HCl (Zofran) 4 mg PRN Q8HRS PRN IV NAUSEA/VOMITING; Start 08/17/20 at 18:45; Stop 08/18/20 at 18:44 Morphine Sulfate (Morphine Sulfate) 4 mg PRN Q2HR PRN IV PAIN Last administered on 08/18/20at 04:29; Start 08/17/20 at 18:45; Stop 08/18/20 at 18:44 Acetaminophen (Tylenol) 650 mg PRN Q4HRS PRN PO FEVER > 100.3'F; Start 08/17/20 at 18:45; Stop 08/18/20 at 18:44 Furosemide (Lasix) 40 mg 1X ONCE IVP Last administered on 08/17/20at 20:50; Start 08/17/20 at 20:30; Stop 08/17/20 at 20:31; Status DC Potassium Chloride (Klor-Con) 40 meq BID ONCE PO Last administered on 08/17at 20:50; Start 08/17/20 at 21:00; Stop 08/17/20 at 21:01; Status DC Sennosides (Senna) 17.2 mg PRN BID PRN PO CONSTIPATION; Start 08/17/20 at 20:30 Docusate Sodium (Colace) 100 mg PRN DAILY PRN PO HARD STOOLS; Start 08/17/20 at 20:30 Ondansetron HCl (Zofran) 4 mg PRN Q6HRS PRN IVP NAUSEA/VOMITING; Start 08/17/20 at 20:30 Dextrose (Dextrose 50%-Water Syringe) 12.5 gm PRN Q15MIN PRN IV SEE COMMENTS; Start 08/17/20 at 20:30 Acetaminophen (Tylenol) 650 mg PRN Q4HRS PRN PO TEMP OVER 100.4F OR MILD PAIN; Start 08/17/20 at 20:30 Enoxaparin Sodium (Lovenox 40mg Syringe) 40 mg Q24H SQ Last administered on 08/17/20at 20:49; Start 08/17/20 at 21:00 Albuterol/ Ipratropium (Combivent Respimat 20-100 Mcg) 1 puff PRN Q6HRS PRN INH WHEEZES; Start 08/18/20 at 08:00 Active Scripts Active Vitals/I & O Vital Sign - Last 24 Hours 08/17/20 08/17/20 08/17/20 08/17/20 16:25 17:30 18:30 19:30 Temp 98.6 98.6 Pulse 86 70 86 82 Resp 18 18 18 18 B/P (MAP) 138/79 (98) 159/88 (111) 137/72 (93) 147/73 (97) Pulse Ox 96 91 97 96 O2 Delivery Room Air Room Air Room Air Room Air 08/17/20 08/17/20 08/18/20 08/18/20 20:30 23:06 02:12 02:34 Temp 98.3 98.3 Pulse 88 96 Resp 21 B/P (MAP) 138/79 (98) 134/73 (93) Pulse Ox 97 94 O2 Delivery Room Air Room Air Room Air Room Air 08/18/20 08/18/20 08/18/20 02:40 03:17 04:29 Temp 97.6 97.6 Pulse 95 Resp 22 20 27 B/P (MAP) 127/79 (95) Pulse Ox 95 O2 Delivery Room Air Room Air Room Air Intake and Output 08/17/20 08/17/20 08/18/20 15:00 23:00 07:00 Intake Total 310 ml Balance 310 ml Justicifation of Admission Dx: Justifications for Admission: Justification of Admission Dx: N/A ZAIDA KHALIL MD Aug 18, 2020 08:43
[2020-08-18 09:10] LABS: BASO % 0 % (0-3); EOS % 0 % (0-3); HEMATOCRIT 35.2 % (36.0-47.0); HEMOGLOBIN 11.8 g/dL (12.0-15.5); LYMPH # 0.3 x10^3/uL (1.0-4.8); LYMPH % 9 % (24-48); MEAN CORPUSCULAR HEMOGLOBIN 34 pg (25-35); MEAN CORPUSCULAR HGB CONC 34 g/dL (31-37); MEAN CORPUSCULAR VOLUME 100 fL (79-100); MONO # 0.1 x10^3/uL (0.0-1.1); MONO % 4 % (0-9); NEUT # 3.3 x10^3/uL (1.8-7.7); NEUT % 88 % (31-73); PLATELET COUNT 55 x10^3/uL (140-400); RED BLOOD COUNT 3.51 x10^6/uL (3.50-5.40); RED CELL DISTRIBUTION WIDTH 15.4 % (11.5-14.5); WHITE BLOOD COUNT 3.8 x10^3/uL (4.0-11.0)
[2020-08-18 09:47] LABS: ALBUMIN 2.4 g/dL (3.4-5.0); ALBUMIN/GLOBULIN RATIO 0.4 (1.0-1.7); CALCIUM 8.2 mg/dL (8.5-10.1); CREATININE 0.7 mg/dL (0.6-1.0); GFR 84.5; POTASSIUM 4.3 mmol/L (3.5-5.1); TOTAL BILIRUBIN 1.7 mg/dL (0.2-1.0); TOTAL PROTEIN 9.1 g/dL (6.4-8.2)
--- NOTE | 2020-08-18 09:47 | PDOC2 ---
GI CONSULT Date of Service: DATE: 08/18/20 TIME: 09:47 Reason For Consult: ascites HPI: HPI: 65 y/o female who we've seen in the past. Chart indicates here w/ SOA and abdominal distention. H/o Hep C cirrhosis (PCR+ 06/2019). Chart mentions "liver cancer" - AFP normal 06/2019. Has been seen at - not sure when. H/o ascites - had paracentesis here in 2019. Suggested spironolactone and [id number] diet then along w/ outpt EGD and colonoscopy. Per past encounter, no previous 'scopes. Cholelithiasis on past and current imaging. ACD/MORIAH in 06/2019. She's upset this morning - not interested in talking to me, won't answer my questions, wants to leave, cursing. Does tell me she takes no meds and says she hasn't seen any doctors because of the pandemic. PMH: PMH: appendectomy FH: Family History: DM Social History: Smoke: <1 pack per day ALCOHOL: none Drugs: None ROS: Per HPI. Vitals: Vitals: Vital Signs Date Time Temp Pulse Resp B/P (MAP) Pulse Ox O2 Delivery O2 Flow Rate FiO2 08/18/20 07:00 97.5 85 23 118/78 (91) 94 Room Air 97.5 Labs: Labs: Laboratory Tests Test 08/17/20 16:15 08/17/20 16:45 08/17/20 17:05 08/17/20 18:27 White Blood Count 4.1 x10^3/uL (4.0-11.0) Red Blood Count 3.23 x10^6/uL (3.50-5.40) Hemoglobin 11.1 g/dL (12.0-15.5) Hematocrit 32.3 % (36.0-47.0) Mean Corpuscular Volume 100 fL (79-100) Mean Corpuscular Hemoglobin 34 pg (25-35) Mean Corpuscular Hemoglobin Concent 34 g/dL (31-37) Red Cell Distribution Width 15.5 % (11.5-14.5) Platelet Count 61 x10^3/uL (140-400) Neutrophils (%) (Auto) 69 % (31-73) Lymphocytes (%) (Auto) 13 % (24-48) Monocytes (%) (Auto) 15 % (0-9) Eosinophils (%) (Auto) 3 % (0-3) Basophils (%) (Auto) 1 % (0-3) Neutrophils # (Auto) 2.8 x10^3/uL (1.8-7.7) Lymphocytes # (Auto) 0.5 x10^3/uL (1.0-4.8) Monocytes # (Auto) 0.6 x10^3/uL (0.0-1.1) Eosinophils # (Auto) 0.1 x10^3/uL (0.0-0.7) Basophils # (Auto) 0.0 x10^3/uL (0.0-0.2) Prothrombin Time 17.7 SEC (11.7-14.0) Prothromb Time International Ratio 1.5 (0.8-1.1) Activated Partial Thromboplast Time 35 SEC (24-38) Lactic Acid Level 1.5 mmol/L (0.4-2.0) Ammonia 53 mcmol/L (11-34) Influenza Type A Antigen Negative (NEGATIVE) Influenza Type B Antigen Negative (NEGATIVE) Sodium Level 137 mmol/L (136-145) Potassium Level 3.3 mmol/L (3.5-5.1) Chloride Level 108 mmol/L (98-107) Carbon Dioxide Level 23 mmol/L (21-32) Anion Gap 6 (6-14) Blood Urea Nitrogen 13 mg/dL (7-20) Creatinine 0.6 mg/dL (0.6-1.0) Estimated GFR (Cockcroft-Gault) 101.0 BUN/Creatinine Ratio 22 (6-20) Glucose Level 118 mg/dL (70-99) Calcium Level 7.9 mg/dL (8.5-10.1) Total Bilirubin 1.6 mg/dL (0.2-1.0) Aspartate Amino Transf (AST/SGOT) 205 U/L (15-37) Alanine Aminotransferase (ALT/SGPT) 161 U/L (14-59) Alkaline Phosphatase 203 U/L (46-116) Total Protein 8.1 g/dL (6.4-8.2) Albumin 2.1 g/dL (3.4-5.0) Albumin/Globulin Ratio 0.4 (1.0-1.7) Procalcitonin < 0.10 ng/mL (0.00-0.10) Urine Collection Type Unknown Urine Color Devi Urine Clarity Clear Urine pH 6.0 (<5.0-8.0) Urine Specific [place] 1.025 (1.000-1.030) Urine Protein Negative mg/dL (NEG-TRACE) Urine Glucose (UA) Negative mg/dL (NEG) Urine Ketones (Stick) Negative mg/dL (NEG) Urine Blood Moderate (NEG) Urine Nitrite Negative (NEG) Urine Bilirubin Negative (NEG) Urine Urobilinogen Dipstick 1.0 mg/dL (0.2 mg/dL) Urine Leukocyte Esterase Small (NEG) Urine RBC 6-10 /HPF (0-2) Urine WBC 5-10 /HPF (0-4) Urine Squamous Epithelial Cells Few /LPF Urine Bacteria Moderate /HPF (0-FEW) Urine Mucus Slight /LPF Test 08/18/20 08:25 White Blood Count 3.8 x10^3/uL (4.0-11.0) Red Blood Count 3.51 x10^6/uL (3.50-5.40) Hemoglobin 11.8 g/dL (12.0-15.5) Hematocrit 35.2 % (36.0-47.0) Mean Corpuscular Volume 100 fL (79-100) Mean Corpuscular Hemoglobin 34 pg (25-35) Mean Corpuscular Hemoglobin Concent 34 g/dL (31-37) Red Cell Distribution Width 15.4 % (11.5-14.5) Platelet Count 55 x10^3/uL (140-400) Neutrophils (%) (Auto) 88 % (31-73) Lymphocytes (%) (Auto) 9 % (24-48) Monocytes (%) (Auto) 4 % (0-9) Eosinophils (%) (Auto) 0 % (0-3) Basophils (%) (Auto) 0 % (0-3) Neutrophils # (Auto) 3.3 x10^3/uL (1.8-7.7) Lymphocytes # (Auto) 0.3 x10^3/uL (1.0-4.8) Monocytes # (Auto) 0.1 x10^3/uL (0.0-1.1) Eosinophils # (Auto) 0.0 x10^3/uL (0.0-0.7) Basophils # (Auto) 0.0 x10^3/uL (0.0-0.2) Allergies: Coded Allergies: tetracycline (Verified Allergy, Intermediate, Hives, 06/15/19) Medications: Current Medications Medications (Trade) Dose Ordered Sig/Candis Route PRN Reason Start Time Stop Time Status Last Admin Dose Admin Dexamethasone Sodium Phosphate (Decadron) 10 mg 1X ONCE IV 08/17/20 17:15 08/17/20 17:16 DC 08/17/20 17:16 Lorazepam (Ativan Inj) 1 mg 1X ONCE IVP 08/17/20 17:15 08/17/20 17:16 DC 08/17/20 17:22 Iohexol (Omnipaque 300 Mg/ml) 75 ml 1X ONCE IV 08/17/20 18:00 08/17/20 18:01 DC 08/17/20 18:11 Morphine Sulfate (Morphine Sulfate) 4 mg PRN Q2HR PRN IV PAIN 08/17/20 18:45 08/18/20 18:44 08/18/20 04:29 Furosemide (Lasix) 40 mg 1X ONCE IVP 08/17/20 20:30 08/17/20 20:31 DC 08/17/20 20:50 Potassium Chloride (Klor-Con) 40 meq BID ONCE PO 08/17/20 21:00 08/17/20 21:01 DC 08/17/20 20:50 Enoxaparin Sodium (Lovenox 40mg Syringe) 40 mg Q24H SQ 08/17/20 21:00 08/17/20 20:49 Imaging: Imaging: CXR Impression: 1. Small to moderate right pleural effusion with adjacent opacities, may represent atelectasis or consolidation. 2. Moderate distention of the stomach. CT A/P IMPRESSION: 1. Large right pleural effusion. 2. . Findings consistent with cirrhosis. There is mild splenomegaly. Diminished enhancement of the posterior lateral aspect of the spleen is seen which may represent an area of infarction. 3. . Moderate to large amount of ascites. 4. Cholelithiasis. PE: She's very upset - visual exam done in COVID isolation. GEN: in chair leaning forward HEENT: Atraumatic LUNGS: audible wheezing HEART: RRR per chart/monitor ABD: distended EXTREMITY: difficult to evaluate NEURO/PSYCH: angry A/P: A/P: Pleural effusion, ascites Hep C cirrhosis Leukopenia, ACD/MORIAH, thrombocytopenia, coagulopathy, elevated LFTs CRC screen - none Cholelithiasis Flu and rapid COVID negative -- Plans for thoracentesis and paracentesis. Didn't establish much with her this morning - will return later w/ Dr. Phan. Consider TIPS. Seems like compliance is an issue. SARA ESPINOZA Aug 18, 2020 09:47
[2020-08-18 10:23] LABS: PHOSPHORUS 2.5 mg/dL (2.6-4.7)
[2020-08-18 10:40] LABS: % BANDS 2 % (0-9); % LYMPHS 2 % (24-48); % MONOS 4 % (0-10); % SEGS 92 % (35-66); PLT ESTIMATE DECREASED (ADEQUATE)
[2020-08-18] MEDS ORDERED: LIDOCAINE WITH 8.4% SOD BICARB 3 ML DISP.SYRIN. ONE (10:46)
[2020-08-18 11:00] VITALS: BP 123/63
[2020-08-18] MEDS ORDERED: LIDOCAINE WITH 8.4% SOD BICARB 3 ML DISP.SYRIN. INJ ONE (11:00)
[2020-08-18 11:14] VITALS: BP 118/58
[2020-08-18 11:28] VITALS: BP 124/66
--- NOTE | 2020-08-18 13:00 | RAD ---
Procedure: Ultrasound guided paracentesis Clinical Indication: Adult female with abdominal ascites Sedation: Local anesthesia only Antibiotics: None Fluoro Time: None Contrast: Not applicable Sterility: The procedure was performed in its entirety using appropriate elements of sterile technique. Consent: The procedure was explained in its entirety to the patient or the patients designated sales representative supervisor by a member of the treatment team, including a discussion of the risks, benefits and commonly accepted alternatives to the procedure, as well as the expected consequences of no therapy whatsoever. Discussion of the risks included, but was not limited to, those that are most frequent and those that are rare but possibly severe or life-threatening, as well as the possibility of unforeseen complications. Technique and Findings: Following informed consent, the patient was prepped and draped in the usual sterile fashion. Ultrasound interrogation of the abdomen revealed abdominal ascites. A hard copy ultrasound image was recorded. 1% Lidocaine was used to achieve local anesthesia over the area of interest, and a 6 [place] [id number]-X-Pwplmvnc catheter was advanced into the peritoneal cavity under ultrasound guidance. 500 cc of thin sigrid ascites was then withdrawn. The catheter was removed and hemostasis was achieved with manual compression. Complications: No immediate Impression: 1. Ultrasound-guided paracentesis as described
--- NOTE | 2020-08-18 13:00 | RAD ---
Ultrasound Guided Thoracentesis, right side Indication: Adult female with pleural effusion Sedation: Local anesthesia only. Sterility: The procedure was performed in its entirety using appropriate elements of sterile technique. Technique and Findings: Following informed consent, the patient was prepped and draped in the usual sterile fashion. Ultrasound interrogation of the area of interest was performed revealing the presence of a pleural fluid collection. 1% Lidocaine was used to achieve local anesthesia over the area of interest. A small dermatotomy was made and a 5F [id number] catheter was advanced under ultrasound guidance into the pleural space and 1400 cc's of thin sigrid fluid was removed. The catheter was then removed and hemostasis was achieved with manual compression. Impression: US thoracentesis as described.
--- NOTE | 2020-08-18 13:03 | RAD ---
Portable chest x-ray compared to similar exam dated August 17, 2020 for status post right thoracente sis. FINDINGS: There is reduction in the large right pleural effusion. Moderate pleural effusion persists. Coarse interstitial changes are stable. Heart size mildly enlarged. No new lung parenchymal abnormal ities. No pneumothorax. IMPRESSION: 1. Persistent right moderate effusion, smaller status post thoracentesis. Electronically signed by: Tereso Falcon MD (08/18/2020 1:01 PM) [id number]
--- NOTE | 2020-08-18 13:18 | PDOC3 ---
Discharge Summary Date of Admission: Aug 17, 2020 Date of Discharge: Aug 18, 2020 Follow-Up: Other (left ama) Admitting Diagnosis comment: Images: Images CXR Impression: 1. Small to moderate right pleural effusion with adjacent opacities, may repres ent atelectasis or consolidation. 2. Moderate distention of the stomach. 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 d/c planning 27 min left AMA Justifications for Admission Justifications for Admission Other Justification History of Present Illness History of Present Illness Chief Complaint: Chief Complain: SOB History of Present Illness: HPI: 65 year old female with a history of liver cancer who presents to the ED 08-17 complaining of 3-day episode of shortness of breath as well as increased abdominal distention. Patient states she use to get paracentesis every 8 months, she states this time she has gone longer than 8 months and feels her abdomen is distended and she is having trouble breathing. Denies any fever.leaving AMA D/W RN Past Medical/Surgical History: PMH/PSH: Past Medical History: Bronchitis, Cancer, Liver Disease, LIVER CA, CIRRHOSIS Past Surgical History: Appendectomy Allergies: Allergies: Coded Allergies: tetracycline (Verified Allergy, Intermediate, Hives, 06/15/19) Family History: Family History: Reviewed with no relevant findings Social History: Social History: Smoking Status: Current Every Day Smoker Alcohol Use: None Drug Use: None Vitals Vitals Vital Signs Date Time Temp Pulse Resp B/P (MAP) Pulse Ox O2 Delivery O2 Flow Rate FiO2 08/18/20 04:29 27 Room Air 08/18/20 03:17 97.6 95 127/79 (95) 95 97.6 Physical Exam Physical Exam Physcial Exam: GEN: No apparent distress. Alert and oriented, anxious HEENT: Normal cephalic, atraumatic, external auditory canals are patent EYES: Extraocular muscles are intact, pupil are equally round and reactive to light and accommodation MUSCULOSKELETAL: Well developed , well nourished, good range of motion ENDOCRINE: No thyromegaly was palpated LYMPHATICS: No cervical chain or axillary nodes were noted HEMATOPOIETIC: No bruising NECK: Supple, no JVD, no thyromegaly was noted LUNGS: Clear to auscultation in all lung almazan without rhonchi or wheezing HEART: RRR, S!, S2 present. Peripheral pulses intact, no obvious murmurs noted ABDOMEN: Soft, nontender. Positive bowel sounds, no organomegaly, normal bowel sounds, ascites EXTREMITIES: Without clubbing, cyanosis, or edema. Pedal pulses intact. Negative Homans sign NEUROLOGIC: Normal speech and tone. A&O x 3, moves all extremities, no obvious focal deficits PSYCHIATRIC: Normal affect, normal mood. Stable SKIN: No ulcerations or rashes, good skin turgor, no jaundice VASCULAR: Good capillary refill, neurovascular bundle appears to be intact General: Alert, Cooperative Heart: Regular rate Lungs: Other FINAL DIAGNOSIS Problems Medical Problems: (1) Ascites Status: Acute (2) Shortness of breath Status: Acute Brief Hospital Course Ms. Penny is a 65 old [sex] who presented with [ascites ] CONDITION AT DISCHARGE: Comment (left ama) Discharge Medications Current Medications Dexamethasone Sodium Phosphate (Decadron) 10 mg 1X ONCE IV Last administered on 08/17/20at 17:16; Start 08/17/20 at 17:15; Stop 08/17/20 at 17:16; Status DC Lorazepam (Ativan Inj) 1 mg 1X ONCE IVP Last administered on 08/17/20at 17:22; Start 08/17/20 at 17:15; Stop 08/17/20 at 17:16; Status DC Iohexol (Omnipaque 300 Mg/ml) 75 ml 1X ONCE IV Last administered on 08/17/20at 18:11; Start 08/17/20 at 18:00; Stop 08/17/20 at 18:01; Status DC Info (CONTRAST GIVEN -- Rx MONITORING) 1 each PRN DAILY PRN MC SEE COMMENTS; Start 08/17/20 at 18:00; Stop 08/19/20 at 17:59 Ondansetron HCl (Zofran) 4 mg PRN Q8HRS PRN IV NAUSEA/VOMITING; Start 08/17/20 at 18:45; Stop 08/18/20 at 18:44 Morphine Sulfate (Morphine Sulfate) 4 mg PRN Q2HR PRN IV PAIN Last administered on 08/18/20at 04:29; Start 08/17/20 at 18:45; Stop 08/18/20 at 18:44 Acetaminophen (Tylenol) 650 mg PRN Q4HRS PRN PO FEVER > 100.3'F; Start 08/17/20 at 18:45; Stop 08/18/20 at 18:44 Furosemide (Lasix) 40 mg 1X ONCE IVP Last administered on 08/17/20at 20:50; Start 08/17/20 at 20:30; Stop 08/17/20 at 20:31; Status DC Potassium Chloride (Klor-Con) 40 meq BID ONCE PO Last administered on 08/17/20at 20:50; Start 08/17/20 at 21:00; Stop 08/17/20 at 21:01; Status DC Sennosides (Senna) 17.2 mg PRN BID PRN PO CONSTIPATION; Start 08/17/20 at 20:30 Docusate Sodium (Colace) 100 mg PRN DAILY PRN PO HARD STOOLS; Start 08/17/20 at 20:30 Ondansetron HCl (Zofran) 4 mg PRN Q6HRS PRN IVP NAUSEA/VOMITING; Start 08/17/20 at 20:30 Dextrose (Dextrose 50%-Water Syringe) 12.5 gm PRN Q15MIN PRN IV SEE COMMENTS; Start 08/17/20 at 20:30 Acetaminophen (Tylenol) 650 mg PRN Q4HRS PRN PO TEMP OVER 100.4F OR MILD PAIN; Start 08/17/20 at 20:30 Enoxaparin Sodium (Lovenox 40mg Syringe) 40 mg Q24H SQ Last administered on 08/17/20at 20:49; Start 08/17/20 at 21:00 Albuterol/ Ipratropium (Combivent Respimat 20-100 Mcg) 1 puff PRN Q6HRS PRN INH WHEEZES; Start 08/18/20 at 08:00 Lidocaine HCl (Buffered Lidocaine 1%) 3 ml STK-MED ONCE .ROUTE ; Start 08/18/20 at 10:46; Stop 08/18/20 at 10:46; Status DC Lidocaine HCl (Buffered Lidocaine 1%) 12 ml 1X ONCE INJ Last administered on 08/18/20at 11:00; Start 08/18/20 at 11:00; Stop 08/18/20 at 11:01; Status DC Active Scripts Active Vital Signs Vital Signs Date Time Temp Pulse Resp B/P (MAP) Pulse Ox O2 Delivery O2 Flow Rate FiO2 08/18/20 11:28 80 22 124/66 (85) 97 Room Air 08/18/20 07:00 97.5 97.5 Labs Laboratory Tests Test 08/17/20 16:15 08/17/20 16:45 08/17/20 17:05 08/17/20 18:27 White Blood Count 4.1 x10^3/uL (4.0-11.0) Red Blood Count 3.23 x10^6/uL (3.50-5.40) Hemoglobin 11.1 g/dL (12.0-15.5) Hematocrit 32.3 % (36.0-47.0) Mean Corpuscular Volume 100 fL (79-100) Mean Corpuscular Hemoglobin 34 pg (25-35) Mean Corpuscular Hemoglobin Concent 34 g/dL (31-37) Red Cell Distribution Width 15.5 % (11.5-14.5) Platelet Count 61 x10^3/uL (140-400) Neutrophils (%) (Auto) 69 % (31-73) Lymphocytes (%) (Auto) 13 % (24-48) Monocytes (%) (Auto) 15 % (0-9) Eosinophils (%) (Auto) 3 % (0-3) Basophils (%) (Auto) 1 % (0-3) Neutrophils # (Auto) 2.8 x10^3/uL (1.8-7.7) Lymphocytes # (Auto) 0.5 x10^3/uL (1.0-4.8) Monocytes # (Auto) 0.6 x10^3/uL (0.0-1.1) Eosinophils # (Auto) 0.1 x10^3/uL (0.0-0.7) Basophils # (Auto) 0.0 x10^3/uL (0.0-0.2) Prothrombin Time 17.7 SEC (11.7-14.0) Prothromb Time International Ratio 1.5 (0.8-1.1) Activated Partial Thromboplast Time 35 SEC (24-38) Lactic Acid Level 1.5 mmol/L (0.4-2.0) Coronavirus (PCR) Not detected (Not Detected) Ammonia 53 mcmol/L (11-34) Influenza Type A Antigen Negative (NEGATIVE) Influenza Type B Antigen Negative (NEGATIVE) Sodium Level 137 mmol/L (136-145) Potassium Level 3.3 mmol/L (3.5-5.1) Chloride Level 108 mmol/L (98-107) Carbon Dioxide Level 23 mmol/L (21-32) Anion Gap 6 (6-14) Blood Urea Nitrogen 13 mg/dL (7-20) Creatinine 0.6 mg/dL (0.6-1.0) Estimated GFR (Cockcroft-Gault) 101.0 BUN/Creatinine Ratio 22 (6-20) Glucose Level 118 mg/dL (70-99) Calcium Level 7.9 mg/dL (8.5-10.1) Total Bilirubin 1.6 mg/dL (0.2-1.0) Aspartate Amino Transf (AST/SGOT) 205 U/L (15-37) Alanine Aminotransferase (ALT/SGPT) 161 U/L (14-59) Alkaline Phosphatase 203 U/L (46-116) Total Protein 8.1 g/dL (6.4-8.2) Albumin 2.1 g/dL (3.4-5.0) Albumin/Globulin Ratio 0.4 (1.0-1.7) Procalcitonin < 0.10 ng/mL (0.00-0.10) Urine Collection Type Unknown Urine Color Devi Urine Clarity Clear Urine pH 6.0 (<5.0-8.0) Urine Specific Dunlo 1.025 (1.000-1.030) Urine Protein Negative mg/dL (NEG-TRACE) Urine Glucose (UA) Negative mg/dL (NEG) Urine Ketones (Stick) Negative mg/dL (NEG) Urine Blood Moderate (NEG) Urine Nitrite Negative (NEG) Urine Bilirubin Negative (NEG) Urine Urobilinogen Dipstick 1.0 mg/dL (0.2 mg/dL) Urine Leukocyte Esterase Small (NEG) Urine RBC 6-10 /HPF (0-2) Urine WBC 5-10 /HPF (0-4) Urine Squamous Epithelial Cells Few /LPF Urine Bacteria Moderate /HPF (0-FEW) Urine Mucus Slight /LPF Test 08/18/20 08:25 08/18/20 09:50 White Blood Count 3.8 x10^3/uL (4.0-11.0) Red Blood Count 3.51 x10^6/uL (3.50-5.40) Hemoglobin 11.8 g/dL (12.0-15.5) Hematocrit 35.2 % (36.0-47.0) Mean Corpuscular Volume 100 fL (79-100) Mean Corpuscular Hemoglobin 34 pg (25-35) Mean Corpuscular Hemoglobin Concent 34 g/dL (31-37) Red Cell Distribution Width 15.4 % (11.5-14.5) Platelet Count 55 x10^3/uL (140-400) Neutrophils (%) (Auto) 88 % (31-73) Lymphocytes (%) (Auto) 9 % (24-48) Monocytes (%) (Auto) 4 % (0-9) Eosinophils (%) (Auto) 0 % (0-3) Basophils (%) (Auto) 0 % (0-3) Neutrophils # (Auto) 3.3 x10^3/uL (1.8-7.7) Lymphocytes # (Auto) 0.3 x10^3/uL (1.0-4.8) Monocytes # (Auto) 0.1 x10^3/uL (0.0-1.1) Eosinophils # (Auto) 0.0 x10^3/uL (0.0-0.7) Basophils # (Auto) 0.0 x10^3/uL (0.0-0.2) Segmented Neutrophils % 92 % (35-66) Band Neutrophils % 2 % (0-9) Lymphocytes % 2 % (24-48) Monocytes % 4 % (0-10) Platelet Estimate Decreased (ADEQUATE) Sodium Level 138 mmol/L (136-145) Potassium Level 4.3 mmol/L (3.5-5.1) Chloride Level 108 mmol/L (98-107) Carbon Dioxide Level 25 mmol/L (21-32) Anion Gap 5 (6-14) Blood Urea Nitrogen 17 mg/dL (7-20) Creatinine 0.7 mg/dL (0.6-1.0) Estimated GFR (Cockcroft-Gault) 84.5 BUN/Creatinine Ratio 24 (6-20) Glucose Level 112 mg/dL (70-99) Calcium Level 8.2 mg/dL (8.5-10.1) Phosphorus Level 2.5 mg/dL (2.6-4.7) Magnesium Level 2.0 mg/dL (1.8-2.4) Total Bilirubin 1.7 mg/dL (0.2-1.0) Aspartate Amino Transf (AST/SGOT) 201 U/L (15-37) Alanine Aminotransferase (ALT/SGPT) 176 U/L (14-59) Alkaline Phosphatase 221 U/L (46-116) Total Protein 9.1 g/dL (6.4-8.2) Albumin 2.4 g/dL (3.4-5.0) Albumin/Globulin Ratio 0.4 (1.0-1.7) SARS-CoV-2 Antigen (Rapid) Negative (NEGATIVE) Laboratory Tests Test 08/17/20 16:15 08/17/20 16:45 08/17/20 17:05 08/17/20 18:27 White Blood Count 4.1 x10^3/uL (4.0-11.0) Red Blood Count 3.23 x10^6/uL (3.50-5.40) Hemoglobin 11.1 g/dL (12.0-15.5) Hematocrit 32.3 % (36.0-47.0) Mean Corpuscular Volume 100 fL (79-100) Mean Corpuscular Hemoglobin 34 pg (25-35) Mean Corpuscular Hemoglobin Concent 34 g/dL (31-37) Red Cell Distribution Width 15.5 % (11.5-14.5) Platelet Count 61 x10^3/uL (140-400) Neutrophils (%) (Auto) 69 % (31-73) Lymphocytes (%) (Auto) 13 % (24-48) Monocytes (%) (Auto) 15 % (0-9) Eosinophils (%) (Auto) 3 % (0-3) Basophils (%) (Auto) 1 % (0-3) Neutrophils # (Auto) 2.8 x10^3/uL (1.8-7.7) Lymphocytes # (Auto) 0.5 x10^3/uL (1.0-4.8) Monocytes # (Auto) 0.6 x10^3/uL (0.0-1.1) Eosinophils # (Auto) 0.1 x10^3/uL (0.0-0.7) Basophils # (Auto) 0.0 x10^3/uL (0.0-0.2) Prothrombin Time 17.7 SEC (11.7-14.0) Prothromb Time International Ratio 1.5 (0.8-1.1) Activated Partial Thromboplast Time 35 SEC (24-38) Lactic Acid Level 1.5 mmol/L (0.4-2.0) Coronavirus (PCR) Not detected (Not Detected) Ammonia 53 mcmol/L (11-34) Influenza Type A Antigen Negative (NEGATIVE) Influenza Type B Antigen Negative (NEGATIVE) Sodium Level 137 mmol/L (136-145) Potassium Level 3.3 mmol/L (3.5-5.1) Chloride Level 108 mmol/L (98-107) Carbon Dioxide Level 23 mmol/L (21-32) Anion Gap 6 (6-14) Blood Urea Nitrogen 13 mg/dL (7-20) Creatinine 0.6 mg/dL (0.6-1.0) Estimated GFR (Cockcroft-Gault) 101.0 BUN/Creatinine Ratio 22 (6-20) Glucose Level 118 mg/dL (70-99) Calcium Level 7.9 mg/dL (8.5-10.1) Total Bilirubin 1.6 mg/dL (0.2-1.0) Aspartate Amino Transf (AST/SGOT) 205 U/L (15-37) Alanine Aminotransferase (ALT/SGPT) 161 U/L (14-59) Alkaline Phosphatase 203 U/L (46-116) Total Protein 8.1 g/dL (6.4-8.2) Albumin 2.1 g/dL (3.4-5.0) Albumin/Globulin Ratio 0.4 (1.0-1.7) Procalcitonin < 0.10 ng/mL (0.00-0.10) Urine Collection Type Unknown Urine Color Devi Urine Clarity Clear Urine pH 6.0 (<5.0-8.0) Urine Specific Dunlo 1.025 (1.000-1.030) Urine Protein Negative mg/dL (NEG-TRACE) Urine Glucose (UA) Negative mg/dL (NEG) Urine Ketones (Stick) Negative mg/dL (NEG) Urine Blood Moderate (NEG) Urine Nitrite Negative (NEG) Urine Bilirubin Negative (NEG) Urine Urobilinogen Dipstick 1.0 mg/dL (0.2 mg/dL) Urine Leukocyte Esterase Small (NEG) Urine RBC 6-10 /HPF (0-2) Urine WBC 5-10 /HPF (0-4) Urine Squamous Epithelial Cells Few /LPF Urine Bacteria Moderate /HPF (0-FEW) Urine Mucus Slight /LPF Test 08/18/20 08:25 08/18/20 09:50 White Blood Count 3.8 x10^3/uL (4.0-11.0) Red Blood Count 3.51 x10^6/uL (3.50-5.40) Hemoglobin 11.8 g/dL (12.0-15.5) Hematocrit 35.2 % (36.0-47.0) Mean Corpuscular Volume 100 fL (79-100) Mean Corpuscular Hemoglobin 34 pg (25-35) Mean Corpuscular Hemoglobin Concent 34 g/dL (31-37) Red Cell Distribution Width 15.4 % (11.5-14.5) Platelet Count 55 x10^3/uL (140-400) Neutrophils (%) (Auto) 88 % (31-73) Lymphocytes (%) (Auto) 9 % (24-48) Monocytes (%) (Auto) 4 % (0-9) Eosinophils (%) (Auto) 0 % (0-3) Basophils (%) (Auto) 0 % (0-3) Neutrophils # (Auto) 3.3 x10^3/uL (1.8-7.7) Lymphocytes # (Auto) 0.3 x10^3/uL (1.0-4.8) Monocytes # (Auto) 0.1 x10^3/uL (0.0-1.1) Eosinophils # (Auto) 0.0 x10^3/uL (0.0-0.7) Basophils # (Auto) 0.0 x10^3/uL (0.0-0.2) Segmented Neutrophils % 92 % (35-66) Band Neutrophils % 2 % (0-9) Lymphocytes % 2 % (24-48) Monocytes % 4 % (0-10) Platelet Estimate Decreased (ADEQUATE) Sodium Level 138 mmol/L (136-145) Potassium Level 4.3 mmol/L (3.5-5.1) Chloride Level 108 mmol/L (98-107) Carbon Dioxide Level 25 mmol/L (21-32) Anion Gap 5 (6-14) Blood Urea Nitrogen 17 mg/dL (7-20) Creatinine 0.7 mg/dL (0.6-1.0) Estimated GFR (Cockcroft-Gault) 84.5 BUN/Creatinine Ratio 24 (6-20) Glucose Level 112 mg/dL (70-99) Calcium Level 8.2 mg/dL (8.5-10.1) Phosphorus Level 2.5 mg/dL (2.6-4.7) Magnesium Level 2.0 mg/dL (1.8-2.4) Total Bilirubin 1.7 mg/dL (0.2-1.0) Aspartate Amino Transf (AST/SGOT) 201 U/L (15-37) Alanine Aminotransferase (ALT/SGPT) 176 U/L (14-59) Alkaline Phosphatase 221 U/L (46-116) Total Protein 9.1 g/dL (6.4-8.2) Albumin 2.4 g/dL (3.4-5.0) Albumin/Globulin Ratio 0.4 (1.0-1.7) SARS-CoV-2 Antigen (Rapid) Negative (NEGATIVE) Allergies Allergies Coded Allergies Type Severity Reaction Last Updated Verified tetracycline Allergy Intermediate Hives 06/15/19 Yes Disposition/Orders: Other (left ama) Justicifation of Admission Dx: Justifications for Admission: Justification of Admission Dx: N/A ZAIDA KHALIL MD Aug 18, 2020 13:17
[2020-08-18 13:23] LABS: BF CLARITY TURBID; BF COLOR RED; BF MON % 75 %; BF OTHER % 3 %; BF PMN % 22 %; BF RBC COUNT 52117 /cmm (Not Established); BF SOURCE PLEURAL; BF WBC COUNT 422 /cmm (Not Established)
--- NOTE | 2020-08-18 13:31 | NUR ---
pt left at 1315 AMA...she did not want to stay and have the dr's sign off so that she may leave, we were going to have Stephanie have conversation with her about hospice. she just wanted to go home. took out her IV and then security and Jessica BROWNING walked her out to the ED dept. no meds were given, she just had a para and thoracentesis this morning, they took off 1400 from Right lung and 500 from belly area. Louis Mullen RN
--- NOTE | 2020-08-18 16:41 | NUR ---
SW following for discharge planning. Spoke with RN and reviewed chart. SW called into pt's room to discuss hospice referral. LVM for [facility] ([phone]). Referral sent to [facility] to assess for community hospice. Pt choice of vendor form completed. Pt anxious about getting home to her dogs and left AMA. [facility] to attempt to follow up with pt in the community. No further SW needs at this time.
== END 2020-08-18 13:15 | disposition left against medical advice (07) | DRG 432 ==
LOC: ER 16:06 → 6 SOUTH 18:42 → UNDOADMIN 18:42
PROVIDERS: ADMIT Internal Medicine; ATTEND Internal Medicine
PROC: 0W9G3ZZ Drainage of Peritoneal Cavity, Percutaneous Approach (ICD-10-PCS; principal; 2020-08-18)
PROC: 0W993ZZ Drainage of Right Pleural Cavity, Percutaneous Approach (ICD-10-PCS; 2020-08-18)
DX: K74.60 Unspecified cirrhosis of liver (principal); E43 Unspecified severe protein-calorie malnutrition; C22.0 Liver cell carcinoma; J91.8 Pleural effusion in other conditions classified elsewhere; R18.8 Other ascites; D68.9 Coagulation defect, unspecified; R06.03 Acute respiratory distress; E87.6 Hypokalemia; F17.210 Nicotine dependence, cigarettes, uncomplicated; D64.9 Anemia, unspecified; K80.20 Calculus of gallbladder without cholecystitis without obstruction; R16.1 Splenomegaly, not elsewhere classified; D69.6 Thrombocytopenia, unspecified; D72.819 Decreased white blood cell count, unspecified; Z20.822 Contact with and (suspected) exposure to COVID-19; Z88.1 Allergy status to other antibiotic agents; Z90.49 Acquired absence of other specified parts of digestive tract; Z85.05 Personal history of malignant neoplasm of liver; Z91.19 Patient's noncompliance with other medical treatment and regimen; Z83.3 Family history of diabetes mellitus
CPT/HCPCS: 32555; 36415; 49083; 71045; 74177; 80053; 81001; 82140; 83605; 83735; 84100; 84145; 84157; 85007; 85025; 85610; 85730; 87015; 87040; 87071; 87075; 87077; 87086; 87205; 87426; 87804; 89050; 93005; 96372; 96374; 96375; C1892; J1100; J1650; J1940; J2060; J2270; J3490; Q9967; U0003; 99285-25; G0378